=== PATIENT | female | born 1955 | race Caucasian/White ===

== ENCOUNTER 2016-08-11 21:18 | Emergency (ER) | payer BC ==
[~2016-08-11] VITALS: Ht 152.4 cm; Wt 44.6 kg
[~2016-08-11 21:18] MED LIST: CALC500T83 PO; MEDR2.5T PO; MULTTAB58 PO; [UNRECOGNIZED DRUG - CODE] PO
[2016-08-11 21:24] VITALS: TEMP 36.6; Ht 152.4 cm; Wt 44.6 kg
[2016-08-11] MEDS ORDERED: ONDANSETRON INJ 2 MG/ML 2 ML VIAL IM STA (21:38)
[2016-08-11] MEDS ORDERED: MoRPHine SULFATE 10 MG/ML CARP/VIAL IM STA (21:38)
[2016-08-11] MEDS ORDERED: AMOX875T PO (22:01)
[2016-08-11] MEDS ORDERED: MEDR2.5T5 PO (22:01)
[2016-08-11] MEDS ORDERED: VLM2 PO (22:01)
[2016-08-11] MEDS ORDERED: TRD10 PO (22:01)
[2016-08-11] MEDS ORDERED: IBUP-103 PO (22:01)
--- NOTE | 2016-08-11 22:03 | EMERGENCY ROOM VISIT NOTE ---
ED Visit Note First contact with patient: 21:31 CHIEF COMPLAINT: Dental pain s/p procedure this afternoon HISTORY OF PRESENT ILLNESS: This 61-year-old female patient presented to the emergency department complaining of increased until pain since a procedure was performed this afternoon. Patient states 5 weeks ago, she had a tooth extraction. She states she has been in pain for 4 weeks, so saw her family dentist today. The patient states the family dentist told her that the bone was exposed, so they performed a procedure to cut the skin back, she down the bone, then sutured the skin back together. The patient states this procedure was done this afternoon at approximately 2:00. The patient was advised to use collagen on the surgical site, however she states she ran out of the collagen she was given, and has been unable to keep it on the tooth. The patient states she was also prescribed tramadol, which she was given from her dentist area and she states she took one 50 mg tramadol at approximately 5:00 this evening, along with 600 mg ibuprofen. The pain is steady and severe and radiates to the face. The patient did not call her dentist this evening. They rate their pain a 10/10 with no relief. Denies facial swelling or fever. The patient denies any discharge from the mouth. REVIEW OF SYSTEMS: A 6 system review of systems was completed with positives and pertinent negatives listed in the HPI. ALLERGIES: Thimerosal MEDICATIONS: Medroxyprogesterone, Menest, multivitamin, amoxicillin, tramadol, ibuprofen PMH: None SOCIAL HISTORY: And admits to smoking one pack per day. She states she did smoke this evening after her procedure. The patient also admits to drinking one to 2 glasses of wine per night. She states she did drink 2 glasses of wine this evening. The patient denies drug use. PHYSICAL EXAM: Vitals are noted on the nurse's note and reviewed by myself. Vital signs stable. Temperature 36.6C orally. GENERAL: 61 year old female, in no acute distress, but appears in pain, crying, nondiaphoretic, well- developed well-nourished. Mouth: The site of the #30 tooth is swollen with sutures in place. The remainder of the pharynx and tonsils are without erythema , edema, or exudate. The airway is patent. There is no facial swelling, cervical or submandibular lymphadenopathy. The patient appears uncomfortable and in pain. The patient has overall poor dental hygiene. EARS: External auditory canals clear, tympanic membranes pearly diaz without erythema or effusion bilaterally. ED COURSE: The patient was seen and evaluated as above. She was given a dose of IM morphine 10 mg and IM Zofran 4 mg. The patient does report improvement in her symptoms with these medications. She was discharged home in good condition with a home pack for Percocet 5/325. The patient is encouraged to follow up with her dentist tomorrow for increased pain control. I did consult PDMP prior to prescribing narcotics. No suspicious findings noted. DIFFERENTIAL DIAGNOSIS: odontalgia, abscess, infection, dental caries, acute sinusitis, and others. DIAGNOSIS: Odontalgia s/p surgical procedure DISCHARGE INSTRUCTIONS & TREATMENT: You have been treated in the Emergency Department for Dental Pain. You have received pain medicine in the emergency department which impairs your ability to operate a vehicle. It is illegal for you to drive after receiving these medicines. You have been prescribed Percocet to be used for pain control. This is a narcotic medication. You cannot drive or consume alcohol while on this medicine. This medicine should only be used for pain that cannot be controlled with ziag-lec-fqwxadj pain medicines. Take amoxicillin as directed by your dentist. For pain control, you can use the following rzyb-sse-swghtwq medicines (if >12 yo): - Regular strength (325mg/tab) Tylenol (acetaminophen) 2 tabs every 4-6 hours as needed. Do not exceed 12 tablets in a 24 hour period. Avoid taking more than 4 grams (4000 mg) of Tylenol per day. This includes any other sources of acetaminophen you may take on a regular basis. - Regular strength (200 mg/tab) Advil (ibuprofen) 1-2 tabs every 4-6 hours as needed. Do not exceed a dose of 3200 mg per day. Refrain from smoking cigarettes or using chewing tobacco until you have been evaluated by your dentist. Keeping beverages lukewarm and consuming soft foods can decrease your pain. Warm compresses over the affected area may offer some relief. You MUST seek evaluation of your dental pain by a dentist following your visit to the Emergency Department. The Emergency Department is not capable of treating dental issues long-term. You should call your dentist as soon as possible to make an appointment for evaluation of your dental pain. Return to the emergency department if you develop the following symptoms despite treatment course outlined above: fever, intractable pain, increased redness, swelling, or purulent discharge. Problem List Surgical Problems: (1) Hx of appendectomy Status: Resolved (2) Previous section Status: Resolved Current/Historical Medications Scheduled Amoxicillin & Pot Clavulanate (Augmentin 875-125 mg), 1 TAB PO BID Calcium (Calcium), 500 MG PO QID Medroxyprogesterone Acetate (Provera), 2.5 MG PO DAILY Multiple Vitamin (Multivitamin), 1 TAB PO QAM Scheduled PRN Diazepam (Diazepam), 2 MG PO UD PRN for Anxiety Ibuprofen Tab (Advil), 400-600 MG PO Q6H PRN for Pain Ketorolac Tromethamine (Ketorolac Tromethamine), 10 MG PO UD PRN for Pain Oxycodone/Acetaminophen 5MG/325MG (Percocet 5MG/325MG), 1 TAB PO Q6 PRN for Pain Allergies Coded Allergies: Thimerosal (Verified Allergy, Unknown, swelling, 08/11/16) Vital Signs Date Time Temp Pulse Resp B/P (MAP) Pulse Ox O2 Delivery O2 Flow Rate FiO2 08/11/16 22:26 94 18 129/60 94 08/11/16 21:24 36.6 109 22 165/69 95 Room Air Medications Administered Medications (Trade) Dose Ordered Sig/Jennifer Route Start Time Stop Time Status Last Admin Dose Admin Morphine Sulfate (MoRPHine SULFATE INJ) 10 mg NOW STAT IM 08/11/16 21:38 08/11/16 21:42 DC 08/11/16 21:47 10 MG Ondansetron HCl (Zofran Inj) 4 mg NOW STAT IM 08/11/16 21:38 08/11/16 21:42 DC 08/11/16 21:45 4 MG Oxycodone/ Acetaminophen (Percocet 5/ 325MG Home Pack) 1 homepack UD ONCE PO 08/11/16 22:15 08/11/16 22:16 DC 08/11/16 22:24 1 HOMEPACK Departure Information Impression Primary Impression: Odontalgia Dispostion Home / Self-Care Condition GOOD Prescriptions Oxycodone/Acetaminophen 5MG/325MG (PERCOCET 5MG/325MG) Tab 1 TAB PO Q6 Y for Pain, #8 TAB For Initial Treatment Prov: Stacie Song PA-C 08/11/16 Referrals Azalia Campuzano D.O. (PCP) Patient Instructions My [facility] Additional Instructions You have been treated in the Emergency Department for Dental Pain. You have received pain medicine in the emergency department which impairs your ability to operate a vehicle. It is illegal for you to drive after receiving these medicines. You have been prescribed Percocet to be used for pain control. This is a narcotic medication. You cannot drive or consume alcohol while on this medicine. This medicine should only be used for pain that cannot be controlled with oppt-gwi-xopkxwj pain medicines. Take amoxicillin as directed by your dentist. For pain control, you can use the following qjbx-bst-wcwgfxr medicines (if >12 yo): - Regular strength (325mg/tab) Tylenol (acetaminophen) 2 tabs every 4-6 hours as needed. Do not exceed 12 tablets in a 24 hour period. Avoid taking more than 4 grams (4000 mg) of Tylenol per day. This includes any other sources of acetaminophen you may take on a regular basis. - Regular strength (200 mg/tab) Advil (ibuprofen) 1-2 tabs every 4-6 hours as needed. Do not exceed a dose of 3200 mg per day. Refrain from smoking cigarettes or using chewing tobacco until you have been evaluated by your dentist. Keeping beverages lukewarm and consuming soft foods can decrease your pain. Warm compresses over the affected area may offer some relief. You MUST seek evaluation of your dental pain by a dentist following your visit to the Emergency Department. The Emergency Department is not capable of treating dental issues long-term. You should call your dentist as soon as possible to make an appointment for evaluation of your dental pain. Return to the emergency department if you develop the following symptoms despite treatment course outlined above: fever, intractable pain, increased redness, swelling, or purulent discharge.
[2016-08-11] MEDS ORDERED: OXYC-57 PO (22:07)
[2016-08-11] MEDS ORDERED: PERCOCET HOME PACK PO ONE (22:15)
[2016-08-11 22:26] VITALS: BP 129/60; PULSE 94; O2SAT 94
== END 2016-08-11 22:26 | disposition home or self-care (01) ==
LOC: C.EDB 21:20 → C.EDD 22:26
DX: K08.89 Other specified disorders of teeth and supporting structures (principal); F17.210 Nicotine dependence, cigarettes, uncomplicated

== ENCOUNTER → 2017-09-12 | Outpatient (CLI) | payer BC ==
[~2017-09-12] MED LIST changes: +AMOX875T PO; +IBUP-103 PO; +LATA0.5S OP; -MEDR2.5T PO; +MEDR2.5T5 PO; +NABU500T3 PO; +OXYC-90 PO; +TRD10 PO; +VLM2 PO; -[UNRECOGNIZED DRUG - CODE] PO
== END | disposition home or self-care (01) ==
LOC: C.RDSM 07:59
PROVIDERS: ATTEND Physical Medicine & Rehabilitation Sports Medicine
DX: M25.512 Pain in left shoulder (principal)

== ENCOUNTER 2017-09-17 10:38 | Emergency (ER) | payer BC ==
[~2017-09-17] VITALS: Ht 152.4 cm; Wt 42.6 kg
[~2017-09-17 10:38] MED LIST changes: -LATA0.5S OP; -NABU500T3 PO; -OXYC-90 PO
[2017-09-17 10:40] VITALS: TEMP 36.9; Ht 152.4 cm; Wt 42.6 kg
[2017-09-17] MEDS ORDERED: HYDROmorphone INJ 0.5 MG/0.5 ML SYR IM STA (10:58)
[2017-09-17] MEDS ORDERED: NABU500T3 PO (11:35)
[2017-09-17] MEDS ORDERED: OXYCODONE HCL IR 5 MG TAB (IMMEDIATE RELEASE) PO STA (11:35)
[2017-09-17] MEDS ORDERED: LATA0.5S OP (11:35)
[2017-09-17 11:44] VITALS: O2SAT 98
--- NOTE | 2017-09-17 11:52 | EMERGENCY ROOM VISIT NOTE ---
History First contact with patient: 10:53 Chief Complaint: SHOULDER PAIN Stated Complaint: RT SHOULDER PAIN, NO INJURY History of Present Illness The patient is a 62 year old female who presents to the Emergency Room via private vehicle accompanied by male with complaints of "right shoulder pain, no injury". The patient states that this past evening she was using an ab exercise roller noting that she had to have the arms fully outstretched. She does not think that she injured herself during this but when she woke up the following morning, which was this past Monday she noted severe pain in the right lateral proximal shoulder. It is worse with movement. She is right-hand dominant. She rates the overall pain is a 9/10. She takes nabumetone for her arthritis which is providing minimal relief for this. She also notes that she cannot get comfortable, and is having difficulty sleeping. She denies any chest pain or shortness of breath. No exertional symptoms. Review of Systems A complete 10-point Review of Systems was discussed with the patient, with pertinent positives and negatives listed in the History of Present Illness. All remaining Review of Systems questions can be considered negative unless otherwise specified. Past Medical/Surgical History Surgical Problems: (1) Hx of appendectomy (2) Previous section Family History Cancer Social History Smoking Status: Current Every Day Smoker Alcohol Use: occasionally Marital Status: Housing Status: lives with significant other Current/Historical Medications Scheduled Calcium (Calcium), 500 MG PO QID Latanoprost (Xalatan 0.005% Oph Ailin), 1 DROPS OP HS Medroxyprogesterone Acetate (Provera), 2.5 MG PO DAILY Multiple Vitamin (Multivitamin), 1 TAB PO QAM Nabumetone (Relafen), 500 MG PO BID Scheduled PRN Diazepam (Diazepam), 2 MG PO UD PRN for Anxiety Oxycodone Ir (Roxicodone Ir), 1 TAB PO Q6 PRN for Pain Allergies Coded Allergies: Shellfish (Unverified Allergy, Unknown, swelling, 09/17/17) Thimerosal (Verified Allergy, Unknown, swelling, 08/11/16) Physical Exam Vital Signs Date Time Temp Pulse Resp B/P (MAP) Pulse Ox O2 Delivery O2 Flow Rate FiO2 09/17/17 13:57 67 18 149/51 97 Room Air 09/17/17 12:40 70 18 154/52 96 Room Air 09/17/17 11:44 98 09/17/17 10:40 36.9 96 18 170/83 97 Room Air Physical Exam VITAL SIGNS - Vital signs and nursing notes were reviewed. Stable. Afebrile. GENERAL -62-year-old female appearing her stated age who is in no acute distress. Communicates well with provider and answers questions appropriately. SKIN - Without rashes. No meningeal or petechial rash. The skin overlying the right shoulder is unremarkable. HEAD - NC/AT. EYES - PERRL with EOMI bilaterally. Sclera anicteric. EARS - No deformities of external structures noted on gross examination bilaterally. NOSE - Midline and without cyanosis. No epistaxis or purulent drainage noted. MOUTH/OROPHARYNX - Without perioral cyanosis. NECK - Neck with FROM. Supple to palpation. No nuchal rigidity or evidence of meningitis. No C-spine tenderness. No paraspinous musculature tenderness in the C-spine. LUNGS - Chest wall symmetric without accessory muscle use, intercostals retractions, or central cyanosis. Normal vesicular breath sounds CTA B/L. No wheezes, rales, or rhonchi appreciated. CARDIAC - RRR with S1/S2. No murmur, rubs, or gallops appreciated. EXTREMITIES - No clubbing or peripheral cyanosis. No pretibial edema present. There is tenderness to palpation overlying the musculature of the right proximal lateral shoulder. She has excellent distal pulses and good shrimp packer strength in the right upper extremity. Decreased range of motion of the right shoulder severely limited secondary to patient's appreciated level of pain. No clavicular or posterior scapular tenderness. No bony deformity. +5/5 strength noted in UE/LE bilaterally. NEUROLOGIC - Cranial nerves II through XII grossly intact. Sensory intact to light touch throughout. She is neurovascularly intact in right upper extremity. PSYCH - A&O, and cooperates fully with examiner. Pt is very pleasant and interacts well with examiner. Medical Decision & Procedures ER Provider Diagnostic Interpretation: R SHOULDER MIN 2 VIEWS ROUTINE CLINICAL HISTORY: Right shoulder pain. No recent trauma. COMPARISON: Right shoulder radiographs January 31, 2016. FINDINGS: Alignment of the right shoulder is anatomic. No acute fracture is noted. Calcific density along the superolateral aspect the right humeral head has increased since exam of January 31, 2016. Glenohumeral joint osteophytosis is noted. IMPRESSION: 1. No acute fracture or dislocation of the right shoulder. 2. Increase in findings consistent with calcific tendinitis of the right rotator cuff since exam of January 31, 2016. 3. Moderate osteoarthritis of the right glenohumeral and acromioclavicular joints. Electronically signed by: Brian Victor M.D. 09/17/2017 1:17 PM Dictated Date/Time: 09/17/2017 1:15 PM Medications Administered Medications (Trade) Dose Ordered Sig/Jennifer Route Start Time Stop Time Status Last Admin Dose Admin Hydromorphone HCl (Dilaudid Inj) 0.5 mg NOW STAT IM 09/17/17 10:58 09/17/17 11:00 DC 09/17/17 11:06 0.5 MG Oxycodone HCl (Roxicodone Immediate Rel Tab) 5 mg NOW STAT PO 09/17/17 11:35 09/17/17 11:37 DC 09/17/17 11:42 5 MG Medical Decision Patient was seen and evaluated as above in room D7. Review was performed of nursing notes and vital signs. After obtaining a thorough history and physical examination the above work up was performed. She presents to us today with right shoulder pain. She is nontoxic on examination but does appear to be in pain. No chest pain or shortness of breath. It is worse with range of motion. She was given IM Dilaudid, as well as ice packs. She was reevaluated and persistence of pain. She was given oxycodone tablet. She was reevaluated and feeling better, to point where she could then undergo x-rays of the shoulder. Results as above. I suspect she is likely experiencing calcific tendinitis. She is already on NSAIDs. She will be given a short prescription of oxycodone for her pain until she can follow-up with orthopedics. Her appointment is later this week with her established orthopedic group. Here her vital signs are stable. She was educated upon the medication. I do not suspect DC or PE. The patient was educated upon management, educated upon todays findings/results , educated upon symptoms in which to return, had questions answered prior to discharge, and was discharged home in good condition. No red flags in the [place] drug monitoring system. In the evaluation and treatment of this patient, the following differential diagnoses were considered: Shoulder Contusion, Shoulder Fracture, Shoulder Dislocation, Thoracic Outlet Syndrome, Adhesive Capsulitis, Rotator Cuff Tear, Proximal Clavicle Head Fracture, Apical Pneumonia, Pneumothorax, Hemothorax, or TB. Impression Primary Impression: Calcific tendinitis of right shoulder Departure Information Dispostion Home / Self-Care Condition GOOD Prescriptions Oxycodone Ir (Roxicodone Ir) 5 Mg Tab 1 TAB PO Q6 Y for Pain, #18 TAB For Initial Treatment Prov: Srikanth Gifford PA-C 09/17/17 Referrals Azalia Campuzano D.O. (PCP) Patient Instructions My [facility] Additional Instructions You have been treated in the Emergency Department for Shoulder Pain. You have received pain medicine in the emergency department which impairs your ability to operate a vehicle. It is illegal for you to drive after receiving these medicines. You have been prescribed oxycodone immediate release to be used for pain control. This is a narcotic medication. You cannot drive or consume alcohol while on this medicine. This medicine should only be used for pain that cannot be controlled with riaz-rac-fiddvrw pain medicines. Please take a stool softener with this as this can cause constipation. You may continue regular medications. If this is a recent injury (<24 hrs), ice can be applied to the area of pain for the first 3 days to help decrease pain and inflammation. Please keep your appointment with the orthopedic doctor for this week. Keep the shoulder brace/sling in place until evaluated by Orthopedics. Continue to perform range of motion exercises several times per day to help prevent the development of a "frozen shoulder". Return to the Emergency Department if your current symptoms worsen despite treatment course outlined above, or if you develop any of the following symptoms : intractable pain despite aforementioned treatment course or new onset of numbness or tingling of the arm.
--- NOTE | 2017-09-17 13:18 | DIAGNOSTIC IMAGING REPORT ---
R SHOULDER MIN 2 VIEWS ROUTINE CLINICAL HISTORY: Right shoulder pain. No recent trauma. COMPARISON: Right shoulder radiographs January 31, 2016. FINDINGS: Alignment of the right shoulder is anatomic. No acute fracture is noted. Calcific density along the superolateral aspect the right humeral head has increased since exam of January 31, 2016. Glenohumeral joint osteophytosis is noted. IMPRESSION: 1. No acute fracture or dislocation of the right shoulder. 2. Increase in findings consistent with calcific tendinitis of the right rotator cuff since exam of January 31, 2016. 3. Moderate osteoarthritis of the right glenohumeral and acromioclavicular joints. Electronically signed by: Brian Victor M.D. 09/17/2017 1:17 PM Dictated Date/Time: 09/17/2017 1:15 PM
[2017-09-17] MEDS ORDERED: OXYC-90 PO (13:42)
[2017-09-17 13:57] VITALS: BP 149/51; PULSE 67; O2SAT 97
== END 2017-09-17 13:59 | disposition home or self-care (01) ==
LOC: C.EDB 10:40 → C.EDD 13:59
DX: M75.31 Calcific tendinitis of right shoulder (principal); X50.9XXA Other and unspecified overexertion or strenuous movements or postures, initial encounter; F17.200 Nicotine dependence, unspecified, uncomplicated; Z88.8 Allergy status to other drugs, medicaments and biological substances

== ENCOUNTER → 2017-09-22 | Outpatient (CLI) | payer BC ==
[~2017-09-22] MED LIST changes: -AMOX875T PO; -IBUP-103 PO; +LATA0.5S OP; +NABU500T3 PO; +OXYC-90 PO; -TRD10 PO
--- NOTE | 2017-09-22 08:56 | DIAGNOSTIC IMAGING REPORT ---
LEFT SHOULDER MRI HISTORY: Left shoulder pain. TECHNIQUE: Multiplanar multisequence MRI of the left shoulder was performed without contrast. COMPARISON STUDY: Left shoulder 09/12/2017. FINDINGS: AC joint: Small focus of cystic change at the distal clavicle consistent with degenerative change. Rotator cuff: There is an 8 mm focus of calcification at the distal supraspinatus tendon consistent with calcific tendinitis. Mild edema both within and surrounding the anterior distal fibers of the super spaced tendon likely corresponds to the tendinitis. No evidence for rotator cuff tear. Trace fluid within the subacromial/subdeltoid bursa is also likely reactive to the tendinitis. Labrum: Abnormal signal within the superior labrum best seen on coronal image 9. This is consistent with a SLAP tear. Biceps tendon: Intact Bones: No fracture or dislocation. Cartilage: Intact Miscellaneous: No significant joint effusion. IMPRESSION: 1. Abnormal signal within the superior labrum consistent with a SLAP tear. 2. Supraspinatus calcific tendinitis. Electronically signed by: Ilia Nguyen M.D. 09/22/2017 8:55 AM Dictated Date/Time: 09/22/2017 8:50 AM
== END | disposition home or self-care (01) ==
LOC: C.MRI 07:43
PROVIDERS: ATTEND Physical Medicine & Rehabilitation Sports Medicine
DX: M75.02 Adhesive capsulitis of left shoulder (principal); M75.32 Calcific tendinitis of left shoulder

== ENCOUNTER 2023-05-25 19:44 | Inpatient (IN) ==
[2023-05-25 20:32] LABS: Basophils # (auto) 0.02 K/uL (0.00-0.20); Basophils % (auto) 0.2 %; Eosinophils # (auto) 0.01 K/uL (0.00-0.50); Eosinophils % (auto) 0.1 %; Hematocrit (blood only) 38.7 % (37.0-47.0); Immature Granulocytes # (auto) 0.07 K/uL (0.01-0.20); Immature Granulocytes % (auto) 0.6 %; Lymphocytes # (auto) 1.53 K/uL (1.20-3.40); Lymphocytes % (auto) 12.1 %; Mean Corpuscular Hemoglobin 32.7 pg (25.0-34.0); Mean Corpuscular Hgb Conc 36.2 g/dL (32.0-36.0); Mean Corpuscular Volume 90.4 fL (80.0-100.0); Mean Platelet Volume 9.1 fL (9.4-12.4); Monocytes # (auto) 0.96 K/uL (0.11-0.59); Monocytes % (auto) 7.6 %; Neutrophils # (auto) 10.08 K/uL (1.40-6.50); Neutrophils % (auto) 79.4 %; Platelet Count 286 K/uL (130-400); RDW Coefficient of Variation 12.9 % (11.5-14.5); RDW Standard Deviation 42.9 fL (36.4-46.3); Red Blood Count 4.28 M/uL (4.20-5.40); White Blood Count 12.67 K/ul (4.8-10.8)
[2023-05-25 20:40] LABS: Albumin Globulin Ratio 1.5 (0.9-2); Albumin Level 4.4 gm/dl (3.4-5.0); BUN Creatinine Ratio 16.7 (10-20); Bilirubin,Total 0.2 mg/dl (0.2-1.0); Creatinine Clr Calc Pharmacy 64.9 ml/min; Est GFR (African American) 112.4 ml/min; Potassium 3.5 mmol/L (3.5-5.1); Total Protein 7.4 gm/dl (6.0-8.3)
[2023-05-25 20:46] LABS: Troponin I High Sensitivity 3.3 pg/ml (0-14)
[2023-05-25 20:57] LABS: INR 0.9 (0.9-1.1); Partial Thromboplastin Ratio 1.1; Partial Thromboplastin Time 32 Seconds (21-31); Prothrombin Time 9.4 Seconds (9.0-12.0)
[2023-05-25 22:00] LABS: Adenovirus PCR Not Detected (NotDetected); Bordetella parapertussis PCR Not Detected (NotDetected); Bordetella pertussis PCR Not Detected (NotDetected); Chlamydia pneumoniae PCR Not Detected (NotDetected); Coronavirus 229E PCR Not Detected (NotDetected); Coronavirus CoV-2 (COVID19)PCR Not Detected (NotDetected); Coronavirus HKU1 PCR Not Detected (NotDetected); Coronavirus NL63 PCR Not Detected (NotDetected); Coronavirus OC43PCR Not Detected (NotDetected); Human Metapneumovirus PCR DETECTED (NotDetected); Influenza A PCR Not Detected (NotDetected); Influenza B PCR Not Detected (NotDetected); Mycoplasma pneumoniae PCR Not Detected (NotDetected); Parainfluenza Virus 1 PCR Not Detected (NotDetected); Parainfluenza Virus 2 PCR Not Detected (NotDetected); Parainfluenza Virus 3 PCR Not Detected (NotDetected); Parainfluenza Virus 4 PCR Not Detected (NotDetected); Respiratory Syncytial VirusPCR Not Detected (NotDetected); Rhinovirus/Enterovirus PCR Not Detected (NotDetected)
--- NOTE | 2023-05-25 22:06 | Emergency Department Note ---
Impression & Plan SOB (shortness of breath), Pneumonia, Leukocytosis, Failure of outpatient treatment, Infection due to human metapneumovirus (hMPV), Elevated lactic acid level ED Provider Note NAME: DUGLAS FUENTES AGE: 68 SEX: F : 1955 ARRIVES VIA: Walk-In INFORMANT: [Patient] ED PROVIDER(S): [Vin Wolf MD] CHIEF COMPLAINT: Short of breath, cough HISTORY OF PRESENT ILLNESS: The patient is a 68-year-old female who does smoke tobacco. She states that she has had about 6 days of symptoms. She started off with a runny nose, cough, some sweats and chills. She felt short of breath. Patient did have some diarrhea. The patient went to her doctor's office a few days ago. She was diagnosed with pneumonia and placed on Zithromax as well as prednisone. Patient states that despite the medication, she feels worse and she states that she thinks she may have dropped her blood pressure as she has had some amnesia over the last 24 hours. She feels like she was just not thinking properly. The patient was noted to be short of breath and had a lower O2 saturation in triage, she was placed on oxygen. She does not wear oxygen typically. No known sick contacts. PMHx/PSHx/Social Hx: See Below PHYSICAL EXAM: GENERAL: Patient is in no acute distress. Thin. HEENT: No acute trauma, normocephalic atraumatic, mucous membranes moist, no nasal congestion. NECK: No stridor, no adenopathy, no meningismus, trachea is midline. LUNGS: Diminished breath sounds with some wheezes and crackles at the bases, no obvious respiratory distress. HEART: Without murmurs gallops or rubs, regular rate and rhythm. ABDOMEN: Soft, nontender, no peritonitis. EXTREMITIES: No cyanosis, full range of motion of all the joints without pain or difficulty. NEUROLOGIC: Oriented x 3, no acute motor or sensory deficits, no focal weakness. SKIN: No jaundice, no diaphoresis. DIFFERENTIAL DIAGNOSIS: Bronchitis or pneumonia, CHF, exacerbation of COPD, anemia, RI, hypoxia, among others. EMERGENCY DEPARTMENT PROCEDURES: MEDICAL DECISION MAKING: There is a mild leukocytosis, this certainly could be consistent with infection or possibly, her recent steroid use. There was a normal hemoglobin and platelet count. No concerning coagulopathy. Renal panel suggested some dehydration. Lactic acid level was elevated at 4.6, I suspect this elevation is secondary to dehydration and hypoxia, I do not believe the patient to be septic. There is no concerning liver enzyme elevation. ECG showed a sinus tachycardia, no ischemia or dysrhythmia. Cardiac enzyme testing x 1 was not consistent with acute cardiac injury. Respiratory bio fire was positive for human metapneumovirus. Chest film shows some congestion at both bases consistent with potential pneumonia. There was no pneumothorax. On exam, there were diminished breath sounds bilaterally. The patient was given IV ceftriaxone as antibiotic coverage. She was given a DuoNeb, IV Solu-Medrol and IV saline. Patient has failed outpatient treatment. She has had some issues with her memory over the last few days and has felt quite weak and washed out. She was placed on oxygen in triage because of a low O2 saturation. Given her history of tobacco use, given the findings on x-ray, given her elevated lactic acid level, I do think a hospital stay is warranted. I suspect the patient was hypoxic as an outpatient. I spoke with the patient and case management, the on-call hospitalist was consulted. Prior/Outside records/notes reviewed: None. ECG per my interpretation: Indication was shortness of breath. The ECG shows a sinus tachycardia with a rate of 105. There is significant baseline artifact. There is potential old anterior and old inferior infarct. No acute ST elevation, no PVCs. The QTc is 475. Continuous Cardiac Monitoring per my interpretation: An order was placed for continuous cardiac monitoring. The monitor shows a rate of 95 with normal sinus rhythm. Imaging/x-ray results per my interpretation: Chest x-ray shows congestion in both bases. There is evidence for some COPD. No pneumothorax. Chronic Medical/Social conditions affecting care: Chronic smoker. Care/Management discussed with: Case management, the on-call hospitalist. Level of care consideration(s): After review of the information above and other included data: --I believe the patient requires escalation of care to admission Critical Care Note: I have personally spent 41 minutes of critical care time in the direct management of this patient. This includes bedside care, interpretation of diagnostic studies, and testing, discussion with consultants, patient, and family members, and other required patient management activities. This 41 minutes is in excess of all separately billable procedures. DISPOSITION: Admission Past Med/Surg History Medical History (Updated 05/25/23 @ 23:29 by Vin Wolf MD) Osteoarthritis Glaucoma Migraine HX Surgical History H/O wrist surgery RT H/O elbow surgery RT TENNIS ELBOW History of esophagogastroduodenoscopy (EGD) History of colonoscopy H/O bilateral oophorectomy History of section History of appendectomy History of tooth extraction S/P tonsillectomy and adenoidectomy H/O eye surgery RT/LEFT "RADIAL KERATOTOMY" Family History Father Family hx of colon cancer Social History Smoking Status: Current every day smoker Cigarettes Per Day: 20 CIG DAILY; Second Hand Exposure: No; Do You Dip or Chew Tobacco: No; Hx Alcohol Use: Yes Alcohol type: wine Hx Substance Use: No Preferred Language: Malagasy Communication Ability: Effective Senior Project Manager Required: No Beliefs That Will Affect Care: None Current Living Situation: Spouse Feels Safe at Home: Yes Assistive Devices: Glasses Allergies Allergies Allergy/AdvReac Type Severity Reaction Status Date / Time thimerosal Allergy Intermediate swelling Verified 05/25/23 22:21 Home Meds Home Medications Medication Instructions Recorded Confirmed calcium carbonate (Calcium 600) 600 mg PO QAM 09/05/18 05/25/23 medroxyprogesterone 2.5 mg tablet 2.5 mg PO QAM 09/05/18 05/25/23 [id number] 8 mg-folic 400 1 tab PO QAM 09/05/18 05/25/23 mcg-K 50 mcg-lutein 300 mcg tablet (Multivitamin Women 50 Plus) albuterol sulfate 90 mcg/actuation 2 puff inhalation Q4 PRN Shortness 05/25/23 05/25/23 aerosol inhaler Of Breath Or Wheezing estradiol 0.5 mg tablet 0.5 mg PO QAM 05/25/23 05/25/23 Results & Data (ED) Vital Signs Vital Signs - 24 hr 05/25/23 19:48 05/25/23 19:52 05/25/23 19:53 Temperature 36.9 C Temperature Source Temporal Artery Scan Pulse Rate 117 H Pulse Rate [Apical] Pulse Rate from SpO2 Sensor Pulse Rhythm Regular Pulse Strength Normal Respiratory Rate 27 H Respiratory Effort / Characteristics Non-Labored Spontaneous Respiratory Depth Normal Respiratory Pattern Regular Blood Pressure 123/76 Blood Pressure [Right Arm] Blood Pressure Mean 91 Blood Pressure Mean [Right Arm] Blood Pressure Position Sitting Blood Pressure Position [Right Arm] Pulse Oximetry 97 92 Oxygen Delivery Method Room Air Nasal Cannula Nasal Cannula Oxygen Flow Rate 3 3 Sepsis Recent Fever Within 48 Hours No Sepsis New/Unexplained Change in Mental Status N/A Sepsis Action Taken by Nursing No Action Required 05/25/23 20:07 05/25/23 20:25 05/25/23 20:45 Temperature Temperature Source Pulse Rate 102 H 101 H Pulse Rate [Apical] 95 H Pulse Rate from SpO2 Sensor Pulse Rhythm Regular Pulse Strength Respiratory Rate 26 H 22 Respiratory Effort / Characteristics Non-Labored Spontaneous Respiratory Depth Normal Respiratory Pattern Regular Blood Pressure Blood Pressure [Right Arm] 127/71 Blood Pressure Mean Blood Pressure Mean [Right Arm] 89 Blood Pressure Position Blood Pressure Position [Right Arm] Semi-fowlers Pulse Oximetry 91 96 Oxygen Delivery Method Nasal Cannula Nasal Cannula Oxygen Flow Rate 3 3 Sepsis Recent Fever Within 48 Hours Sepsis New/Unexplained Change in Mental Status Sepsis Action Taken by Nursing 05/25/23 22:00 05/25/23 23:00 Temperature Temperature Source Pulse Rate 94 H Pulse Rate [Apical] 93 H Pulse Rate from SpO2 Sensor 94 H Pulse Rhythm Pulse Strength Respiratory Rate 24 18 Respiratory Effort / Characteristics Non-Labored Spontaneous Respiratory Depth Normal Respiratory Pattern Regular Blood Pressure Blood Pressure [Right Arm] 149/86 H Blood Pressure Mean Blood Pressure Mean [Right Arm] 107 Blood Pressure Position Blood Pressure Position [Right Arm] Semi-fowlers Pulse Oximetry 97 99 Oxygen Delivery Method Nasal Cannula Nasal Cannula Oxygen Flow Rate 3 3 Sepsis Recent Fever Within 48 Hours Sepsis New/Unexplained Change in Mental Status Sepsis Action Taken by Prison Medications Current Medication List: was personally reviewed by me Laboratory Data Attestation: I reviewed the patient's lab results. 05/25/23 20:03 05/25/23 20:03 Lab Results 05/25/23 05/25/23 05/25/23 Range/Units 20:03 22:50 Unknown WBC 12.67 H (4.8-10.8) K/ul RBC 4.28 (4.20-5.40) M/uL Hgb 14.0 (12.0-16.0) g/dl Hct 38.7 (37.0-47.0) % MCV 90.4 (80.0-100.0) fL MCH 32.7 (25.0-34.0) pg MCHC 36.2 H (32.0-36.0) g/dL RDW Std Deviation 42.9 (36.4-46.3) fL RDW Coeff of Haiely 12.9 (11.5-14.5) % Plt Count 286 (130-400) K/uL MPV 9.1 L (9.4-12.4) fL Immature Gran % (Auto) 0.6 % Neut % (Auto) 79.4 % Lymph % (Auto) 12.1 % Haakon % (Auto) 7.6 % Eos % (Auto) 0.1 % Baso % (Auto) 0.2 % Neut # (Auto) 10.08 H (1.40-6.50) K/uL Lymph # (Auto) 1.53 (1.20-3.40) K/uL Haakon # (Auto) 0.96 H (0.11-0.59) K/uL Eos # (Auto) 0.01 (0.00-0.50) K/uL Baso # (Auto) 0.02 (0.00-0.20) K/uL Immature Gran # (Auto) 0.07 (0.01-0.20) K/uL PT 9.4 (9.0-12.0) Seconds INR 0.9 (0.9-1.1) APTT 32 H (21-31) Seconds PTT Ratio 1.1 VBG pH 7.39 (7.36-7.41) VBG pCO2 33 L (38-50) mmHg VBG pO2 37 mmHg VBG HCO3 20 mmol/L VBG O2 Saturation < 60.0 % VBG Base Excess -4.1 mEq/L Sodium 135 L (136-145) mmol/L Potassium 3.5 (3.5-5.1) mmol/L Chloride 102 (98-107) mmol/L Carbon Dioxide 15 L (21-32) mmol/L Anion Gap 18 H (3-11) BUN 9 (6-23) mg/dl Creatinine 0.54 L (0.6-1.2) mg/dl Est Cr Clr Drug Dosing 64.9 ml/min Est GFR ( Amer) 112.4 ml/min Est GFR (Non-Af Amer) 97.0 ml/min BUN/Creatinine Ratio 16.7 (10-20) Glucose 173 H (70-99(Fasting)) mg/dl Lactate 4.6 H* (0.4-2.0) mmol/L Calcium 10.0 (8.6-10.3) mg/dl Magnesium 1.9 (1.7-2.4) mg/dl Total Bilirubin 0.2 (0.2-1.0) mg/dl AST 15 (13-39) U/L ALT 10 (7-52) U/L Alkaline Phosphatase 113 H (34-104) U/L Troponin I High Sens 3.3 (0-14) pg/ml Total Protein 7.4 (6.0-8.3) gm/dl Albumin 4.4 (3.4-5.0) gm/dl Globulin 3.0 (2.5-4.0) gm/dl Albumin/Globulin Ratio 1.5 (0.9-2) Adenovirus (PCR) Not Detected (NotDetected) B. pertussis DNA (PCR) Not Detected (NotDetected) B.parapertussis DNA PCR Not Detected (NotDetected) C. pneumoniae DNA (PCR) Not Detected (NotDetected) Coronavirus OC43 (PCR) Not Detected (NotDetected) Coronavirus HKU1 (PCR) Not Detected (NotDetected) Coronavirus 229E (PCR) Not Detected (NotDetected) SARS-CoV-2 (PCR) Not Detected (NotDetected) Coronavirus NL63 (PCR) Not Detected (NotDetected) Human Metapneumovir PCR DETECTED A (NotDetected) Influenza Type A (PCR) Not Detected (NotDetected) Influenza Type B (PCR) Not Detected (NotDetected) M. pneumoniae (PCR) Not Detected (NotDetected) Parainfluenza 1 (PCR) Not Detected (NotDetected) Parainfluenza 2 (PCR) Not Detected (NotDetected) Parainfluenza 3 (PCR) Not Detected (NotDetected) Parainfluenza 4 (PCR) Not Detected (NotDetected) RSV (PCR) Not Detected (NotDetected) Entero/Rhino (PCR) Not Detected (NotDetected) Administered Medications Discontinued Medications Albuterol (Albut/Ipratrop 3mg/0.5mg Neb 3 Ml Vial) 3 ml NEB NOW STA; Protocol Stop: 05/25/23 21:55 Last Admin: 05/25/23 22:36 Dose: 3 ml Documented By: GLORIA Ceftriaxone Sodium (Rocephin) 2,000 mg in 50 mls @ 100 mls/hr IV NOW STA Stop: 05/25/23 22:23 Last Admin: 05/25/23 22:48 Dose: 100 mls/hr Documented By: GLORIA Sodium Chloride (Nss) 1,000 mls @ 999 mls/hr IV .Q1H1M ONE Stop: 05/25/23 22:54 Last Admin: 05/25/23 22:34 Dose: 999 mls/hr Documented By: GLORIA Ioversol (Optiray 320 125ml) 119 ml IV ONCE ONE Stop: 05/25/23 23:09 Last Admin: 05/25/23 23:08 Dose: 119 ml Documented By: LESIAK Methylprednisolone (Methylprednisolone 125 Mg/2 Ml Vial) 60 mg IV NOW STA Stop: 05/25/23 21:55 Last Admin: 05/25/23 22:32 Dose: 60 mg Documented By: GLORIA Imaging Data Radiologist's Impression: Chest X-Ray 05/25/23 19:53 SINGLE VIEW CHEST CLINICAL HISTORY: Atypical chest pain. FINDINGS: An AP, portable, upright chest radiograph is compared to study dated 08/27/2012. The cardiomediastinal silhouette is unremarkable noting atherosclerotic calcification of the thoracic aorta. Emphysema and chronic interstitial thickening is similar to previous. There are bibasilar airspace opacities. No large pleural effusion or pneumothorax is seen. The skeletal structures are osteopenic. The bony thorax is grossly intact. Calcific tendinopathy is noted in the right shoulder. IMPRESSION: 1. Emphysema. 2. Bibasilar airspace opacities likely represent scarring/atelectasis. Correlate clinically for evidence of a superimposed infectious/inflammatory pneumonitis. ACT 112: Negative or not required by law. Electronically signed by: Vin Love M.D. 05/25/2023 10:23 PM Discharge Plan Visit Data Chief Complaint: Shortness of Breath/Dyspnea Stated Complaint: SOB, FLUID IN LUNGS, HAS PNEUMONIA ED Provider: Vin Wolf Discharge Problem: SOB (shortness of breath), Pneumonia, Leukocytosis, Failure of outpatient treatment, Infection due to human metapneumovirus (hMPV), Elevated lactic acid level Patient Disposition: Admitted As Inpatient Condition: Fair Forms Stand Alone Forms: [facility] Prescriptions Prescriptions: No Action medroxyprogesterone 2.5 mg Tablet 2.5 mg PO QAM calcium carbonate [Calcium 600] 600 mg calcium (1,500 mg) Tablet 600 mg PO QAM Multivitamin Women 50 Plus 8 mg iron-400 mcg-300 mcg Tablet 1 tab PO QAM albuterol sulfate 90 mcg/actuation HFA aerosol inhaler 2 puff INHALATION Q4 PRN (Reason: Shortness Of Breath Or Wheezing) estradiol 0.5 mg tablet 0.5 mg PO QAM Referrals Referrals: Makeda Nichols PA-C [Primary Care Provider] - Discharge Problem: Pneumonia Qualifiers: Pneumonia type: due to unspecified organism Laterality: bilateral Lung location: lower lobe of lung Qualified Code(s): J18.9 - Pneumonia, unspecified organism Leukocytosis Qualifiers: Leukocytosis type: unspecified Qualified Code(s): D72.829 - Elevated white blood cell count, unspecified
--- NOTE | 2023-05-25 22:25 | XRay Report ---
SINGLE VIEW CHEST CLINICAL HISTORY: Atypical chest pain. FINDINGS: An AP, portable, upright chest radiograph is compared to study dated 08/27/2012. The cardiom ediastinal silhouette is unremarkable noting atherosclerotic calcification of the thoracic aorta. Emp hysema and chronic interstitial thickening is similar to previous. There are bibasilar airspace opaci ties. No large pleural effusion or pneumothorax is seen. The skeletal structures are osteopenic. The bony thorax is grossly intact. Calcific tendinopathy is noted in the right shoulder. IMPRESSION: 1. Emphysema. 2. Bibasilar airspace opacities likely represent scarring/atelectasis. Correlate clinically for evide nce of a superimposed infectious/inflammatory pneumonitis. ACT 112: Negative or not required by law. Electronically signed by: Vin Love M.D. 05/25/2023 10:23 PM
[2023-05-25] MEDS: methylPREDNISolone 125 MG/2 ML VIAL IV STA (22:32)
[2023-05-25 22:33] LABS: Magnesium 1.9 mg/dl (1.7-2.4)
[2023-05-25] MEDS: SODIUM CHLORIDE 0.9% 1,000 ML IV ONE (22:34)
[2023-05-25] MEDS: ALBUT/IPRATROP 3MG/0.5MG NEB 3 ML VIAL NEB STA (22:36)
[2023-05-25] MEDS: cefTRIAXone SODIUM 2,000 MG/50 ML BAG IV STA (22:48)
[2023-05-25 22:58] LABS: Base Excess VBG -4.1 mEq/L; HCO3 VBG 20 mmol/L; Oxygen Saturation VBG < 60.0 %; PCO2 VBG 33 mmHg (38-50); PO2 VBG 37 mmHg; pH VBG 7.39 (7.36-7.41)
[2023-05-25] MEDS: OPTIRAY 320 125ml IV ONE (23:08)
--- NOTE | 2023-05-25 23:37 | CT Scan Report ---
Exam(s): CTA CHEST IV Amt: OPTIRAY 320 119ML EXAM: CT Angiography Chest With Intravenous Contrast CLINICAL HISTORY: Reason for exam: cp. TECHNIQUE: Axial computed tomographic angiography images of the chest with intravenous contrast. CTDI is 17 mGy and DLP is 252.93 mGy-cm. Automated exposure control was utilized for the study. A dose lowering technique was utilized adhering to the principles of ALARA. MIP reconstructed images were created and reviewed. COMPARISON: No relevant prior studies available. FINDINGS: Pulmonary arteries: Unremarkable. No acute pulmonary embolism. Aorta: No acute findings. No thoracic aortic aneurysm. Lungs: Mild patchy bilateral ground-glass airspace opacities preferentially involving the RIGHT middle lobe and lingula, concerning for mild pneumonia. Dependent atelectasis. Pleural space: Unremarkable. No pleural effusion or pneumothorax. Heart: Unremarkable. No cardiomegaly. No significant pericardial effusion. No evidence of RV dysfunction. Bones/joints: No acute fracture. No dislocation. Soft tissues: Unremarkable. Lymph nodes: Unremarkable. No enlarged lymph nodes. IMPRESSION: 1. No acute pulmonary embolism. 2. Mild patchy bilateral ground-glass airspace opacities preferentially involving the RIGHT middle lobe and lingula, concerning for mild pneumonia. Electronically signed by: Bautista Peacock MD 05/25/23 23:37 PM
--- NOTE | 2023-05-25 23:57 | History & Physical Report ---
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 It may contain grammatical or spelling errors. Kindly contact undersigned for clarification of any documentation item in question. History of Present Illness Chief Complaint: Worsening cough, SOB Primary Care Provider: Makeda Nichols PA-C History obtained from patient and records. Medical history significant for history of ovarian tumor as per records, ongoing tobacco abuse. 1 week history of junky cough symptoms later productive of yellow sputum. Patient with fever, chills, sinus congestion. Wheezing and SOB symptoms as per patient. Denies aspiration. Patient seen at PCPs office yesterday. Z-Zoran, neb, and prednisone course prescribed for complicated bronchitis. Worsening symptoms with pleuritic chest pain at home. Patient brought to ER for evaluation. Solu-Medrol, neb treatment, ceftriaxone administered at the ER. 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 Allergies Allergy/AdvReac Type Severity Reaction Status Date / Time thimerosal Allergy Intermediate swelling Verified 05/25/23 22:21 Home Medications Medication Instructions Recorded Confirmed Type calcium carbonate (Calcium 600) 600 mg PO QAM 09/05/18 05/25/23 History medroxyprogesterone 2.5 mg tablet 2.5 mg PO QAM 09/05/18 05/25/23 History [id number] 8 mg-folic 400 1 tab PO QAM 09/05/18 05/25/23 History mcg-K 50 mcg-lutein 300 mcg tablet (Multivitamin Women 50 Plus) albuterol sulfate 90 mcg/actuation 2 puff inhalation Q4 PRN Shortness 05/25/23 05/25/23 History aerosol inhaler Of Breath Or Wheezing estradiol 0.5 mg tablet 0.5 mg PO QAM 05/25/23 05/25/23 History Past Med/Surg History Medical History (Updated 05/26/23 @ 10:53 by Harman Loera MD) Osteoarthritis Glaucoma Migraine HX Surgical History H/O wrist surgery RT H/O elbow surgery RT TENNIS ELBOW History of esophagogastroduodenoscopy (EGD) History of colonoscopy H/O bilateral oophorectomy History of section History of appendectomy History of tooth extraction S/P tonsillectomy and adenoidectomy H/O eye surgery RT/LEFT "RADIAL KERATOTOMY" Family History Father Family hx of colon cancer Social History Smoking Status: Current every day smoker Tobacco Type: Cigarettes Cigarettes Per Day: 20 CIG DAILY; Second Hand Exposure: No; Do You Dip or Chew Tobacco: No; Hx Alcohol Use: No Hx Substance Use: No Preferred Language: Urdu Communication Ability: Effective Bar Helper Required: No Beliefs That Will Affect Care: None Current Living Situation: Spouse Other Information That Helps Us Care for You: No Feels Safe at Home: Yes Safety Concerns: Feels Safe At This Time Assistive Devices: Glasses Review of Systems Review of Systems: As per HPI, all other systems reviewed and negative Physical Exam Physical Exam: GENERAL: Comfortable, pleasant, underweight, no respiratory distress SKIN: Normal color, warm HEENT: [place] palpebral conjunctivae, no ptosis, dry buccal mucosa, nasal cannula in place NECK : Supple, no tenderness CHEST : Decreased breath sounds, scattered expiratory wheezes, no tenderness HEART : RRR, no obvious murmurs ABDOMEN: no distention, nontender EXTREMITIES : No LE swelling/tenderness, no other conspicuous deformities noted NEUROLOGIC : Coherent, no facial asymmetry, no other gross focality Results & Data Results & Data Vital Signs (Past 12 Hours) Vital Signs Temp Pulse Pulse Resp BP BP Pulse Ox 05/25/23 23:00 94 H 18 99 05/25/23 22:00 93 H 24 149/86 H 97 05/25/23 20:45 95 H 22 127/71 96 05/25/23 20:25 101 H 05/25/23 20:07 102 H 26 H 91 05/25/23 19:53 05/25/23 19:52 92 05/25/23 19:48 36.9 C 117 H 27 H 123/76 97 O2 Del Method O2 Flow Rate 05/25/23 23:00 Nasal Cannula 3 05/25/23 22:00 Nasal Cannula 3 05/25/23 20:45 Nasal Cannula 3 05/25/23 20:25 05/25/23 20:07 Nasal Cannula 3 05/25/23 19:53 Nasal Cannula 3 05/25/23 19:52 Nasal Cannula 3 05/25/23 19:48 Room Air Laboratory Results Laboratory Results WBC 12.67 K/ul (4.8-10.8) H 05/25/23 20:03 RBC 4.28 M/uL (4.20-5.40) 05/25/23 20:03 Hgb 14.0 g/dl (12.0-16.0) 05/25/23 20:03 Hct 38.7 % (37.0-47.0) 05/25/23 20:03 MCV 90.4 fL (80.0-100.0) 05/25/23 20:03 MCH 32.7 pg (25.0-34.0) 05/25/23 20:03 MCHC 36.2 g/dL (32.0-36.0) H 05/25/23 20:03 RDW Std Deviation 42.9 fL (36.4-46.3) 05/25/23 20:03 RDW Coeff of [place]iley 12.9 % (11.5-14.5) 05/25/23 20:03 Plt Count 286 K/uL (130-400) 05/25/23 20:03 MPV 9.1 fL (9.4-12.4) L 05/25/23 20:03 Immature Gran % (Auto) 0.6 % 05/25/23 20:03 Neut % (Auto) 79.4 % 05/25/23 20:03 Lymph % (Auto) 12.1 % 05/25/23 20:03 [place] % (Auto) 7.6 % 05/25/23 20:03 Eos % (Auto) 0.1 % 05/25/23 20:03 Baso % (Auto) 0.2 % 05/25/23 20:03 Neut # (Auto) 10.08 K/uL (1.40-6.50) H 05/25/23 20:03 Lymph # (Auto) 1.53 K/uL (1.20-3.40) 05/25/23 20:03 [place] # (Auto) 0.96 K/uL (0.11-0.59) H 05/25/23 20:03 Eos # (Auto) 0.01 K/uL (0.00-0.50) 05/25/23 20:03 Baso # (Auto) 0.02 K/uL (0.00-0.20) 05/25/23 20:03 Immature Gran # (Auto) 0.07 K/uL (0.01-0.20) 05/25/23 20:03 PT 9.4 Seconds (9.0-12.0) 05/25/23 20:03 INR 0.9 (0.9-1.1) 05/25/23 20:03 APTT 32 Seconds (21-31) H 05/25/23 20:03 PTT Ratio 1.1 05/25/23 20:03 VBG pH 7.39 (7.36-7.41) 05/25/23 22:50 VBG pCO2 33 mmHg (38-50) L 05/25/23 22:50 VBG pO2 37 mmHg 05/25/23 22:50 VBG HCO3 20 mmol/L 05/25/23 22:50 VBG O2 Saturation < 60.0 % 05/25/23 22:50 VBG Base Excess -4.1 mEq/L 05/25/23 22:50 Sodium 135 mmol/L (136-145) L 05/25/23 20:03 Potassium 3.5 mmol/L (3.5-5.1) 05/25/23 20:03 Chloride 102 mmol/L (98-107) 05/25/23 20:03 Carbon Dioxide 15 mmol/L (21-32) L 05/25/23 20:03 Anion Gap 18 (3-11) H 05/25/23 20:03 BUN 9 mg/dl (6-23) 05/25/23 20:03 Creatinine 0.54 mg/dl (0.6-1.2) L 05/25/23 20:03 Est Cr Clr Drug Dosing 64.9 ml/min 05/25/23 20:03 Est GFR ( Amer) 112.4 ml/min 05/25/23 20:03 Est GFR (Non-Af Amer) 97.0 ml/min 05/25/23 20:03 BUN/Creatinine Ratio 16.7 (10-20) 05/25/23 20:03 Glucose 173 mg/dl (70-99(Fasting)) H 05/25/23 20:03 Lactate 4.6 mmol/L (0.4-2.0) H* 05/25/23 22:50 Calcium 10.0 mg/dl (8.6-10.3) 05/25/23 20: Magnesium 1.9 mg/dl (1.7-2.4) 05/25/23 20:03 Total Bilirubin 0.2 mg/dl (0.2-1.0) 05/25/23 20:03 AST 15 U/L (13-39) 05/25/23 20:03 ALT 10 U/L (7-52) 05/25/23 20:03 Alkaline Phosphatase 113 U/L (34-104) H 05/25/23 20:03 Troponin I High Sens 3.3 pg/ml (0-14) 05/25/23 20: Total Protein 7.4 gm/dl (6.0-8.3) 05/25/23 20: Albumin 4.4 gm/dl (3.4-5.0) 05/25/23 20: Globulin 3.0 gm/dl (2.5-4.0) 05/25/23 20:03 Albumin/Globulin Ratio 1.5 (0.9-2) 05/25/23 20:03 Adenovirus (PCR) Not Detected (NotDetected) 05/25/23 Unknown B. pertussis DNA (PCR) Not Detected (NotDetected) 05/25/23 Unknown B.parapertussis DNA PCR Not Detected (NotDetected) 05/25/23 Unknown C. pneumoniae DNA (PCR) Not Detected (NotDetected) 05/25/23 Unknown Coronavirus OC43 (PCR) Not Detected (NotDetected) 05/25/23 Unknown Coronavirus HKU1 (PCR) Not Detected (NotDetected) 05/25/23 Unknown Coronavirus 229E (PCR) Not Detected (NotDetected) 05/25/23 Unknown SARS-CoV-2 (PCR) Not Detected (NotDetected) 05/25/23 Unknown Coronavirus NL63 (PCR) Not Detected (NotDetected) 05/25/23 Unknown Human Metapneumovir PCR DETECTED (NotDetected) A 05/25/23 Unknown Influenza Type A (PCR) Not Detected (NotDetected) 05/25/23 Unknown Influenza Type B (PCR) Not Detected (NotDetected) 05/25/23 Unknown M. pneumoniae (PCR) Not Detected (NotDetected) 05/25/23 Unknown Parainfluenza 1 (PCR) Not Detected (NotDetected) 05/25/23 Unknown Parainfluenza 2 (PCR) Not Detected (NotDetected) 05/25/23 Unknown Parainfluenza 3 (PCR) Not Detected (NotDetected) 05/25/23 Unknown Parainfluenza 4 (PCR) Not Detected (NotDetected) 05/25/23 Unknown RSV (PCR) Not Detected (NotDetected) 05/25/23 Unknown Entero/Rhino (PCR) Not Detected (NotDetected) 05/25/23 Unknown Impressions Chest X-Ray 05/25/23 19:53 SINGLE VIEW CHEST CLINICAL HISTORY: Atypical chest pain. FINDINGS: An AP, portable, upright chest radiograph is compared to study dated 08/27/2012. The cardiomediastinal silhouette is unremarkable noting atherosclerotic calcification of the thoracic aorta. Emphysema and chronic interstitial thickening is similar to previous. There are bibasilar airspace opacities. No large pleural effusion or pneumothorax is seen. The skeletal structures are osteopenic. The bony thorax is grossly intact. Calcific tendinopathy is noted in the right shoulder. IMPRESSION: 1. Emphysema. 2. Bibasilar airspace opacities likely represent scarring/atelectasis. Correlate clinically for evidence of a superimposed infectious/inflammatory pneumonitis. ACT 112: Negative or not required by law. Electronically signed by: Vin Love M.D. 05/25/2023 10:23 PM Chest CTA 05/25/23 22:41 Exam(s): CTA CHEST IV Amt: OPTIRAY [id number] EXAM: CT Angiography Chest With Intravenous Contrast CLINICAL HISTORY: Reason for exam: cp. TECHNIQUE: Axial computed tomographic angiography images of the chest with intravenous contrast. CTDI is 17 mGy and DLP is 252.93 mGy-cm. Automated exposure control was utilized for the study. A dose lowering technique was utilized adhering to the principles of ALARA. MIP reconstructed images were created and reviewed. COMPARISON: No relevant prior studies available. FINDINGS: Pulmonary arteries: Unremarkable. No acute pulmonary embolism. Aorta: No acute findings. No thoracic aortic aneurysm. Lungs: Mild patchy bilateral ground-glass airspace opacities preferentially involving the RIGHT middle lobe and lingula, concerning for mild pneumonia. Dependent atelectasis. Pleural space: Unremarkable. No pleural effusion or pneumothorax. Heart: Unremarkable. No cardiomegaly. No significant pericardial effusion. No evidence of RV dysfunction. Bones/joints: No acute fracture. No dislocation. Soft tissues: Unremarkable. Lymph nodes: Unremarkable. No enlarged lymph nodes. IMPRESSION: 1. No acute pulmonary embolism. 2. Mild patchy bilateral ground-glass airspace opacities preferentially involving the RIGHT middle lobe and lingula, concerning for mild pneumonia. Electronically signed by: Bautista Peacock MD 05/25/23 23:37 PM Diagnostic Findings EKG as per my interpretation :Rate 110, sinus tachycardia, LAD, LAFB, no ischemia
[2023-05-26] MEDS: DOXYCYCLINE HYCLATE 100 MG in DEXTROSE 5% MINI-B 100 ML IV STA (00:13)
[2023-05-26] MEDS: MAGNESIUM SULFATE / D5W 1 GM/100 ML BAG IV ONE (00:13)
[2023-05-26] MEDS: MELATONIN 3 MG TAB PO PRN ×2 (00:13→01:22)
[2023-05-26] MEDS: SODIUM CHLORIDE 0.9% 500 ML IV ONE (00:15)
[2023-05-26] MEDS ORDERED: PROMETHAZINE HCL 6.25 MG in SODIUM CHLORIDE 0.9% 50 ML IV PRN (00:52)
[2023-05-26] MEDS: IPRATROPIUM BROMIDE NEB SOLN 0.02% 0.5MG/2.5ML VIAL INH SCH (01:01)
[2023-05-26] MEDS: LEVALBUTEROL 1.25 MG/3 ML NEB NEB SCH (01:01)
[2023-05-26] MEDS: NICOTINE 21 MG/24 HR TDSY TD STA (01:02)
[2023-05-26] MEDS: MELATONIN 3 MG TAB PO STA (01:22)
[2023-05-26] MEDS: POTASSIUM CHLORIDE 20 MEQ in LACTATED RINGER'S 1,000 ML IV ONE (02:22)
[2023-05-26] MEDS: LORazepam 0.5 MG TAB PO STA (02:22)
[2023-05-26 02:43] LABS: Basophils # (auto) 0.02 K/uL (0.00-0.20); Basophils % (auto) 0.2 %; Eosinophils # (auto) 0.02 K/uL (0.00-0.50); Eosinophils % (auto) 0.2 %; Hemoglobin 11.7 g/dl (12.0-16.0); Immature Granulocytes # (auto) 0.09 K/uL (0.01-0.20); Immature Granulocytes % (auto) 0.8 %; Lymphocytes # (auto) 0.82 K/uL (1.20-3.40); Lymphocytes % (auto) 6.8 %; Mean Corpuscular Hemoglobin 32.1 pg (25.0-34.0); Mean Corpuscular Hgb Conc 34.4 g/dL (32.0-36.0); Mean Corpuscular Volume 93.4 fL (80.0-100.0); Mean Platelet Volume 9.2 fL (9.4-12.4); Monocytes # (auto) 0.44 K/uL (0.11-0.59); Monocytes % (auto) 3.7 %; Neutrophils # (auto) 10.59 K/uL (1.40-6.50); Neutrophils % (auto) 88.3 %; Platelet Count 232 K/uL (130-400); RDW Standard Deviation 44.5 fL (36.4-46.3); Red Blood Count 3.64 M/uL (4.20-5.40); White Blood Count 11.98 K/ul (4.8-10.8)
[2023-05-26 02:44] LABS: BUN Creatinine Ratio 16.7 (10-20); Calcium 7.9 mg/dl (8.6-10.3); Est GFR (African American) 122.1 ml/min; Est GFR (Non-African American) 105.3 ml/min; Potassium 3.5 mmol/L (3.5-5.1)
[2023-05-26] MEDS: LACTATED RINGER'S 1,000 ML IV ONE (05:42)
[2023-05-26] MEDS: ENOXAPARIN INJ 30 MG/0.3 ML SYR SQ SCH (07:29)
[2023-05-26] MEDS: MULTIVITAMIN TAB PO SCH (07:29)
--- NOTE | 2023-05-26 10:54 | Hospitalist Progress Note ---
Date of Service May 26, 2023 Assessment & Plan (1) Severe sepsis: (2) Elevated lactic acid level: (3) Infection due to human metapneumovirus (hMPV): (4) Failure of outpatient treatment: (5) Leukocytosis: (6) Pneumonia: (7) SOB (shortness of breath): Plan Pt is a 68yoF with PMHx significant for history of ovarian tumor as per records, ongoing tobacco abuse admitted with sepsis in the setting of pneumonia. Sepsis Pneumonia Human Metapneumovirus Infection Pt with leukocytosis, tachycardia, tachypnea on admission. Infectious source pulmonary Chest XRAY with noted bibasilar opacities Chest CTA noting no PE but R middle lobe and lingula pneumonia Biofire positive for human metapneumovirus infection Blood Cx x2 pending Sputum Cx ordered and pending UA pending lactate elevated at 4.6 on arrival, downtrending after fluid resuscitation procalcitonin pending Pt states she sometimes has choking episodes, R sided pneumonia sugg of possible aspiration. Speech consult pending. Rocephin broadened to Zosyn for aspiration coverage, continue doxycycline for atypicals Supportive treatments for viral infection Continue to monitor Acute hypoxic respiratory Failure Pt with noted episodes of hypoxia Likely in setting of above No oxygen requirement at baseline Nebs scheduled Wean oxygen as tolerated Anemia Hgb dropped from 14 to 11.7 Pt likely was dehydrated/hemoconcentrated on arrival Anemia labs in AM (iron panel, folate, b12) Continue to monitor H/H Hyponatremia Slight decrease in sodium level Continue to monitor Prediabetes Glucose levels elevated Hgba1c of 5.7 indicating prediabetes Lifestyle changes- watching carb intake, exercise PCP followup COPD Tobacco Use Pt is a daily smoker for the last 50years chest xray noting emphysema Likely complicating factor in above Nicotine patch Outpatient further evaluation and management hx of ovarian tumor as per records Trey tumor as per outpatient records patient follows with [facility] Continued outpt follow up Malnutrition Low BMI Adult failure to thrive Dietitian consult, appreciate recs Diet: DMII DVT prophylaxis: Lovenox subcu Dispo: PT/OT ordered Admission and Anticipated Discharge Date Admission Date: May 25, 2023 Subjective Pt was seen while still down in the ED. States that she was SOB with activity, had not been as active yet in the hospital. States she was treating her symptoms at home with azithromycin and steroids and did ot seem to be improving. Asking about going home. Review of Systems Review of Systems: All systems reviewed & are unremarkable except as noted in Subjective Physical Exam Physical Exam: General: Alert, oriented Skin: No noted rashes or bruises Psych: Appropriate mood and affect Neuro: No gross deficits HEENT: NC/AT CV: RRR Resp: Breath sounds coarse bilaterally, coughs with deep breaths Abdomen: Soft, nontender, nondistended Extremities: No edema in lower extremities bilaterally. Results & Data Results & Data Vital Signs (Past 12 Hours) Vital Signs Pulse Pulse Resp BP Pulse Ox Pulse Ox O2 Del Method 05/26/23 08:12 103 H 05/26/23 08:00 101 H 27 H 118/65 92 Room Air 05/26/23 07:35 Room Air 05/26/23 06:59 84 20 93 Room Air 05/26/23 06:40 93 H 18 115/73 94 Nasal Cannula 05/26/23 04:00 103 H 21 129/78 95 Nasal Cannula 05/26/23 02:00 100 H 16 141/74 H 98 Nasal Cannula 05/26/23 02:00 88 20 141/74 H 98 Room Air 05/26/23 01:58 93 H 20 89 L Room Air 05/26/23 01:40 93 H 20 96 Room Air 05/26/23 01:30 Nasal Cannula 05/26/23 01:13 96 05/26/23 01:00 88 17 150/95 H 97 Nasal Cannula 05/26/23 00:48 88 05/26/23 00:00 88 20 143/85 H 98 Nasal Cannula 05/25/23 23:20 90 20 133/82 97 Nasal Cannula 05/25/23 23:00 94 H 18 99 Nasal Cannula O2 Del Method O2 Flow Rate O2 Flow Rate 05/26/23 08:12 05/26/23 08:00 05/26/23 07:35 05/26/23 06:59 05/26/23 06:40 1 05/26/23 04:00 1 05/26/23 02:00 1 05/26/23 02:00 05/26/23 01:58 05/26/23 01:40 05/26/23 01:30 3 05/26/23 01:13 Nasal Cannula 3 05/26/23 01:00 3 05/26/23 00:48 05/26/23 00:00 3 05/25/23 23:20 3 05/25/23 23:00 3 Diagnostic Findings Chest X-Ray 05/25/23 19:53 SINGLE VIEW CHEST CLINICAL HISTORY: Atypical chest pain. FINDINGS: An AP, portable, upright chest radiograph is compared to study dated 08/27/2012. The cardiomediastinal silhouette is unremarkable noting atherosclerotic calcification of the thoracic aorta. Emphysema and chronic interstitial thickening is similar to previous. There are bibasilar airspace opacities. No large pleural effusion or pneumothorax is seen. The skeletal structures are osteopenic. The bony thorax is grossly intact. Calcific tendinopathy is noted in the right shoulder. IMPRESSION: 1. Emphysema. 2. Bibasilar airspace opacities likely represent scarring/atelectasis. Correlate clinically for evidence of a superimposed infectious/inflammatory pneumonitis. ACT 112: Negative or not required by law. Electronically signed by: Vin Love M.D. 05/25/2023 10:23 PM Chest CTA 05/25/23 22:41 Exam(s): CTA CHEST IV Amt: OPTIRAY [id number] EXAM: CT Angiography Chest With Intravenous Contrast CLINICAL HISTORY: Reason for exam: cp. TECHNIQUE: Axial computed tomographic angiography images of the chest with intravenous contrast. CTDI is 17 mGy and DLP is 252.93 mGy-cm. Automated exposure control was utilized for the study. A dose lowering technique was utilized adhering to the principles of ALARA. MIP reconstructed images were created and reviewed. COMPARISON: No relevant prior studies available. FINDINGS: Pulmonary arteries: Unremarkable. No acute pulmonary embolism. Aorta: No acute findings. No thoracic aortic aneurysm. Lungs: Mild patchy bilateral ground-glass airspace opacities preferentially involving the RIGHT middle lobe and lingula, concerning for mild pneumonia. Dependent atelectasis. Pleural space: Unremarkable. No pleural effusion or pneumothorax. Heart: Unremarkable. No cardiomegaly. No significant pericardial effusion. No evidence of RV dysfunction. Bones/joints: No acute fracture. No dislocation. Soft tissues: Unremarkable. Lymph nodes: Unremarkable. No enlarged lymph nodes. IMPRESSION: 1. No acute pulmonary embolism. 2. Mild patchy bilateral ground-glass airspace opacities preferentially involving the RIGHT middle lobe and lingula, concerning for mild pneumonia. Electronically signed by: Bautista Peacock MD 05/25/23 23:37 PM (5) Leukocytosis Leukocytosis type: unspecified Qualified Code(s): D72.829 - Elevated white b lood cell count, unspecified (6) Pneumonia Laterality: bilateral Lung location: lower lobe of lung Pneumonia type: due to unspecified organism Qualified Code(s): J18.9 - Pneumonia, unspecified organism
[2023-05-26 11:29] LABS: Estimated Average Glucose 117 mg/dl; Hemoglobin A1C 5.7 % (4.5-5.6)
[2023-05-26] MEDS: NICOTINE 21 MG/24 HR TDSY TD SCH (15:02)
[2023-05-26] MEDS: PIPER/TAZO 4.5g in D5W MINI-B 100 ML IV ONE (18:13)
[2023-05-26] MEDS: ACETAMINOPHEN 325 MG TAB PO PRN (20:25)
[2023-05-26] MEDS: DOXYCYCLINE HYCLATE 100 MG CAP PO SCH (20:25)
[2023-05-26 20:58] LABS: Appearance Urine Clear (Clear); Bilirubin Urine Negative (Negative); Blood Urine Negative (Negative); Color Urine Yellow; Glucose Urine UA Negative (Negative); Ketones Urine Negative (Negative); Leukocyte Esterase Urine Negative (Negative); Nitrite Urine Negative (Negative); Protein Urine Negative (Negative); Specific Gravity Urine 1.016 (1.000-1.030); Urobilinogen Urine Negative (Negative); pH Urine 5.5 (4.5-7.5)
[2023-05-26] MEDS: LORazepam 0.5 MG TAB PO PRN (21:33)
--- OUTSIDE RECORDS SUMMARY | 2023-05-26 21:34 | External Medical Summary | Summary of Care ---
Author Name Unknown Organization [facility] Address [address] [place] [address] Phone [phone] Care Team Providers Care Illuminator Name Role Phone Daisha Mcfaddenmayra Lester Primary Care Provider Reason for Visit * Reason Onset Date Comments Advice 02/07/[address] Georges Encounter Details Date Type Department Care Team ([facility] st Contact Info) Description 02/07/2023 Telephone Gynecology/Obstetrics [facility] [address] [place] [id number] Tylor Georges MD [address] [place] [address] Advice (Review with Dr. Georges) Allergies Active Allergy Reactions Criticality Noted Date Comments Mercury 05/10/2013 Shellfish Allergy Edema Other,Rash High 04/09/2014 Thimerosal (Thiomersal) 05/10/2013 Other reaction(s): swelling Mercurial Derivatives Edema Other 03/09/2006 Generalized body documented as of this encounter (statuses as of 02/07/2023) Medications Medication Sig Dispensed Refills Start Date End Date Status WOMENS MULTIVITAMIN PLUS PO TABS 1 daily 0 Active Calcium Carb-Cholecalciferol 1000-800 MG-UNIT Oral Tablet 3 daily 0 02/15/2018 Active latanoprost (XALATAN) 0.005 % ophthalmic solution Instill 1 Drop into both eyes at bedtime. 2.5 mL 12 02/15/2018 Active Claritin 10 MG Oral Tablet Take by mouth. As needed 0 Active NATURAL SUPPLEMENT Take by mouth daily. Takes potassium daily, unsure of dose 0 Active Esterified Estrogens (MENEST) 0.625 MG TABS TAKE 1 TABLET DAILY 90 Tab 3 10/24/2019 Active Additional Information Patient not taking.Reported on 11/21/2022 Timolol Maleate 0.5 % Ophthalmic Solution (Timoptic) INSTILL 1 DROP INTO AFFECTED EYE(S) ONCE DAILY IN THE MORNING 0 07/15/2020 Active Oxymetazoline HCl 0.05 % Nasal SolutionIndications: Dysfunction of Eustachian tube, left,Nasal sinus congestion Administer 2 Sprays into each nostril 2 times a day as needed for Congestion (for congestion). Do not use for more than three days. 15 mL 0 03/04/2022 Active medroxyPROGESTERone Acetate 2.5 MG Oral Tablet (Provera)Indications :Menopause,Hot flashes Take 1 Tablet by mouth in the morning. 90 Tablet 4 06/14/2022 Active tiZANidine HCl 2 MG Oral Tablet (Zanaflex)Indication s:Acute right-sided low back pain with left-sided sciatica Take 1 Tablet by mouth every 8 hours as needed for Muscle spasms. 30 Tablet 0 06/16/2022 Active Estradiol 0.5 MG Oral Tablet (Estrace) Take 1 Tablet by mouth in the morning. Every other day take 2 tablets by mouth in the morning. 60 Tablet 6 06/20/2022 Active Fluticasone Propionate 50 MCG/ACT Nasal Suspension (Flonase)Indications :Tinnitus of left ear,Dysfunction of left eustachian tube Administer 2 Sprays into each nostril in the morning. 16 g 2 08/26/2022 Active LORazepam 0.5 MG Oral Tablet (Ativan)Indications: Anxiety about health Take 1 Tablet by mouth every 6 hours as needed for Anxiety. 10 Tablet 0 10/25/2022 Active Ibuprofen 600 MG Oral Tablet (Motrin) Take 1 Tablet by mouth in the morning and 1 Tablet at noon and 1 Tablet before bedtime. With meals.. 30 Tablet 0 11/03/2022 Active Ventolin HFA 108 (90 Base) MCG/ACT Inhalation Aerosol SolutionIndications: Bronchitis, complicated INHALE BY MOUTH 2 PUFFS EVERY 4 HOURS NEEDED FOR WHEEZING. 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 Overview: At [facility] documented as of this encounter (statuses as of 02/07/2023) Resolved Problems Problem Noted Date Diagnosed Date Resolved Date Malnutrition of moderate degree 05/12/2020 10/23/2021 documented as of this encounter (statuses as of 02/07/2023) Immunizations Name Administration Dates Next Due COVID-19 mRNA, LNP-s, No Pre serve, 2-Dose Series ([email or web address]) 07/10/2021,11/06/2020,03/28/2020,03/07 COVID-19, LNP-s, No Preserve , Kenny-sucrose, Ages 12+ (Pfizer) 06/09/2021 COVID-19, MRNA-LNP, 23-24, P F, 30 MCG/0.3 mL, 12 YRS AND ABOVE, IM (PFIZER-Comirnaty) 11/21/2022 Pneumococcal Conjugate Vacci ne, 20-valent ([email or web address]) 11/15/2022 Pneumococcal Polysaccharide PPV23 (Pneumovax) 08/14/2012 Seasonal Influenza, PF, 6 M & above, IM , (FluLaval or Fluzone) 10/16/2019,12/08/2018,02/15/2018,03/16 Seasonal Influenza, Quadriva lent Hd (Fluzone Hd) 11/15/2022,11/09/2021 Seasonal Influenza, Quadriva lent Hd, 65+ Yrs 10/27/2020 Seasonal Influenza, Split, I IV3, With Preserve, Inj 12/15/2014,12/16/2013 TDAP (age 10 and older)(Boostrix) 12/21/2020 documented as of this encounter Social History Tobacco Use Types Packs/Day Years Used Date Smoking Tobacco: Every Day Cigarettes 1 Smokeless Tobacco: Never Alcohol Use Standard Drinks/Week Comments Yes 0 (1 standard drink = 0.6 oz pur e alcohol) 3 glasses of wine per night PHQ-2 Answer Date Recorded PHQ-2 Score 0 12/09/2017 Sex and Gender Information Value Date Recorded Sex Assigned at Not on file Gender Identity Not on file Sexual Orientation Not on file Job Start Date Occupation Industry Not on file Not on file Not on file documented as of this encounter Miscellaneous Notes * Telephone Encounter - Sheila Marcos LPN - 02/07/2023 11:37 AM EST Pt notified and agreeable. Will anamaria at this time. * Telephone Encounter - Sheila Marcos LPN - 02/07/2023 11:[address] Georges, patient can schedule an appointment if she would like to talk about possible optionsfor bleeding, or continue to monitor. * Telephone Encounter - Sheila Marcos LPN - 02/07/2023 8:38 AM EST Pt had a D&C for PMB with DR Pereira 10/2022. Pathology benign. Called in December with c/o continued daily spotting that varies in color and amount. Not wearing any more than a panty liner. Per Dr. Georges at that time patient ok to monitor as it could be likely from fibroid. Last US prior to D&C on 09/06 IMPRESSION: Fibroid uterus with multiple calcifications Endometrium not well visualized on this examination, obscured by the adjacent fibroids. Further evaluation recommended. documented in this encounter Plan of Treatment Scheduled Procedures Name Priority Associated Diagnoses Date/Ti me COLONOSCOPY FLEXIBLE PROXIMA L DIAGNOSTIC Recall Family history of colorectal cancer Health Maintenance Due Date Last Done Comments Zoster Vaccines (1 of 2) 2005 Depression Screening 03/20/2019 03/20/2018 COLONOSCOPY-EVERY 5 YRS AGES 18-100 12/22/2020 12/23/2015, 12/23/2015, 01/21/2012 (Done elsewhere) *BISPHONATE OR OTHER ACCEPTABLE MEDICATION NEEDED FOR OSTEOPOROSIS (REFER TO SMARTSET #1146) 06/04/2022 Lipid Panel 02/20/2023 02/20/2018, 05/03/2013 Mammogram 08/31/2023 08/30/2022, 08/07, 06/08/2017, Additional history exists DXA Scan 08/30/2024 08/30/2022, 08/07, 02/28/2018, Additional history exists VITAMIN D LEVEL ONCE IN A LIFETIME-USE SMARTSET# 94570 Completed 05/03/2013 Pap Smear Discontinued 05/31/2017, 11/07, 03/20/2012, Additional history exists Influenza Vaccine (FLU shot) Completed 11/15/2022, 11/09/2021, 10/27/2020, Additional history exists Pneumococcal Vaccine: 65+ Years Completed 11/15/2022, 08/14/2012 COVID-19 Vaccine Completed 11/21/2022, 05/2021, 06/09/2021, Additional history exists GARDASIL-HPV IMMUNIZATION SERIES Aged Out No longer eligible based on patient's age to complete this topic Hepatitis B Aged Out No longer eligi ble based on patient's age to complete this topic MENINGOCOCCAL (MENACTRA/MENVEO) Aged Out No longer eligible based on patient's age to complete this topic documented as of this encounter Medical Devices Not on filedocumented as of this encounter Care Teams Illuminator Relationship Specialty Start Date End Date Lesa Ashton DO [address] [place] [address] PCP - General Family Medicine 02/15/18 documented as of this encounter
--- OUTSIDE RECORDS SUMMARY | 2023-05-26 21:34 | External Medical Summary | Summary of Care ---
Author Name Unknown Organization [facility] Address [address] [place] [address] Phone [phone] Care Team Providers Care Solar/Renewable Energy Sales Name Role Phone Lesa Ashton DO Primary Care Provider Reason for Referral * Ancillary Services (Within 10 days (routine)) - Authorized Specialty Diagnoses / Procedures Referred By Kj pathak Referred To Contact Audiology Diagnoses Tinnitus of left ear Fabienne Emanuel PA-C [address] [place] [id number] Referral ID Status Reason Start Date Expiration Date Visits Requested Visits Authorized [id number] Authorized Ancillary Services Required [phone] Question Answer Referral Priority Within 10 days (routine) Where should this appointment be scheduled? [facility] Reason for Referral: Tinnitus Encounter Details Date Type Department Care Team ([facility] Contact Info) Description 11/15/2022 Telephone Family Practice [facility] [address] [place] [address] Fabienne Emanuel PA-C [address] [place] [address] [address] Allergies Active Allergy Reactions Criticality Noted Date Comments Mercury 05/10/2013 Shellfish Allergy Edema Other,Rash High 04/09/2014 Thimerosal (Thiomersal) 05/10/2013 Other reaction(s): swelling Mercurial Derivatives Edema Other 03/09/2006 Generalized body documented as of this encounter (statuses as of 02/14/2023) Medications Medication Sig Dispensed Refills Start Date End Date Status WOMENS MULTIVITAMIN PLUS PO TABS 1 daily 0 Active Calcium Carb-Cholecalcife rol 1000-800 MG-UNIT Oral Tablet 3 daily 0 [...] 07/15/2020 Active Oxymetazoline HCl 0.05 % Nasal SolutionIndicatio ns:Dysfunction of Eustachian tube, left,Nasal sinus congestion Administer 2 Sprays into each nostril 2 times a day as needed for Congestion (for congestion). Do not use for more than three days. 15 mL 0 03/04/2022 Active medroxyPROGESTERo ne Acetate 2.5 MG Oral Tablet (Provera)Indicati ons:Menopause,Hot flashes Take 1 Tablet by mouth in the morning. 90 Tablet 4 06/14/2022 Active tiZANidine HCl 2 MG Oral Tablet (Zanaflex)Indicat ions:Acute right-sided low back pain with left-sided sciatica Take 1 Tablet by mouth every 8 hours as needed for Muscle spasms. 30 Tablet 0 06/16/2022 Active Estradiol 0.5 MG Oral Tablet (Estrace) Take 1 Tablet by mouth in the morning. Every other day take 2 tablets by mouth in the morning. 60 Tablet 6 06/20/2022 Active Fluticasone Propionate 50 MCG/ACT Nasal Suspension (Flonase)Indicati ons:Tinnitus of left ear,Dysfunction of left eustachian tube Administer 2 Sprays into each nostril in the morning. 16 g 2 08/26/2022 Active LORazepam 0.5 MG Oral Tablet (Ativan)Indicatio ns:Anxiety about health Take 1 Tablet by mouth every 6 hours as needed for Anxiety. 10 Tablet 0 10/25/2022 Active Ibuprofen 600 MG Oral Tablet (Motrin) Take 1 Tablet by mouth in the morning and 1 Tablet at noon and 1 Tablet before bedtime. With meals.. 30 Tablet 0 11/03/2022 Active ProAir HFA 108 (90 Base) MCG/ACT Inhalation Aerosol SolutionIndicatio ns:Bronchitis, complicated Inhale by mouth 2 Puffs every 4 hours as needed for Wheezing. 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 Overview: At [facility] documented as of this encounter (statuses as of 02/14/2023) Resolved Problems Problem Noted Date Diagnosed Date Resolved Date Malnutrition of moderate degree 05/12/2020 10/23/2021 documented as of this encounter (statuses as of 02/14/2023) Immunizations Name Administration Dates Next Due COVID-19 mRNA, LNP-s, No Pre serve, 2-Dose Series (Popcorn5) 07/10/2021,11/06/2020,03/28/2020,03/07 COVID-19, LNP-s, No Preserve , Kenny-sucrose, Ages 12+ (Pfizer) 06/09/2021 Pneumococcal Conjugate Vacci ne, 20-valent ([id number]) 11/15/2022 Pneumococcal Polysaccharide PPV23 (Pneumovax) 08/14/2012 Seasonal [...] encounter Miscellaneous Notes * Telephone Encounter - Mitali Pena LPN - 12/02/2022 4:23 PM EDT Patient aware and verbalized understanding, will comply. Asks that an Audiology referral is sent to [facility] in [place]. Referral pended. Please advise. * Telephone Encounter - Thao Moon LPN - 12/02/2022 4:09 PM EDT Left message for pt to call back. * Telephone Encounter - Thao Moon LPN - 11/23/2022 2:06 PM EDT Left message for pt to call back. * Telephone Encounter - Fabienne Emanuel PA-C - 11/15/2022 6:47 PM EDT Please inform patient of Ines's response. Would refer to one of the businesses to inquire about hearing aids. * Telephone Encounter - Fabienne Emanuel PA-C - 11/15/2022 6:47 PM EDT ----- Message from Ines Echevarria PA-C sent at 11/15/2022 10:09 AM EDT ----- Hi Fabienne, Yes, she could definitely consider a hearing aid. This will most likely help with her tinnitus. Options for audiologists in [facility] are [facility] or [facility] in [place]. I heard that [facility] is currently not taking any new patients. Thanks, Ines ----- Message ----- From: Fabienne Emanuel PA-C Sent: 11/15/2022 9:38 AM EDT To: PAWEL Melissa, Seeing Valeria who continues to have the tinnitus in her left ear. Reviewed the notes from you and the hand molder and caster. Audiology states mild to moderate hearing loss. Is a hearing aid an option for this nice lady? Appreciate your input, May documented in this encounter Plan of Treatment Scheduled Procedures Name Priority Associated Diagnoses Date/Ti me COLONOSCOPY FLEXIBLE PROXIMA L DIAGNOSTIC Recall Family history of colorectal cancer Scheduled Referrals Name Type Priority Associated Diagnoses Orde r Schedule AUDIOLOGY REFERRAL OP Referral Within 10 days (routine) Tinnitus of left ear Ordered: 12/03/2022 Health Maintenance Due Date Last Done Comments Zoster Vaccines (1 of 2) 2005 Depression Screening 03/20/2019 03/20/2018 COLONOSCOPY-EVERY 5 YRS AGES 18-100 12/22/2020 12/23/2015, 12/23/2015, 01/21/2012 (Done elsewhere) *BISPHONATE OR OTHER ACCEPTABLE MEDICATION NEEDED FOR OSTEOPOROSIS (REFER TO SMARTSET #1146) 06/04/2022 Lipid Panel 02/20/2023 02/20/2018, 05/03/2013 Mammogram 08/31/2023 08/30/2022, 0706/2022, 06/08/2017, Additional history exists DXA Scan 08/30/2024 08/30/2022, 08/07, 02/28/2018, Additional history exists VITAMIN D LEVEL ONCE IN A LIFETIME-USE SMARTSET# [id number] Completed 05/03/2013 Pap Smear Discontinued 05/31/2017, 11/07, [...] Not on filedocumented as of this encounter Visit Diagnoses Diagnosis Tinnitus of left ear- Primary Unspecified tinnitus documented in this encounter Care Teams Solar/Renewable Energy Sales Relationship Specialty Start Date End Date Lesa Ashton DO [address] [place] [address] PCP - General Family Medicine 02/15/18 documented as of this encounter
--- OUTSIDE RECORDS SUMMARY | 2023-05-26 21:34 | External Medical Summary | Summary of Care ---
Author Name Unknown Organization [facility] Address [address] [place] [address] Phone [phone] Care Team Providers Care [employer] Teacher Name Role Phone Daisha Lesa Lester DO Primary Care Provider Reason for Visit * Reason Comments eRx-Medication Refill Encounter Details Date Type Department Care Team (Late st Contact Info) Description 01/10/2023 Refill General Internal Medicine [facility] [address] [place] [address] Maris Sánchez MD [address] [place] [address] Bronchitis, complicated Allergies Active Allergy Reactions Criticality Noted Date Comments Mercury 05/10/2013 Shellfish Allergy Edema Other,Rash High 04/09/2014 Thimerosal (Thiomersal) 05/10/2013 Other reaction(s): swelling Mercurial Derivatives Edema Other 03/09/2006 Generalized body documented as of this encounter (statuses as of 01/10/2023) Medications Medication Sig Dispensed Refills Start Date [...] Base) MCG/ACT Inhalation Aerosol SolutionIndicatio ns:Bronchitis, complicated INHALE BY MOUTH 2 PUFFS EVERY 4 HOURS NEEDED FOR WHEEZING. 18 g 3 01/10/2023 Active ProAir HFA 108 (90 Base) MCG/ACT Inhalation Aerosol SolutionIndicatio ns:Bronchitis, complicated Inhale by mouth 2 Puffs every 4 hours as needed for Wheezing. 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 Overview: [facility] documented as of this encounter (statuses as of 01/10/2023) Resolved Problems Problem Noted Date Diagnosed Date Resolved Date Malnutrition of moderate degree 05/12/2020 10/23/2021 documented as of this encounter (statuses as of 01/10/2023) Immunizations Name Administration Dates Next Due COVID-19 mRNA, LNP-s, No Pre serve, 2-Dose Series (Seat 14A) 07/10/2021,11/06/2020,03/28/2020,03/07 COVID-19, LNP-s, No Preserve , Kenny-sucrose, Ages 12+ (Pfizer) 06/09/2021 COVID-19, MRNA-LNP, 23-24, P F, 30 MCG/0.3 mL, 12 YRS AND ABOVE, IM (PFIZER-Comirnaty) 11/21/2022 Pneumococcal Conjugate Vacci ne, 20-valent ([email or web address]) 11/15/2022 Pneumococcal Polysaccharide PPV23 (Pneumovax) 08/14/2012 SEASONAL INFLUENZA, PF, 6 M & Above, IM , (FLULAVAL or FLUZONE) 10/16/2019,12/08/2018,02/15/2018,03/16 Seasonal Influenza, Quadriva lent Hd (Fluzone [...] encounter Miscellaneous Notes * Telephone Encounter - Patricio Melgar RPh - 01/10/2023 9:19 PM ESTSigned Prescriptions: Disp Refills Ventolin HFA 108 (90 Base) MCG/ACT Inhalat*18 g 3 Sig: INHALE BY MOUTH 2 PUFFS EVERY 4 HOURS NEEDED FOR WHEEZING.Authorizing Provider: LESA ASHTON User: PATRICIO MELGAR documented in this encounter Plan of Treatment [...] D LEVEL ONCE IN A LIFETIME-USE SMARTSET# [id number] Completed 05/03/2013 Pap Smear Discontinued 05/31/2017, 11/07, [...] as of this encounter Visit Diagnoses Diagnosis Bronchitis, complicated Bronchitis, not specified as acute or chronic documented in this encounter Care Teams [employer] Teacher Relationship Specialty Start Date End Date Lesa Ashton DO [address] [place] [address] PCP - General Family Medicine 02/15/18 documented as of this encounter
--- OUTSIDE RECORDS SUMMARY | 2023-05-26 21:34 | External Medical Summary | Summary of Care ---
Author Name Unknown Organization [facility] Address [address] [place] [address] Phone [phone] Care Team Providers Care Front Worker Name Role Phone Daisha Lesa Lester DO Primary Care Provider Reason for Visit * Reason Comments Acute Cough, congestion, h eadache, sweats-symptoms started Monday, worse by Monday Encounter Details Date Type Department Care Team (Late st Contact Info) Description 05/24/2023 9:40 AM EDT Office Visit Family Practice [facility] [place] [address] [facility] [place] [address] Fabienne Emanuel PA-C [address] [facility] [place] [address] Bronchitis, complicated*; Acute right-sided low back pain with right-sided sciatica Allergies Active Allergy Reactions Criticality Noted Date Comments Mercury 05/10/2013 Shellfish Allergy Edema Other,Rash High 04/09/2014 Thimerosal (Thiomersal) 05/10/2013 Other reaction(s): swelling Mercurial Derivatives Edema Other 03/09/2006 Generalized body documented as of this encounter (statuses as of 05/24/2023) Medications Medication Sig Dispensed Refills Start Date End Date Status WOMENS MULTIVITAMIN PLUS PO TABS 1 daily 0 Active Calcium Carb-Cholecalcifer ol 1000-800 MG-UNIT Oral Tablet 3 daily 0 [...] TABLET DAILY 90 Tab 3 10/24/2019 Active Timolol Maleate 0.5 % Ophthalmic Solution (Timoptic) INSTILL 1 DROP INTO AFFECTED EYE(S) ONCE DAILY IN THE MORNING 0 07/15/2020 Active Oxymetazoline HCl 0.05 % Nasal SolutionIndication s:Dysfunction of Eustachian tube, left,Nasal sinus congestion Administer 2 Sprays into each nostril 2 times a day as needed for Congestion (for congestion). Do not use for more than three days. 15 mL 0 03/04/2022 Active Additional Information Patient not taking.Reported on 05/24/2023 medroxyPROGESTERon e Acetate 2.5 MG Oral Tablet (Provera)Indicatio ns:Menopause,Hot flashes Take 1 Tablet by mouth in the morning. 90 Tablet 4 06/14/2022 Active Additional Information Patient not taking.Reported on 05/24/2023 tiZANidine HCl 2 MG Oral Tablet (Zanaflex)Indicati ons:Acute right-sided low back pain with left-sided sciatica Take 1 Tablet by mouth every 8 hours as needed for Muscle spasms. 30 Tablet 0 06/16/2022 Active Fluticasone Propionate 50 MCG/ACT Nasal Suspension (Flonase)Indicatio ns:Tinnitus of left ear,Dysfunction of left eustachian tube Administer 2 Sprays into each nostril in the morning. 16 g 2 08/26/2022 Active LORazepam 0.5 MG Oral Tablet (Ativan)Indication s:Anxiety about health Take 1 Tablet by mouth every 6 hours as needed for Anxiety. 10 Tablet 0 10/25/2022 Active Ibuprofen 600 MG Oral Tablet (Motrin) Take 1 Tablet by mouth in the morning and 1 Tablet at noon and 1 Tablet before bedtime. With meals.. 30 Tablet 0 11/03/2022 Active Estradiol 0.5 MG Oral Tablet (Estrace) Take 1 Tablet by mouth in the morning. Every other day take 2 tablets by mouth in the morning. 60 Tablet 6 05/03/2023 Active Ventolin HFA 108 (90 Base) MCG/ACT Inhalation Aerosol SolutionIndication s:Bronchitis, complicated INHALE BY MOUTH 2 PUFFS EVERY 4 HOURS NEEDED FOR WHEEZING. 18 g 3 05/24/2023 Active Azithromycin 250 MG Oral Tablet (Zithromax) Take 2 tabs by mouth on the first day, then 1 tab daily on days two through five 6 Tablet 0 05/24/2023 4 Active predniSONE 10 MG Oral Tablet (Deltasone)Indicat ions:Acute right-sided low back pain with right-sided sciatica Take 5 tabs for 2 days, 4 tabs for 2 days, 3 tabs for 2 days, 2 tabs for 2 days 1 tab for 2 days 30 Tablet 0 05/24/2023 Active Ventolin HFA 108 (90 Base) MCG/ACT Inhalation Aerosol SolutionIndication s:Bronchitis, complicated INHALE BY MOUTH 2 PUFFS EVERY 4 HOURS NEEDED FOR WHEEZING. 18 g 3 01/10/2023 4 Discontinue d(Refill) Hospital, Clinic, or Other Facility Administered Medication Ordered Dose Route Frequency Start Date End Date Status albuterol-ipratropium (Duoneb) inhalation solution 3 mLIndications:Bronchiti s, complicated 3 mL NEBULIZER ONCE 05/24/2023 05/24/2023 Ended documented as of this encounter (statuses as of 05/24/2023) Active Problems Problem Noted Date Diagnosed Date Primary osteoarthritis of both hands 10/10/2017 Chronic left shoulder pain 09/08/2017 Other osteoporosis without current pathological fracture 04/19/2007 Overview: ICD-10 update of inactive term Generalized osteoarthritis Overview: wrists and ankles 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 Overview: At [facility] documented as of this encounter (statuses as of 05/24/2023) Resolved Problems Problem Noted Date Diagnosed Date Resolved Date Malnutrition of moderate degree 05/12/2020 10/23/2021 documented as of this encounter (statuses as of 05/24/2023) Immunizations Name Administration Dates Next Due COVID-19 mRNA, LNP-s, No Pre serve, 2-Dose Series ([employer]) 07/10/2021,11/06/2020,03/28/2020,03/07 COVID-19, LNP-s, No Preserve , Kenny-sucrose, Ages 12+ (Pfizer) 06/09/2021 COVID-19, MRNA-LNP, 23-24, P F, 30 MCG/0.3 mL, 12 YRS AND ABOVE, IM (PFIZER-Comirnaty) 11/21/2022 Pneumococcal Conjugate Vacci ne, 20-valent ([id number]) 11/15/2022 Pneumococcal Polysaccharide PPV23 (Pneumovax) 08/14/2012 Seasonal [...] Used Date Smoking Tobacco: Every Day Cigarettes Smokeless Tobacco: Never Alcohol Use Standard Drinks/Week [...] on file documented as of this encounter Last Filed Vital Signs Vital Sign Reading Time Taken Comments Blood Pressure 118/80 05/24/2023 9:43 AM EDT Pulse 99 05/24/2023 9:43 AM EDT Temperature 36.6 C (97.9 F) 05/24/2023 9:43 AM ED T Respiratory Rate 18 05/24/2023 9:43 AM EDT Oxygen Saturation 93% 05/24/2023 10:31 AM EDT Inhaled Oxygen Concentration - - Weight - - Height - - Body Mass Index - - documented in this encounter Progress Notes * Fabienne Emanuel PA-C - 05/24/2023 9:59 AM EDT Images from the original note were not included. History of Present Illness Valeria Jimenez is a 68 year old female that presents for Acute (Cough, congestion, headache, sweats-symptoms started Monday, worse by Monday ) Patient is a 68 year old female who presents with respiratory symptoms of 6 days duration. She noteshe has been having fever and chills.left ear discomfort, headache, nasal congestion, pn drip, chest tight, cough/dry, wheezing, sob Tried claritin, tylenol, ibuprofen Smoker. Non in 24 hours. Physical Exam Vitals: 05/24/23 0943 Temp: 36.6 C (97.9 F) Pulse: 99 Resp: 18 SpO2: 91% BP: 118/80 BP Readings from Last 3 Encounters: 05/24/23 118/80 11/21/22 126/84 11/15/22 110/68 Wt Readings from Last 3 Encounters: 11/21/22 41.7 kg (92 lb) 11/15/22 42.7 kg (94 lb 1.9 oz) 11/03/22 40.8 kg (89 lb 15.2 oz) General: alert, no distress, well nourished, well developed, cooperative, and ill looking Head: Normocephalic, No masses, lesions, tenderness or abnormalities Eye Exam: PERRLA, extraocular movements intact, conjunctiva are pink and non- injected, sclera clear Ears: External ears normal, Canals clear, R TM dull and erythematous, L TM dull and erythematous Nose: no mucosal erythema, no mucosal edema, no purulent discharge Oropharynx: no exudate, lips, buccal mucosa, and tongue normal, mucous membranes are moist, mild erythema, and post nasal drip Neck: supple, no adenopathy, no bruits, thyroid normal size, non-tender, without nodularity Heart: regular rate & rhythm, no murmur, and no gallops Lungs: chest symmetric with normal AP diameter, no chest deformities noted, normal respiratory rateand rhythm, no chest wall tenderness, diaphragmatic excursion normal, coarse sounds heard, prolonged expiratory phase I have reviewed the following results: None Assessment and Plan Bronchitis, complicated (Primary) - Ventolin HFA 108 (90 Base) MCG/ACT Inhalation Aerosol Solution; INHALE BY MOUTH 2 PUFFS EVERY 4 HOURS NEEDED FOR WHEEZING. - XR CHEST 2 VIEWS; Future; Expected date: 05/24/2023 - NEBULIZER TREATMENTS - albuterol-ipratropium (Duoneb) inhalation solution 3 mL Acute right-sided low back pain with right-sided sciatica - predniSONE 10 MG Oral Tablet (Deltasone); Take 5 tabs for 2 days, 4 tabs for 2 days, 3 tabs for 2days, 2 tabs for 2 days 1 tab for 2 days Other orders - Azithromycin 250 MG Oral Tablet (Zithromax); Take 2 tabs by mouth on the first day, then 1 tab daily on days two through five Wrap-Up Time: I spent a total of 20-29 minutes (exact time 24 mins) on the date of service in preparation, delivery, and documentation of the care provided to Valeria Jimenez excluding any time spent in the performance of separately billed services. documented in this encounter Nursing Notes * Stacie Ascencio LPN - 05/24/2023 9:43 AM EDT The patient has been properly identified by confirmation of name and date of . Chief Complaint Patient presents with Acute Cough, congestion, headache, sweats-symptoms started Monday, worse by Monday documented in this encounter Plan of Treatment Upcoming Encounters Date Type Department Care Team (Late st Contact Info) Description 06/05/2023 2:00 PM EDT Office Visit Audiology [facility] [address] [place] [address] Eulalia Garcia Au.D. [address] [place] [address] 06/05/2023 3:15 PM EDT Office Visit Gynecology/Obstetrics [facility] [address] [place] [address] Tylor Georges MD [address] [place] [address] Scheduled Orders Name Type Priority Associated Diagnoses Orde r Schedule XR CHEST 2 VIEWS Medical Imaging STAT Bronchitis, complicated Expected: 05/24/2023, Expires: 06/22/2024 NEBULIZER TREATMENTS Procedures Routine Bronchitis, complicated Ordered: 05/24/2023 Scheduled Procedures Name Priority Associated Diagnoses Date/Ti [...] D LEVEL ONCE IN A LIFETIME-USE SMARTSET# [id number] Completed 05/03/2013 Pap Smear Discontinued 05/31/2017, 11/07, [...] of this encounter Visit Diagnoses Diagnosis Bronchitis, complicated- Primary Bronchitis, not specified as acute or chronic Acute right-sided low back pain with right-sided sciatica documented in this encounter Administered Medications Inactive Administered Medications - up to 3 most recent administrations Medication Order MAR Action Action Date Dose Rate Site albuterol-ipratropium (Duoneb) inhalation solution 3 mL 3 mL, Nebulizer, ONCE, On Mon05/24/23 at 1045, For 1 dose, 3 mL = 0.5 mg ipratropium/ 2.5 mg albuterol Given 05/24/2023 10:18 AM EDT 3 mL documented in this encounter Care Teams Front Worker Relationship Specialty Start Date End Date Lesa Ashton DO [address] [place] [address] PCP - General Family Medicine 02/15/18 documented as of this encounter
--- OUTSIDE RECORDS SUMMARY | 2023-05-26 21:34 | External Medical Summary | Summary of Care ---
Author Name Unknown Organization [facility] Address [address] [place] [address] Phone [phone] Care Team Providers Care Applications Engineering Manager Name Role Phone Daisha Mcfaddenmayra Lester Primary Care Provider Reason for Visit * Reason Onset Date Comments Advice 12/07/[address] Georges Encounter Details Date Type Department Care Team ([facility] Contact Info) Description 12/07/2022 Telephone Gynecology/Obstetrics [facility] [address] [place] [address] Tylor Georges MD [address] [place] [address] Advice (Review with Dr. Georges) Allergies Active Allergy Reactions Criticality Noted Date Comments Mercury 05/10/2013 Shellfish Allergy Edema Other,Rash High 04/09/2014 Thimerosal (Thiomersal) 05/10/2013 Other reaction(s): swelling Mercurial Derivatives Edema Other 03/09/2006 Generalized body documented as of this encounter (statuses as of 01/18/2023) Medications Medication Sig Dispensed Refills Start Date [...] as of this encounter (statuses as of 01/18/2023) Active Problems Problem Noted Date Diagnosed Date Primary osteoarthritis of both hands 10/10/2017 Chronic left shoulder pain 09/08/2017 Other osteoporosis without current pathological fracture 04/19/2007 Overview: ICD-10 update of inactive term Generalized osteoarthritis Overview: wrists and ankles 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 Overview: At [facility] documented as of this encounter (statuses as of 01/18/2023) Resolved Problems Problem Noted Date Diagnosed Date Resolved Date Malnutrition of moderate degree 05/12/2020 10/23/2021 documented as of this encounter (statuses as of 01/18/2023) Immunizations Name Administration Dates Next Due COVID-19 mRNA, LNP-s, No Pre serve, 2-Dose Series ([employer]) 07/10/2021,11/06/2020,03/28/2020,03/07 COVID-19, LNP-s, No Preserve , Kenny-sucrose, Ages 12+ (Pfizer) 06/09/2021 COVID-19, MRNA-LNP, 23-24, P F, 30 MCG/0.3 mL, 12 YRS AND ABOVE, IM (PFIZER-Comirnaty) 11/21/2022 Pneumococcal Conjugate Vacci ne, 20-valent ([id number]) 11/15/2022 Pneumococcal Polysaccharide PPV23 (Pneumovax) 08/14/2012 Seasonal [...] encounter Miscellaneous Notes * Telephone Encounter - Salma Maier PA-C - 01/18/2023 10:53 AM EST Covering for Dr. Geogres. Chart reviewed, addressed in separate encounter from 01/03/2023. Please seeencounters. * Telephone Encounter - Charu Alberto LPN - 12/07/2022 11:56 AM EDT Reviewed with Dr. Brooks who advised pt be seen with Dr. Georges next week when he is back in office. Bleeding precautions reviewed with pt. Advised pt to call with any changes/new symptoms or be evaluated in ER with worsening bleeding/pain. Pt verbalized understanding. * Telephone Encounter - Charu Alberto LPN - 12/07/2022 8:11 AM EDT Pt calling in stating that she had D&C with Dr. Georges 11/03/22. She stats ongoing spotting sinceprocedure. She woke up this morning with cramping and period like bleeding. Denies changing pad in hour or less. Advised we consider heavy bleeding changing a pad in a hour or less for more than a couple hours. Pt states she is not saturating a pad but changes frequently for hygiene reasons. Will review with Dr. Georges. documented in this encounter Plan of Treatment [...] D LEVEL ONCE IN A LIFETIME-USE SMARTSET# [id number] Completed 05/03/2013 Pap Smear Discontinued 05/31/2017, 11/07, [...] filedocumented as of this encounter Care Teams Applications Engineering Manager Relationship Specialty Start Date End Date Lesa Ashton DO [address] [place] [address] PCP - General Family Medicine 02/15/18 documented as of this encounter
--- OUTSIDE RECORDS SUMMARY | 2023-05-26 21:34 | External Medical Summary | Summary of Care ---
Author Name Unknown Organization [facility] Address [address] [place] [address] Phone [phone] Care Team Providers Care Retail Property Manager Name Role Phone Daisha Lesa Lester DO Primary Care Provider Reason for Visit * Reason Comments Acute Cough, congestion, h eadache, sweats-symptoms started Monday, worse by Monday Encounter Details Date Type Department Care Team (Late st Contact Info) Description 05/24/2023 9:40 AM EDT Office Visit Family Practice [facility] [address] [facility] [place] [address] Fabienne Emanuel PA-C [address] [facility] [place] [address] Bronchitis, complicated*; Acute right-sided low back pain [...] mRNA, LNP-s, No Pre serve, 2-Dose Series ([facility]) 07/10/2021,11/06/2020,03/28/2020,03/07 COVID-19, LNP-s, No Preserve , Kenny-sucrose, Ages 12+ (Pfizer) 06/09/2021 COVID-19, MRNA-LNP, 23-24, P F, 30 MCG/0.3 mL, 12 YRS AND ABOVE, IM (PFIZER-Comirnaty) 11/21/2022 Pneumococcal Conjugate Vacci ne, 20-valent ([id number]) 11/15/2022 Pneumococcal Polysaccharide PPV23 (Pneumovax) 08/14/2012 Seasonal [...] 18 05/24/2023 9:43 AM EDT Oxygen Saturation 91% 05/24/2023 9:43 AM EDT Inhaled Oxygen Concentration - - [...] documented in this encounter Nursing Notes * Staice Ascencio LPN - 05/24/2023 9:43 AM EDT The patient has been properly identified by confirmation of name and date of . Chief Complaint Patient presents with Acute Cough, congestion, headache, sweats-symptoms started Monday, worse by Monday documented in this encounter Plan of Treatment Upcoming Encounters Date Type Department Care Team (Late st Contact Info) Description 06/05/2023 2:00 PM EDT Office Visit Audiology [facility] [address] [place] [address] Eulalia Garcia Au.D. [address] [place] [address] 06/05/2023 3:15 PM EDT Office Visit Gynecology/Obstetrics [facility] [address] [place] [address] Tylor Georges MD [address] [place] [address] Scheduled Orders Name Type Priority Associated Diagnoses [...] D LEVEL ONCE IN A LIFETIME-USE SMARTSET# [id number] Completed 05/03/2013 Pap Smear Discontinued 05/31/2017, 11/07, [...] mL documented in this encounter Care Teams Retail Property Manager Relationship Specialty Start Date End Date Lesa Ashton DO [address] [place] [address] PCP - General Family Medicine 02/15/18 documented as of this encounter
--- OUTSIDE RECORDS SUMMARY | 2023-05-26 21:34 | External Medical Summary | Summary of Care ---
Author Name Unknown Organization [facility] Address [address] [place] [address] Phone [phone] Care Team Providers Care Review Appraiser Name Role Phone Daisha Lesa Lester DO Primary Care Provider Reason for Visit * Reason Comments Acute Cough, congestion, h eadache, sweats-symptoms started Monday, worse by Monday Encounter Details Date Type Department Care Team (Late st Contact Info) Description 05/24/2023 9:40 AM EDT Office Visit Family Practice [facility] [place] [address] [facility] [place] [address] Fabienne Emanuel PA-C [address] [facility] [place] [address] Bronchitis, complicated*; Acute right-sided low back pain [...] mRNA, LNP-s, No Pre serve, 2-Dose Series ([employer]) 07/10/2021,11/06/2020,03/28/2020,03/07 COVID-19, LNP-s, No Preserve , Kenny-sucrose, Ages 12+ ([employer]) 06/09/2021 COVID-19, MRNA-LNP, 23-24, P F, 30 MCG/0.3 mL, 12 YRS AND ABOVE, IM (PFIZER-Comirnaty) 11/21/2022 Pneumococcal Conjugate Vacci ne, 20-valent ([id number]) 11/15/2022 Pneumococcal Polysaccharide PPV23 (Pneumovax) 08/14/2012 Seasonal [...] 06/05/2023 2:00 PM EDT Office Visit Audiology [facility] [address] [place] [address] Eulalia Garcia Au.D. [address] [place] [address] 06/05/2023 3:15 PM EDT Office Visit Gynecology/Obstetrics [facility] [address] [place] [address] Tylor Georges MD [address] [place] [address] Scheduled Orders Name Type Priority Associated Diagnoses [...] D LEVEL ONCE IN A LIFETIME-USE SMARTSET# [id number] Completed 05/03/2013 Pap Smear Discontinued 05/31/2017, 11/07, [...] mL documented in this encounter Care Teams Review Appraiser Relationship Specialty Start Date End Date Lesa Ashton DO [address] [place] [address] PCP - General Family Medicine 02/15/18 documented as of this encounter
--- OUTSIDE RECORDS SUMMARY | 2023-05-26 21:34 | External Medical Summary | Summary of Care ---
Author Name Unknown Organization [facility] Address [address] [place] [address] Phone [phone] Care Team Providers Care Lighting Designer Name Role Phone Daisha Lesa Lester DO Primary Care Provider Encounter Details Date Type Department Care Team (Late st Contact Info) Description 05/16/2023 Telephone Gynecology/Obstetrics [facility] [address] [place] [address] Tylor Georges MD [address] [place] [address] Allergies Active Allergy Reactions Criticality Noted Date Comments Mercury 05/10/2013 Shellfish Allergy Edema Other,Rash High 04/09/2014 Thimerosal (Thiomersal) 05/10/2013 Other reaction(s): swelling Mercurial Derivatives Edema Other 03/09/2006 Generalized body documented as of this encounter (statuses as of 05/16/2023) Medications Medication Sig Dispensed Refills Start Date [...] FOR WHEEZING. 18 g 3 01/10/2023 Active Estradiol 0.5 MG Oral Tablet (Estrace) Take 1 Tablet by mouth in the morning. Every other day take 2 tablets by mouth in the morning. 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 Overview: At [facility] documented as of this encounter (statuses as of 05/16/2023) Resolved Problems Problem Noted Date Diagnosed Date Resolved Date Malnutrition of moderate degree 05/12/2020 10/23/2021 documented as of this encounter (statuses as of 05/16/2023) Immunizations Name Administration Dates Next Due COVID-19 mRNA, LNP-s, No Pre serve, 2-Dose Series ([employer]) 07/10/2021,11/06/2020,03/28/2020,03/07 COVID-19, LNP-s, No Preserve , Kenny-sucrose, Ages 12+ ([employer]) 06/09/2021 COVID-19, MRNA-LNP, 23-24, P F, 30 MCG/0.3 mL, 12 YRS AND ABOVE, IM (PFIZER-Comirnaty) 11/21/2022 Pneumococcal Conjugate Vacci ne, 20-valent ([id number]) 11/15/2022 Pneumococcal Polysaccharide PPV23 (Pneumovax) 08/14/2012 Seasonal [...] encounter Miscellaneous Notes * Telephone Encounter - Evette Dickson RN - 05/16/2023 9:56 AM EDT Patient reviewed with Dr. Georges. Per Dr. Georges, He would like the patient to follow up at her appointment on 06/04. Called patient and made her aware. She verbalized understanding. * Telephone Encounter - Sheila Marcos LPN - 05/16/2023 9:08 AM EDT Patient called in stating since her D&C on 11/03/22 she has had daily spotting requiring only a panty liner. Final Diagnosis A. Endometrial polyp resection with myosure: Endometrial polyp with tiny foci of glandular crowding. Weakly proliferative endometrium with focal surface reactive changes. B. Sharp endometrial curettings: Small amount of stroma and rare inactive endometrial epithelium. She is currently on Estrace 0.5mg oral tablet daily and Provera 2.5mg tablet daily. Wondering if adjusting any these meds could improve the daily spotting. She does have an appointment on 06/05/23. documented in this encounter Plan of Treatment Upcoming Encounters Date Type Department Care Team (Late st Contact Info) Description 06/05/2023 2:00 PM EDT Office Visit Audiology [facility] [address] [place] [address] Eulalia Garcia Au.D. [address] [place] [address] 06/05/2023 3:15 PM EDT Office Visit Gynecology/Obstetrics [facility] [address] [place] [address] Tylor Georges MD [address] [place] [address] Scheduled Procedures Name Priority Associated Diagnoses Date/Ti [...] D LEVEL ONCE IN A LIFETIME-USE SMARTSET# [id number] Completed 05/03/2013 Pap Smear Discontinued 05/31/2017, 11/07, [...] filedocumented as of this encounter Care Teams Lighting Designer Relationship Specialty Start Date End Date Lesa Ashton DO [address] [place] [address] PCP - General Family Medicine 02/15/18 documented as of this encounter
--- OUTSIDE RECORDS SUMMARY | 2023-05-26 21:34 | External Medical Summary | Summary of Care ---
Author Name Unknown Organization [facility] Address [address] [place] [address] Phone [phone] Care Team Providers Care Is/It Project Manager Name Role Phone Lesa Ashton DO Primary Care Provider Reason for Visit * Reason Onset Date Comments Health Maintenance 04/20/2023 Encounter Details Date Type Department Care Team (Late st Contact Info) Description 04/20/2023 Telephone Family Practice [facility] [address] [place] [address] Lesa Ashton DO [address] [place] [address] Health Maintenance Allergies Active Allergy Reactions Criticality Noted Date Comments Mercury 05/10/2013 Shellfish Allergy Edema Other,Rash High 04/09/2014 Thimerosal (Thiomersal) 05/10/2013 Other reaction(s): swelling Mercurial Derivatives Edema Other 03/09/2006 Generalized body documented as of this encounter (statuses as of 04/20/2023) Medications Medication Sig Dispensed Refills Start Date [...] as of this encounter (statuses as of 04/20/2023) Active Problems Problem Noted Date Diagnosed Date Primary osteoarthritis of both hands 10/10/2017 Chronic left shoulder pain 09/08/2017 Other osteoporosis without current pathological fracture 04/19/2007 Overview: ICD-10 update of inactive term Generalized osteoarthritis Overview: wrists and ankles 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 Overview: At [facility] documented as of this encounter (statuses as of 04/20/2023) Resolved Problems Problem Noted Date Diagnosed Date Resolved Date Malnutrition of moderate degree 05/12/2020 10/23/2021 documented as of this encounter (statuses as of 04/20/2023) Immunizations Name Administration Dates Next Due COVID-19 mRNA, LNP-s, No Pre serve, 2-Dose Series ([employer]) 07/10/2021,11/06/2020,03/28/2020,03/07 COVID-19, LNP-s, No Preserve , Kenny-sucrose, Ages 12+ (Pfizer) 06/09/2021 COVID-19, MRNA-LNP, 23-24, P F, 30 MCG/0.3 mL, 12 YRS AND ABOVE, IM (PFIZER-Comirnaty) 11/21/2022 Pneumococcal Conjugate Vacci ne, 20-valent ([id number]) 11/15/2022 Pneumococcal Polysaccharide PPV23 (Pneumovax) 08/14/2012 Seasonal [...] encounter Miscellaneous Notes * Telephone Encounter - Didi Mukherjee LPN - 04/20/2023 8:55 AM EDT Care Gaps Comprehensive Care Outreach Last Office/Telemedicine Visit: 11/15/2022 (in office), 08/01/2019 (telemedicine) Next Office Visit: Visit date not found Hemoglobin AIC Results: No results found for: "HEMOGLOBIN A1C" BP Readings from Last 1 Encounters: 11/21/22 126/84 Reviewed Health Maintenance below: Health Maintenance Topic Date Due Zoster Vaccines (1 of 2) Never done Depression Screening 03/20/2019 COLONOSCOPY-EVERY 5 YRS AGES 18-100 12/22/2020 *BISPHONATE OR OTHER ACCEPTABLE MEDICATION NEEDED FOR OSTEOPOROSIS (REFER TO SMARTSET #1146) Never done Lipid Panel 02/20/2023 Mammogram 08/31/2023 [facility] Mamm Nani colon Care Gap Outreach Action Taken: unable to reach vm full documented in this encounter Plan of Treatment Upcoming Encounters Date Type Department Care Team (Late st Contact Info) Description 06/05/2023 2:00 PM EDT Office Visit Audiology [facility] [address] [address] Eulalia Garcia Au.D. [address] [place] [address] Scheduled Procedures Name Priority Associated Diagnoses Date/Ti [...] D LEVEL ONCE IN A LIFETIME-USE SMARTSET# [id number] Completed 05/03/2013 Pap Smear Discontinued 05/31/2017, 11/07, [...] filedocumented as of this encounter Care Teams Is/It Project Manager Relationship Specialty Start Date End Date Lesa Ashton DO [address] [place] [address] PCP - General Family Medicine 02/15/18 documented as of this encounter
--- OUTSIDE RECORDS SUMMARY | 2023-05-26 21:34 | External Medical Summary | Summary of Care ---
Author Name Unknown Organization [facility] Address [address] [place] [address] Phone [phone] Care Team Providers Care Aircraft Accessories Mechanic Name Role Phone Daisha Mcfaddenmayra Lester Primary Care Provider Reason for Visit * Reason Onset Date Comments Medication Refill 05/03/2023 Encounter Details Date Type Department Care Team (Late st Contact Info) Description 05/03/2023 Refill Gynecology/Obstetrics [facility] [address] [facility] [place] [address] Azalia Gao MD [address] [facility] [place] [address] Allergies Active Allergy Reactions Criticality Noted Date Comments Mercury 05/10/2013 Shellfish Allergy Edema Other,Rash High 04/09/2014 Thimerosal (Thiomersal) 05/10/2013 Other reaction(s): swelling Mercurial Derivatives Edema Other 03/09/2006 Generalized body documented as of this encounter (statuses as of 05/03/2023) Medications Medication Sig Dispensed Refills Start Date [...] three days. 15 mL 0 03/04/2022 Active medroxyPROGESTERon e Acetate 2.5 MG Oral Tablet (Provera)Indicatio ns:Menopause,Hot flashes Take 1 Tablet by mouth in the morning. 90 Tablet 4 06/14/2022 Active tiZANidine HCl 2 MG Oral Tablet (Zanaflex)Indicati [...] the morning. 60 Tablet 6 05/03/2023 Active Estradiol 0.5 MG Oral Tablet (Estrace) Take 1 Tablet by mouth in the morning. Every other day take 2 tablets by mouth in the morning. 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 Overview: [facility] [place] documented as of this encounter (statuses as of 05/03/2023) Resolved Problems Problem Noted Date Diagnosed Date Resolved Date Malnutrition of moderate degree 05/12/2020 10/23/2021 documented as of this encounter (statuses as of 05/03/2023) Immunizations Name Administration Dates Next Due COVID-19 mRNA, LNP-s, No Pre serve, 2-Dose Series ([employer]) 07/10/2021,11/06/2020,03/28/2020,03/07 COVID-19, LNP-s, No Preserve , Kenny-sucrose, Ages 12+ (Pfizer) 06/09/2021 COVID-19, MRNA-LNP, 23-24, P F, 30 MCG/0.3 mL, 12 YRS AND ABOVE, IM (PFIZER-Comirnat) 11/21/2022 Pneumococcal Conjugate Vacci ne, 20-valent ([id number]) 11/15/2022 Pneumococcal Polysaccharide PPV23 (Pneumovax) 08/14/2012 Seasonal [...] encounter Miscellaneous Notes * Telephone Encounter - Fernandez Barajas MD - 05/03/2023 4:50 PM EDTSigned Prescriptions: Disp Refills Estradiol 0.5 MG Oral Tablet (Estrace) 60 Tab*6 Sig: Take 1 Tablet by mouth in the morning. Every other day take 2 tablets by mouth in the morning.Authorizing Provider: FERNANDEZ BARAJAS * Telephone Encounter - Evette Dickson RN - 05/03/2023 2:28 PM EDT Patient calling in states that she is out of estrace prescription and needs refilled. Was refused by another provider yesterday. Patient asking if someone can send in her prescription since Dr. Joseph out of office. Patient has an upcoming appt in May. Please advise. Pended refill. documented in this encounter Plan of Treatment Upcoming Encounters Date Type Department Care Team (Late st Contact Info) Description 06/05/2023 2:00 PM EDT Office Visit Audiology [address] [place] [address] Eulalia Garcia Au.D. [address] [place] [address] 06/05/2023 3:15 PM EDT Office Visit Gynecology/Obstetrics Demetra Nicole [address] [place] [address] Tylor Georges MD [address] [place] [address] Scheduled Procedures Name Priority Associated Diagnoses Date/Ti [...] D LEVEL ONCE IN A LIFETIME-USE SMARTSET# [id number] Completed 05/03/2013 Pap Smear Discontinued 05/31/2017, 11/07, [...] filedocumented as of this encounter Care Teams Aircraft Accessories Mechanic Relationship Specialty Start Date End Date Lesa Ashton DO [address] [place] [address] PCP - General Family Medicine 02/15/18 documented as of this encounter
--- OUTSIDE RECORDS SUMMARY | 2023-05-26 21:35 | External Medical Summary | Summary of Care ---
Author Name Unknown Organization [facility] Address [address] [place] [address] Phone [phone] Care Team Providers Care Rotary Driller Prospecting Name Role Phone Lesa Ashton DO Primary Care Provider Reason for Visit * Reason Onset Date Comments Advice 11/25/2022 Encounter Details Date Type Department Care Team (Late st Contact Info) Description 11/25/2022 Telephone Family Practice [facility] 200 [place] [address] Fabienne Emanuel PA-C 200 [place] [address] Advice Allergies Active Allergy Reactions Criticality Noted Date Comments Mercury 05/10/2013 Shellfish Allergy Edema Other,Rash High 04/09/2014 Thimerosal (Thiomersal) 05/10/2013 Other reaction(s): swelling Mercurial Derivatives Edema Other 03/09/2006 Generalized body documented as of this encounter (statuses as of 12/02/2022) Medications Medication Sig Dispensed Refills Start Date [...] DAILY IN THE MORNING 0 07/15/2020 Active ProAir HFA 108 (90 Base) MCG/ACT Inhalation Aerosol SolutionIndications: Bronchitis, complicated Inhale by mouth 2 Puffs every 4 hours as needed for Wheezing. 18 g 3 10/23/2021 Active Oxymetazoline HCl 0.05 % Nasal SolutionIndications: [...] With meals.. 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 Overview: [place] documented as of this encounter (statuses as of 12/02/2022) Resolved Problems Problem Noted Date Diagnosed Date Resolved Date Malnutrition of moderate degree 05/12/2020 10/23/2021 documented as of this encounter (statuses as of 12/02/2022) Immunizations Name Administration Dates Next Due COVID-19 mRNA, LNP-s, No Pre serve, 2-Dose Series ([employer]) 07/10/2021,11/06/2020,03/28/2020,03/07 COVID-19, LNP-s, No Preserve , Kenny-sucrose, Ages 12+ (Pfizer) 06/09/2021 COVID-19, MRNA-LNP, 23-24, P F, 30 MCG/0.3 mL, 12 YRS AND ABOVE, IM (PFIZER-Comirnaty) 11/21/2022 Pneumococcal Conjugate Vacci ne, 20-valent ([id number]) 11/15/2022 Pneumococcal Polysaccharide PPV23 (Pneumovax) 08/14/2012 SEASONAL [...] Encounter - Mitali Pena LPN - 12/02/2022 4:17 PM EDT Patient aware and verbalized understanding, will comply * Telephone Encounter - Thao Moon LPN - 11/28/2022 3:06 PM EDT See ongoing TE from 11/15/22 * Telephone Encounter - Adilson Diaz DO - 11/25/2022 3:06 PM EDT Please call patient: Unfortunately there is no cure for tinnitus. Neither ear nose and throat or wehave a fix for her. * Telephone Encounter - Sugar Diaz OSA - 11/25/2022 1:51 PM EDT 1. When were you seen for this problem? 11/15/22 2. What provider did you see for this problem? May Madelyn 3. What medications are you presently taking? None 4. What is it that is no better? Please refer to Call Details. documented in this encounter Plan of Treatment [...] Panel 02/20/2023 02/20/2018, 05/03/2013 Mammogram 08/31/2023 08/30/2022, 05/04/2017, 09/09/2015, Additional history exists DXA Scan 08/30/2024 08/30/2022, 02/07, 03/06/2012, Additional history exists VITAMIN D LEVEL ONCE IN A LIFETIME-USE SMARTSET# [id number] Completed 05/03/2013 Pap Smear Discontinued 05/31/2017, 11/07, [...] filedocumented as of this encounter Care Teams Rotary Driller Prospecting Relationship Specialty Start Date End Date Lesa Ashton DO [address] [place] [address] PCP - General Family Medicine 02/15/18 documented as of this encounter
--- OUTSIDE RECORDS SUMMARY | 2023-05-26 21:35 | External Medical Summary | Summary of Care ---
Author Name Unknown Organization [facility] Address [address] [place] [address] Phone [phone] Care Team Providers Care Drum Filler Name Role Phone Lesa Ashton DO Primary Care Provider Reason for Visit * Reason Onset Date Comments Advice 11/25/2022 Encounter Details Date Type Department Care Team (Late st Contact Info) Description 11/25/2022 Telephone Family Practice [facility] 200 [place] [address] Fabienne Emanuel PA-C 200 [place] [address] Advice Allergies Active Allergy Reactions Criticality Noted Date Comments Mercury 05/10/2013 Shellfish Allergy Edema Other,Rash High 04/09/2014 Thimerosal (Thiomersal) 05/10/2013 Other reaction(s): swelling Mercurial Derivatives Edema Other 03/09/2006 Generalized body documented as of this encounter (statuses as of 11/28/2022) Medications Medication Sig Dispensed Refills Start Date [...] as of this encounter (statuses as of 11/28/2022) Active Problems Problem Noted Date Diagnosed Date Primary osteoarthritis of both hands 10/10/2017 Chronic left shoulder pain 09/08/2017 Other osteoporosis without current pathological fracture 04/19/2007 Overview: ICD-10 update of inactive term Generalized osteoarthritis Overview: wrists and ankles 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 Overview: [place] documented as of this encounter (statuses as of 11/28/2022) Resolved Problems Problem Noted Date Diagnosed Date Resolved Date Malnutrition of moderate degree 05/12/2020 10/23/2021 documented as of this encounter (statuses as of 11/28/2022) Immunizations Name Administration Dates Next Due COVID-19 mRNA, LNP-s, No Pre serve, 2-Dose Series ([employer]) 07/10/2021,11/06/2020,03/28/2020,03/07 COVID-19, LNP-s, No Preserve , Kenny-sucrose, Ages 12+ (Pfizer) 06/09/2021 COVID-19, MRNA-LNP, 23-24, P F, 30 MCG/0.3 mL, 12 YRS AND ABOVE, IM (PFIZER-Comirnaty) 11/21/2022 Pneumococcal Conjugate Vacci ne, 20-valent ([id number]) 11/15/2022 Pneumococcal Polysaccharide PPV23 (Pneumovax) 08/14/2012 SEASONAL [...] encounter Miscellaneous Notes * Telephone Encounter - Thao Moon LPN - 11/28/2022 3:06 PM EDT See ongoing TE from 11/15/22 * Telephone Encounter - Adilson Diaz DO - 11/25/2022 3:06 PM EDT Please call patient: Unfortunately there is no cure for tinnitus. Neither ear nose and throat or wehave a fix for her. * Telephone Encounter - MIKE Maurer - 11/25/2022 1:51 PM EDT 1. When were you seen for this problem? 11/15/22 2. What provider did you see for this problem? Fabienne Emnauel 3. What medications are you presently taking? [...] D LEVEL ONCE IN A LIFETIME-USE SMARTSET# [id number] Completed 05/03/2013 Pap Smear Discontinued 05/31/2017, 11/07, [...] filedocumented as of this encounter Care Teams Drum Filler Relationship Specialty Start Date End Date Lesa Ashton DO [address] [place] [address] PCP - General Family Medicine 02/15/18 documented as of this encounter
--- OUTSIDE RECORDS SUMMARY | 2023-05-26 21:35 | External Medical Summary | Summary of Care ---
Author Name Unknown Organization [facility] Address [address] [place] [address] Phone [phone] Care Team Providers Care Merchandise Planner Name Role Phone Daisha Mcfaddenmayra Lester Primary Care Provider Reason for Visit * Reason Onset Date Comments Advice 12/07/[address] Georges Encounter Details Date Type Department Care Team ([facility] Contact Info) Description 12/07/2022 Telephone Gynecology/Obstetrics [facility] [address] [place] [address] Tylor Georges MD [address] [place] [address] Advice (Review with Dr. Georges) Allergies Active Allergy Reactions Criticality Noted Date Comments Mercury 05/10/2013 Shellfish Allergy Edema Other,Rash High 04/09/2014 Thimerosal (Thiomersal) 05/10/2013 Other reaction(s): swelling Mercurial Derivatives Edema Other 03/09/2006 Generalized body documented as of this encounter (statuses as of 12/07/2022) Medications Medication Sig Dispensed Refills Start Date [...] as of this encounter (statuses as of 12/07/2022) Active Problems Problem Noted Date Diagnosed Date Primary osteoarthritis of both hands 10/10/2017 Chronic left shoulder pain 09/08/2017 Other osteoporosis without current pathological fracture 04/19/2007 Overview: ICD-10 update of inactive term Generalized osteoarthritis Overview: wrists and ankles 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 Overview: [place] documented as of this encounter (statuses as of 12/07/2022) Resolved Problems Problem Noted Date Diagnosed Date Resolved Date Malnutrition of moderate degree 05/12/2020 10/23/2021 documented as of this encounter (statuses as of 12/07/2022) Immunizations Name Administration Dates Next Due COVID-19 mRNA, LNP-s, No Pre serve, 2-Dose Series ([employer]) 07/10/2021,11/06/2020,03/28/2020,03/07 COVID-19, LNP-s, No Preserve , Kenny-sucrose, Ages 12+ (Pfizer) 06/09/2021 COVID-19, MRNA-LNP, 23-24, P F, 30 MCG/0.3 mL, 12 YRS AND ABOVE, IM (PFIZER-Comirnaty) 11/21/2022 Pneumococcal Conjugate Vacci ne, 20-valent ([id number]) 11/15/2022 Pneumococcal Polysaccharide PPV23 (Pneumovax) 08/14/2012 SEASONAL [...] encounter Miscellaneous Notes * Telephone Encounter - Charu Alberto LPN - 12/07/2022 8:11 AM EDT Pt calling in stating that she had D&C with Dr. Georges 11/03/22. She stats ongoing spotting sinceprocedure. She woke up this morning with cramping and period like bleeding. Denies changing pad in hour or less. Will review with Dr. Georges. documented in [...] Panel 02/20/2023 02/20/2018, 05/03/2013 Mammogram 08/31/2023 08/30/2022, 05/0 04/2017, 09/09/2015, Additional history exists DXA Scan 08/30/2024 08/30/2022, 02/07, 03/06/2012, Additional history exists VITAMIN D LEVEL ONCE IN A LIFETIME-USE SMARTSET# [id number] Completed 05/03/2013 Pap Smear Discontinued 05/31/2017, 11/07, [...] filedocumented as of this encounter Care Teams Merchandise Planner Relationship Specialty Start Date End Date Lesa Ashton DO [address] [place] [address] PCP - General Family Medicine 02/15/18 documented as of this encounter
--- OUTSIDE RECORDS SUMMARY | 2023-05-26 21:35 | External Medical Summary | Summary of Care ---
Author Name Unknown Organization [facility] Address [address] [place] [address] Phone [phone] Care Team Providers Care Director Environmental Name Role Phone Daisha Mcfaddenmayra Lester Primary Care Provider Reason for Visit * Reason Onset Date Comments Advice 12/07/[address] Georges Encounter Details Date Type Department Care Team ([facility] Contact Info) Description 12/07/2022 Telephone Gynecology/Obstetrics [facility] [address] [place] [address] Tylor Georges MD [address] [place] [address] Advice (Review with Dr. Georges) Allergies Active [...] mRNA, LNP-s, No Pre serve, 2-Dose Series ([employer]) 07/10/2021,11/06/2020,03/28/2020,03/07 COVID-19, LNP-s, No Preserve , Kenny-sucrose, Ages 12+ (Pfizer) 06/09/2021 COVID-19, MRNA-LNP, 23-24, P F, 30 MCG/0.3 mL, 12 YRS AND ABOVE, IM (PFIZER-Comirnaty) 11/21/2022 Pneumococcal Conjugate Vacci ne, 20-valent ([id number]) 11/15/2022 Pneumococcal Polysaccharide PPV23 (Pneumovax) 08/14/2012 SEASONAL [...] Care Team (Late st Contact Info) Description 12/13/2022 9:45 AM EST Office Visit Gynecology/Obstetrics Demetra Nicole [address] [place] [address] Tylor Georges MD [address] [place] [address] Scheduled Procedures Name Priority Associated Diagnoses Date/Ti [...] Panel 02/20/2023 02/20/2018, 05/03/2013 Mammogram 08/31/2023 08/30/2022, 0504/2017, 09/09/2015, Additional history exists DXA Scan 08/30/2024 08/30/2022, 02/07, 03/06/2012, Additional history exists VITAMIN D LEVEL ONCE IN A LIFETIME-USE SMARTSET# [id number] Completed 05/03/2013 Pap Smear Discontinued 05/31/2017, 11/07, [...] filedocumented as of this encounter Care Teams Director Environmental Relationship Specialty Start Date End Date Lesa Ashton DO [address] [place] [address] PCP - General Family Medicine 02/15/18 documented as of this encounter
--- OUTSIDE RECORDS SUMMARY | 2023-05-26 21:35 | External Medical Summary | Summary of Care ---
Author Name Unknown Organization [facility] Address [address] [place] [address] Phone [phone] Care Team Providers Care Business Leader Name Role Phone Daisha Mcfaddenmayra Lester Primary Care Provider Reason for Visit * Reason Onset Date Comments Advice 12/07/[address] Georges Encounter Details Date Type Department Care Team ([facility] Contact Info) Description 12/07/2022 Telephone Gynecology/Obstetrics [facility] [email or web address] [place] [address] Tylor Georges MD [address] [place] [address] Advice (Review with Dr. Georges) Allergies Active [...] mRNA, LNP-s, No Pre serve, 2-Dose Series ([employer]) 07/10/2021,11/06/2020,03/28/2020,03/07 COVID-19, LNP-s, No Preserve , Kenny-sucrose, Ages 12+ (Pfizer) 06/09/2021 COVID-19, MRNA-LNP, 23-24, P F, 30 MCG/0.3 mL, 12 YRS AND ABOVE, IM (PFIZER-Comirnaty) 11/21/2022 Pneumococcal Conjugate Vacci ne, 20-valent ([id number]) 11/15/2022 Pneumococcal Polysaccharide PPV23 (Pneumovax) 08/14/2012 SEASONAL [...] D LEVEL ONCE IN A LIFETIME-USE SMARTSET# [id number] Completed 05/03/2013 Pap Smear Discontinued 05/31/2017, 11/07, [...] filedocumented as of this encounter Care Teams Business Leader Relationship Specialty Start Date End Date Lesa Ashton DO [address] [place] [address] PCP - General Family Medicine 02/15/18 documented as of this encounter
--- OUTSIDE RECORDS SUMMARY | 2023-05-26 21:35 | External Medical Summary | Summary of Care ---
Author Name Unknown Organization [facility] Address [address] [place] [address] Phone [phone] Care Team Providers Care Healthcare Project Manager Name Role Phone Daisha Lesa Lester DO Primary Care Provider Reason for Visit * Reason Onset Date Comments Advice 01/03/2023 Encounter Details Date Type Department Care Team ([facility] st Contact Info) Description 01/03/2023 Telephone Gynecology[facility]etric[facility] [address] [place] [address] Tylor Georges MD [address] [place] [address] Advice Allergies Active Allergy Reactions Criticality Noted Date Comments Mercury 05/10/2013 Shellfish Allergy Edema Other,Rash High 04/09/2014 Thimerosal (Thiomersal) 05/10/2013 Other reaction(s): swelling Mercurial Derivatives Edema Other 03/09/2006 Generalized body documented as of this encounter (statuses as of 01/03/2023) Medications Medication Sig Dispensed Refills Start Date [...] as of this encounter (statuses as of 01/03/2023) Active Problems Problem Noted Date Diagnosed Date Primary osteoarthritis of both hands 10/10/2017 Chronic left shoulder pain 09/08/2017 Other osteoporosis without current pathological fracture 04/19/2007 Overview: ICD-10 update of inactive term Generalized osteoarthritis Overview: wrists and ankles 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 as of this encounter (statuses as of 01/03/2023) Resolved Problems Problem Noted Date Diagnosed Date Resolved Date Malnutrition of moderate degree 05/12/2020 10/23/2021 documented as of this encounter (statuses as of 01/03/2023) Immunizations Name Administration Dates Next Due COVID-19 mRNA, LNP-s, No Pre serve, 2-Dose Series (Solaiemes) 07/10/2021,11/06/2020,03/28/2020,03/07 COVID-19, LNP-s, No Preserve , Kenny-sucrose, Ages 12+ (Pfizer) 06/09/2021 COVID-19, MRNA-LNP, 23-24, P F, 30 MCG/0.3 mL, 12 YRS AND ABOVE, IM (PFIZER-Comirnaty) 11/21/2022 Pneumococcal Conjugate Vacci ne, 20-valent ([id number]) 11/15/2022 Pneumococcal Polysaccharide PPV23 (Pneumovax) 08/14/2012 SEASONAL [...] encounter Miscellaneous Notes * Telephone Encounter - Makayla Gann RN - 01/03/2023 12:[address] Georges, pt should monitor. The pathology was normal so he is not concerned. It could be coming from the fibroid. Should only get concerned if period like. He feels that this will eventually stop on its own. Pt is aware and agreeable. * Telephone Encounter - Makayla Gann RN - 01/03/2023 9:21 AM EST Pt had a D&C for PMB with DR Pereira 10/2022. She has continued to have light bleeding since then. Wears a mini pad each day. Varies in color from dark brown to red blood. She has had cramping off and on. She last had an US 09/2022 showing fibroids. Pt unsure what the next step would be. Will review with DR. Georges and call pt back at [phone] documented in this encounter Plan of Treatment [...] D LEVEL ONCE IN A LIFETIME-USE SMARTSET# [id number] Completed 05/03/2013 Pap Smear Discontinued 05/31/2017, 11/07, [...] filedocumented as of this encounter Care Teams Healthcare Project Manager Relationship Specialty Start Date End Date Lesa Ashton DO [address] [place] [address] PCP - General Family Medicine 02/15/18 documented as of this encounter
--- OUTSIDE RECORDS SUMMARY | 2023-05-26 21:35 | External Medical Summary | Summary of Care ---
Author Name Unknown Organization [facility] Address [address] [place] [address] Phone [phone] Care Team Providers Care Test Cell Technician Name Role Phone Daisha Mcfaddenmayra Lester Primary Care Provider Reason for Visit * Reason Onset Date Comments Advice 12/07/[address] Georges Encounter Details Date Type Department Care Team ([facility] Contact Info) Description 12/07/2022 Telephone Gynecology/Obstetrics [facility] [address] [place] [address] Tylor Georges MD [address] [place] [address] Advice (Review with Dr. Georges) Allergies Active [...] mRNA, LNP-s, No Pre serve, 2-Dose Series (TheTakes) 07/10/2021,11/06/2020,03/28/2020,03/07 COVID-19, LNP-s, No Preserve , Kenny-sucrose, Ages 12+ (Pfizer) 06/09/2021 COVID-19, MRNA-LNP, 23-24, P F, 30 MCG/0.3 mL, 12 YRS AND ABOVE, IM (PFIZER-Comirnaty) 11/21/2022 Pneumococcal Conjugate Vacci ne, 20-valent ([id number]) 11/15/2022 Pneumococcal Polysaccharide PPV23 (Pneumovax) 08/14/2012 SEASONAL [...] encounter Miscellaneous Notes * Telephone Encounter - Chrau Alberto LPN - 12/07/2022 8:11 AM EDT [...] D LEVEL ONCE IN A LIFETIME-USE SMARTSET# [id number] Completed 05/03/2013 Pap Smear Discontinued 05/31/2017, 11/07, [...] filedocumented as of this encounter Care Teams Test Cell Technician Relationship Specialty Start Date End Date Lesa Ashton DO [address] [place] [address] PCP - General Family Medicine 02/15/18 documented as of this encounter
[2023-05-26] MEDS ORDERED: cefTRIAXone SODIUM 1,000 MG in DEXTROSE 5 % MINI-B 50 ML IV SCH (22:00)
[2023-05-27] MEDS: PIPERACILLIN/TAZOBACTAM 4.5 GM in DEXTROSE 5% MINI-B 100 ML IV SCH (00:16)
[2023-05-27] MEDS: hydrOXYzine HCl 10 MG TAB PO PRN (00:17)
[2023-05-27 04:56] LABS: Basophils # (auto) 0.03 K/uL (0.00-0.20); Basophils % (auto) 0.3 %; Eosinophils % (auto) 0.9 %; Hematocrit (blood only) 30.6 % (37.0-47.0); Hemoglobin 10.6 g/dl (12.0-16.0); Immature Granulocytes # (auto) 0.07 K/uL (0.01-0.20); Immature Granulocytes % (auto) 0.6 %; Lymphocytes # (auto) 2.97 K/uL (1.20-3.40); Lymphocytes % (auto) 27.3 %; Mean Corpuscular Hemoglobin 31.9 pg (25.0-34.0); Mean Corpuscular Hgb Conc 34.6 g/dL (32.0-36.0); Mean Corpuscular Volume 92.2 fL (80.0-100.0); Mean Platelet Volume 9.2 fL (9.4-12.4); Monocytes # (auto) 0.92 K/uL (0.11-0.59); Monocytes % (auto) 8.5 %; Neutrophils # (auto) 6.79 K/uL (1.40-6.50); Neutrophils % (auto) 62.4 %; Platelet Count 246 K/uL (130-400); RDW Coefficient of Variation 13.1 % (11.5-14.5); RDW Standard Deviation 44.1 fL (36.4-46.3); Red Blood Count 3.32 M/uL (4.20-5.40); White Blood Count 10.88 K/ul (4.8-10.8)
--- NOTE | 2023-05-27 06:02 | Electrocardiogram Report ---
Test Reason : Blood Pressure : / mmHG Vent. Rate : 105 BPM Atrial Rate : 105 BPM P-R Int : 134 ms QRS Dur : 094 ms QT Int : 360 ms P-R-T Axes : 083 -54 080 degrees QTc Int : 475 ms Sinus tachycardia with Fusion complexes Right atrial enlargement Left anterior fascicular block Possible Inferior infarct , age undetermined Abnormal ECG Confirmed by Too Jennings ([id number]) on 05/27/2023 6:02:18 AM Referred By: REFERRED SELF Confirmed By:Atul Jennings
[2023-05-27 06:39] LABS: Albumin Globulin Ratio 1.5 (0.9-2); BUN Creatinine Ratio 10.7 (10-20); Bilirubin,Total 0.2 mg/dl (0.2-1.0); Calcium 8.4 mg/dl (8.6-10.3); Creatinine Clr Calc Pharmacy 67.1 ml/min; Est GFR (Non-African American) 95.8 ml/min; Ferritin 77.4 ng/ml (8-388); Magnesium 1.5 mg/dl (1.7-2.4); Phosphorus 3.8 mg/dl (2.5-4.9); Potassium 3.4 mmol/L (3.5-5.1)
[2023-05-27 07:36] LABS: Folate (Folic Acid),Ser orPlas 9.59 ng/ml (>5.38)
[2023-05-27] MEDS: POTASSIUM CHLORIDE CRTAB 20 MEQ TABCR PO STA (09:24)
[2023-05-27] MEDS: MAGNESIUM SULFATE / D5W 1 GM/100 ML BAG IV SCH (09:24)
[2023-05-27] MEDS: MAGNESIUM OXIDE 400 MG TAB PO SCH (11:02)
--- NOTE | 2023-05-27 13:03 | Hospitalist Progress Note ---
Date of Service May 27, 2023 Assessment & Plan (1) Severe sepsis: (2) Elevated lactic acid level: (3) Infection due to human metapneumovirus (hMPV): (4) Failure of outpatient treatment: (5) Leukocytosis: (6) Pneumonia: (7) SOB (shortness of breath): Plan Pt is a 68yoF with PMHx significant for history of ovarian tumor as per records, ongoing tobacco abuse admitted with sepsis in the setting of pneumonia. Sepsis Pneumonia Human Metapneumovirus Infection Pt with leukocytosis, tachycardia, tachypnea on admission. Infectious source pulmonary Chest XRAY with noted bibasilar opacities Chest CTA noting no PE but R middle lobe and lingula pneumonia Biofire positive for human metapneumovirus infection Blood Cx x2sets NGTD Sputum Cx NGTD UA unremarkable lactate elevated at 4.6 on arrival, downtrending after fluid resuscitation procalcitonin normal Pt states she sometimes has choking episodes, R sided pneumonia sugg of possible aspiration. Speech consult noting no noted issues, however recommending video swallow if pt has further symptoms. Rocephin broadened to Zosyn for aspiration coverage, continue doxycycline for atypicals Supportive treatments for viral infection Continue to monitor Acute hypoxic respiratory Failure Pt with noted episodes of hypoxia Likely in setting of above No oxygen requirement at baseline Nebs scheduled Wean oxygen as tolerated, consider 2 step at dc Iron Deficiency Anemia Hgb dropped from 14 to 11.7 Pt likely was dehydrated/hemoconcentrated on arrival Anemia labs (iron panel, folate, b12) -iron deficiency noted, s/p IV Venofer -b12 levels also low, needs b12 shot in AM -folate level normal Continue to monitor H/H Hyponatremia Slight decrease in sodium level Continue to monitor Prediabetes Glucose levels elevated Hgba1c of 5.7 indicating prediabetes Lifestyle changes- watching carb intake, exercise PCP followup COPD Tobacco Use Pt is a daily smoker for the last 50years chest xray noting emphysema Likely complicating factor in above Nicotine patch Outpatient further evaluation and management hx of ovarian tumor as per records Trey tumor as per outpatient records 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 Was on RA sitting on the bed. Denied acute concerns at that time, asking about going home. Review of Systems Review of Systems: All systems reviewed & are unremarkable except as noted in Subjective Physical Exam Physical Exam: General: Alert, oriented Skin: No noted rashes or bruises Psych: Appropriate mood and affect Neuro: No gross deficits HEENT: NC/AT CV: RRR Resp: Breath sounds coarse bilaterally, coughs with deep breaths Abdomen: Soft, nontender, nondistended Extremities: No edema in lower extremities bilaterally. Results & Data Results & Data Vital Signs (Past 12 Hours) Vital Signs Temp Pulse Pulse Resp BP Pulse Ox O2 Del Method 05/27/23 12:07 86 16 96 Room Air 05/27/23 11:43 37.0 C 88 16 136/82 94 Room Air 05/27/23 10:24 Room Air 05/27/23 09:42 80 05/27/23 07:20 76 20 138/69 97 Nebulizer 05/27/23 07:15 81 16 92 Room Air 05/27/23 03:10 36.8 C 84 18 124/77 98 Nasal Cannula O2 Flow Rate 05/27/23 12:07 05/27/23 11:43 05/27/23 10:24 05/27/23 09:42 05/27/23 07:20 6 05/27/23 07:15 05/27/23 03:10 2 (5) Leukocytosis Leukocytosis type: unspecified Qualified Code(s): D72.829 - Elevated white blood cell count, unspecified (6) Pneumonia Laterality: bilateral Lung location: lower lobe of lung Pneumonia type: due to unspecified organism Qualified Code(s): J18.9 - Pneumonia, unspecified organism
[2023-05-27] MEDS: IRON SUCROSE 200 MG in 0.9 % SODIUM CHLORIDE 100 ML IV ONE (13:28)
--- NOTE | 2023-05-27 19:57 | Communication Note ---
Date of Service: May 27, 2023 Patient with fever, diarrhea symptoms without abdominal pain as per RN. AP Diarrhea with fever Rule out C. difficile given antibiotic Rx Stool C. difficile Hold mag oxide for now
[2023-05-27] MEDS: ACETAMINOPHEN 325 MG TAB PO STA (20:02)
[2023-05-27] MEDS: NSS + 20MEQ KCL 20 MEQ/1,000 ML BAG IV ONE (20:33)
[2023-05-28 05:08] LABS: Albumin Globulin Ratio 1.5 (0.9-2); Albumin Level 3.1 gm/dl (3.4-5.0); BUN Creatinine Ratio 8.3 (10-20); Bilirubin,Total 0.3 mg/dl (0.2-1.0); Calcium 8.5 mg/dl (8.6-10.3); Creatinine Clr Calc Pharmacy 78.3 ml/min; Est GFR (African American) 116.8 ml/min; Est GFR (Non-African American) 100.8 ml/min; Globulin 2.1 gm/dl (2.5-4.0); Magnesium 1.9 mg/dl (1.7-2.4); Phosphorus 4.6 mg/dl (2.5-4.9); Potassium 3.7 mmol/L (3.5-5.1); Total Protein 5.2 gm/dl (6.0-8.3)
[2023-05-28 05:15] LABS: Basophils # (auto) 0.03 K/uL (0.00-0.20); Basophils % (auto) 0.3 %; Eosinophils # (auto) 0.12 K/uL (0.00-0.50); Eosinophils % (auto) 1.2 %; Hematocrit (blood only) 31.2 % (37.0-47.0); Hemoglobin 10.8 g/dl (12.0-16.0); Immature Granulocytes # (auto) 0.08 K/uL (0.01-0.20); Immature Granulocytes % (auto) 0.8 %; Lymphocytes # (auto) 2.55 K/uL (1.20-3.40); Lymphocytes % (auto) 24.8 %; Mean Corpuscular Hemoglobin 31.9 pg (25.0-34.0); Mean Corpuscular Hgb Conc 34.6 g/dL (32.0-36.0); Mean Platelet Volume 9.1 fL (9.4-12.4); Monocytes # (auto) 1.02 K/uL (0.11-0.59); Monocytes % (auto) 9.9 %; Neutrophils # (auto) 6.48 K/uL (1.40-6.50); Platelet Count 274 K/uL (130-400); RDW Coefficient of Variation 13.2 % (11.5-14.5); Red Blood Count 3.39 M/uL (4.20-5.40); White Blood Count 10.28 K/ul (4.8-10.8)
[2023-05-28] MEDS: CYANOCOBALAMIN (B-12) 500 MCG TABLET PO SCH (10:21)
--- NOTE | 2023-05-28 11:13 | Pulmonary Consultation ---
Date of Consultation May 28, 2023 Assessment & Plan (1) Viral pneumonia: Patient has a viral pneumonia secondary to human metapneumovirus. She likely has underlying COPD. Continue with supportive management. I think she is stable for discharge home today from this perspective. Not unreasonable to treat for possible superimposed bacterial pneumonia with a short course of Augmentin and doxycycline. Would recommend a total course of 7 days of antibiotics. Fever last night was likely from persistent viral pneumonia. I suspect patient is stable for dismissal from the hospital today with close follow-up in 5 to 7 days with her PCP (2) Tobacco abuse counseling: She is a heavy smoker and has smoked greater than 50 pack years. Complete smoking cessation is advised. Recommended the patient be placed on a low-dose CT lung cancer screening protocol which could be set up through her PCP office in [facility]. Given the groundglass opacities, I would recommend a repeat CT in roughly 3 months. PFTs would be of benefit as noted outpatient which could be ordered by her outpatient PCP. Sending her home with as needed albuterol inhaler would be reasonable at this time. Can further augment inhaler regimen as depending on PFT results. (3) Severe sepsis: Her severe sepsis seems to be resolving as her lactic acidosis has improved significantly. She is not hypotensive and she does not appear acutely ill at this time. Plan No further pulmonary recommendations at this time. Thank you for the consult. Please call questions. I did food counselor the patient regarding her diagnosis and treatment plan and she expressed understanding. Greater than 50% of the time was spent [id number] with the patient counseling them on their diagnosis and treatment plan. This note was dictated using voice recognition software and may include grammatical errors, extra words, word substitutions and other inaccuracies due to errors in the voice recognition software and differences in speech patterns. History of Present Illness Reason for Consultation: Pneumonia/fevers Attending Physician: Nesha Reese MD History of Present Illness 60-year-old female with a significant smoking history presenting to the hospital due to severe shortness of breath which is now slowly improving. She notes that about a week ago she started having URI symptoms including cough and fevers. She also had some myalgias. Her symptoms are largely improved and she is eager to go home. She had a chest CTA completed this admission which revealed patchy bilateral groundglass airspace opacities favoring the right middle lobe and lingula. Respiratory viral panel was positive for human metapneumovirus. She did have some diarrhea earlier this admission which is likely due to gastroenteritis.Patient notes that she smoked since the age of 16 roughly 1 pack/day and continues to smoke. She is eager to quit smoking after this hospital admission. She is not routinely on any inhalers.She notes that she walked around the hallways today without any significant shortness of breath. Allergies Allergy/AdvReac Type Severity Reaction Status Date / Time thimerosal Allergy Intermediate swelling Verified 05/25/23 22:21 Home Medications Medication Instructions Recorded Confirmed Type calcium carbonate (Calcium 600) 600 mg PO QAM 09/05/18 05/25/23 History medroxyprogesterone 2.5 mg tablet 2.5 mg PO QAM 09/05/18 05/25/23 History [id number]-[id number]-[id number] 8 mg-folic 400 1 tab PO QAM 09/05/18 05/25/23 History mcg-K 50 mcg-lutein 300 mcg tablet (Multivitamin Women 50 Plus) albuterol sulfate 90 mcg/actuation 2 puff inhalation Q4 PRN Shortness 05/25/23 05/25/23 History aerosol inhaler Of Breath Or Wheezing estradiol 0.5 mg tablet 0.5 mg PO QAM 05/25/23 05/25/23 History Patient History Medical History (Updated 05/28/23 @ 11:09 by Taurus Benites MD) Tobacco abuse counseling Viral pneumonia Osteoarthritis Glaucoma Migraine HX Surgical History H/O wrist surgery RT H/O elbow surgery RT TENNIS ELBOW History of esophagogastroduodenoscopy (EGD) History of colonoscopy H/O bilateral oophorectomy History of section History of appendectomy History of tooth extraction S/P tonsillectomy and adenoidectomy H/O eye surgery RT/LEFT "RADIAL KERATOTOMY" Family History Father Family hx of colon cancer Social History Smoking Status: Current every day smoker Tobacco Type: Cigarettes Cigarettes Per Day: 20 CIG DAILY; Second Hand Exposure: No; Do You Dip or Chew Tobacco: No; Hx Alcohol Use: No Hx Substance Use: No Preferred Language: Croatian Communication Ability: Effective 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 Patient is in no apparent distress. Patient is well-developed. Eyes: Pupils are equal round and reactive to light. Conjunctivae are normal. Anicteric sclera. Ears nose, mouth and throat: Mallampati class 1. Normal posterior oropharynx. Uvula is midline. Neck: Trachea is midline. Visual inspection is normal. Respiratory: Mild rhonchi in the upper lobes. No wheezes. Prolonged phase of exhalation. Cardiovascular: Regular rate and rhythm. No murmurs. No edema. Gastrointestinal: Normal bowel sounds, soft, nontender and nondistended. No hepatosplenomegaly noted. Musculoskeletal: No cyanosis. Patient is able to move all extremities. Strength is 5 out of 5 in the upper and lower extremities. Skin: No rashes, warm dry and intact. Neurologic: No obvious focal neurological deficits seen. Psychiatric: Alert and oriented x3 with a euthymic affect. Results & Data Results & Data Vital Signs (Past 12 Hours) Vital Signs Temp Pulse Pulse Resp BP Pulse Ox O2 Del Method 05/28/23 09:18 Room Air 05/28/23 07:26 36.4 C L 82 18 131/77 99 Nebulizer 05/28/23 07:21 80 18 96 Nasal Cannula 05/28/23 07:19 78 05/28/23 03:21 36.7 C 82 16 126/76 94 Room Air O2 Flow Rate 05/28/23 09:18 05/28/23 07:26 7 05/28/23 07:21 2 05/28/23 07:19 05/28/23 03:21 PG Care Time/CCT Total # of Minutes Spent Total Time Spent with Patient: Total time spent is greater than 50% in coordination of care (as documented) at patient's floor/unit and/or counseling patient: Coding Level of Care Code 38087 IN/OBS CONSULT LVL 3,45M Diagnoses Viral pneumonia J12.9 Tobacco abuse counseling Z71.6 Severe sepsis A41.9; R65.20
--- NOTE | 2023-05-28 13:01 | Discharge Summary ---
Discharge Summary Date of Service May 28, 2023 Notes For Next Care Provider Please ensure followup in 5-7 days Per Pulmonology, the following is recommended: -pt needs low dose lung cancer screening, consider enrollment -Repeat CT chest in 3 months -needs PFTs -encourage smoking cessation Pt with also noted iron and B12 deficiency- s/p supplementation. Please ensure followup Pt with diagnosis of prediabetes- encourage lifestyle changes Medication Changes From Visit Augmentin 875mg BID x 11 more doses Doxycycline 100mg BID x 11 more doses Albuterol inhaler renewed cyanocobalamin (b12) 1000mcg daily Admission HPI Per Admitting Provider History obtained from patient and records. Medical history significant for history of ovarian tumor as per records, ongoing tobacco abuse. 1 week history of junky cough symptoms later productive of yellow sputum. Patient with fever, chills, sinus congestion. Wheezing and SOB symptoms as per patient. Denies aspiration. Patient seen at PCPs office yesterday. Z-Zoran, neb, and prednisone course prescribed for complicated bronchitis. Worsening symptoms with pleuritic chest pain at home. Patient brought to ER for evaluation. Solu-Medrol, neb treatment, ceftriaxone administered at the ER. 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 Admission Exam Per Admitting Provider GENERAL: Comfortable, pleasant, underweight, no respiratory distress SKIN: Normal color, warm HEENT: [place] palpebral conjunctivae, no ptosis, dry buccal mucosa, nasal cannula in place NECK : Supple, no tenderness CHEST : Decreased breath sounds, scattered expiratory wheezes, no tenderness HEART : RRR, no obvious murmurs ABDOMEN: no distention, nontender EXTREMITIES : No LE swelling/tenderness, no other conspicuous deformities noted NEUROLOGIC : Coherent, no facial asymmetry, no other gross focality Principal Dx & Hospital Course #1 = Principal Diagnosis (1) Severe sepsis: (2) Elevated lactic acid level: (3) Infection due to human metapneumovirus (hMPV): (4) Failure of outpatient treatment: (5) Leukocytosis: (6) Pneumonia: (7) SOB (shortness of breath): Plan Pt is a 68yoF with PMHx significant for history of ovarian tumor as per records, ongoing tobacco abuse admitted with sepsis in the setting of pneumonia. Sepsis Pneumonia Human Metapneumovirus Infection Pt with leukocytosis, tachycardia, tachypnea on admission. Infectious source pulmonary Chest XRAY with noted bibasilar opacities Chest CTA noting no PE but R middle lobe and lingula pneumonia Biofire positive for human metapneumovirus infection Blood Cx x2sets NGTD Sputum Cx NGTD UA unremarkable lactate elevated at 4.6 on arrival, downtrended to normal after fluid resuscitation on discharge procalcitonin normal Pt states she sometimes has choking episodes, R sided pneumonia suggestive of possible aspiration. Speech consult noting no noted issues, however recommending video swallow if pt has further symptoms Rocephin broadened to Zosyn for aspiration coverage, was on doxycycline for atypical coverage Supportive treatments for viral infection Pulmonary was consulted, appreciate recs. Recommended the following: -pt needs low dose lung cancer screening, consider enrollment -Repeat CT chest in 3 months -needs PFTs -encourage smoking cessation -pcp follow up in 3-5 days PCP followup Acute hypoxic respiratory Failure Pt with noted episodes of hypoxia Likely in setting of above No oxygen requirement at baseline Nebs scheduled Weaned oxygen as tolerated Two step at discharge noted that pt did not need oxygen at rest or with ambulation Iron Deficiency Anemia Vitamin b12 Deficiency Hgb dropped from 14 to 11.7 Pt likely was dehydrated/hemoconcentrated on arrival Anemia labs (iron panel, folate, b12) -iron deficiency noted, s/p IV Venofer -b12 levels also low, started on daily b12 supplement. PCP followup -folate level normal PCP follow up Hyponatremia Slight decrease in sodium level on admission Sodium level normal on discharge Prediabetes Glucose levels elevated Hgba1c of 5.7 indicating prediabetes Lifestyle changes- watching carb intake, exercise, etc PCP followup COPD Tobacco Use Pt is a daily smoker for the last 50years chest xray noting emphysema Likely complicating factor in above Nicotine patch Pulmonology consulted as above -pt needs low dose lung cancer screening, consider enrollment -Repeat CT chest in 3 months -needs PFTs -encourage smoking cessation -pcp follow up in 3-5 days hx of ovarian tumor as per records Trey tumor as per outpatient records 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 Updated Medication List Medication Instructions Recorded Confirmed Type calcium carbonate (Calcium 600) 600 mg PO QAM 09/05/18 05/25/23 History medroxyprogesterone 2.5 mg tablet 2.5 mg PO QAM 09/05/18 05/25/23 History [id number] 8 mg-folic 400 1 tab PO QAM 09/05/18 05/25/23 History mcg-K 50 mcg-lutein 300 mcg tablet (Multivitamin Women 50 Plus) estradiol 0.5 mg tablet 0.5 mg PO QAM 05/25/23 05/25/23 History albuterol sulfate 90 mcg/actuation 2 puff inhalation Q4 PRN Shortness 05/28/23 Rx aerosol inhaler Of Breath Or Wheezing #6.7 grams amoxicillin 875 mg-potassium 1 tab PO BID #11 tabs 05/28/23 Rx clavulanate 125 mg tablet cyanocobalamin (vitamin B-12) 500 1,000 mcg (2 x 500 mcg) PO QAM #30 05/28/23 Rx mcg tablet tabs doxycycline hyclate 100 mg capsule 100 mg PO BID #11 caps 05/28/23 Rx Hospital Stay Data Consultations 05/25/23 22:08 ED Decision to Admit Stat 05/28/23 10:48 Consult Pulmonology Routine Diagnostic Imagining Performed 05/25/23 22:41 CT angio chest PE protocol Stat Chest X-Ray 05/25/23 19:53 SINGLE VIEW CHEST CLINICAL HISTORY: Atypical chest pain. FINDINGS: An AP, portable, upright chest radiograph is compared to study dated 08/27/2012. The cardiomediastinal silhouette is unremarkable noting atherosclerotic calcification of the thoracic aorta. Emphysema and chronic interstitial thickening is similar to previous. There are bibasilar airspace opacities. No large pleural effusion or pneumothorax is seen. The skeletal structures are osteopenic. The bony thorax is grossly intact. Calcific tendinopathy is noted in the right shoulder. IMPRESSION: 1. Emphysema. 2. Bibasilar airspace opacities likely represent scarring/atelectasis. Correlate clinically for evidence of a superimposed infectious/inflammatory pneumonitis. ACT 112: Negative or not required by law. Electronically signed by: Vin Love M.D. 05/25/2023 10:23 PM Chest CTA 05/25/23 22:41 Exam(s): CTA CHEST IV Amt: OPTIRAY [id number] 119ML EXAM: CT Angiography Chest With Intravenous Contrast CLINICAL HISTORY: Reason for exam: cp. TECHNIQUE: Axial computed tomographic angiography images of the chest with intravenous contrast. CTDI is 17 mGy and DLP is 252.93 mGy-cm. Automated exposure control was utilized for the study. A dose lowering technique was utilized adhering to the principles of ALARA. MIP reconstructed images were created and reviewed. COMPARISON: No relevant prior studies available. FINDINGS: Pulmonary arteries: Unremarkable. No acute pulmonary embolism. Aorta: No acute findings. No thoracic aortic aneurysm. Lungs: Mild patchy bilateral ground-glass airspace opacities preferentially involving the RIGHT middle lobe and lingula, concerning for mild pneumonia. Dependent atelectasis. Pleural space: Unremarkable. No pleural effusion or pneumothorax. Heart: Unremarkable. No cardiomegaly. No significant pericardial effusion. No evidence of RV dysfunction. Bones/joints: No acute fracture. No dislocation. Soft tissues: Unremarkable. Lymph nodes: Unremarkable. No enlarged lymph nodes. IMPRESSION: 1. No acute pulmonary embolism. 2. Mild patchy bilateral ground-glass airspace opacities preferentially involving the RIGHT middle lobe and lingula, concerning for mild pneumonia. Electronically signed by: Bautista Peacock MD 05/25/23 23:37 PM Discharge Instructions Given to Patient (Per Discharging Provider) Ms. Jimenez, Lars were admitted with a Human metapneumovirus infection and pneumonia. You had some trouble breathing that required oxygen but that got better. We determined that you do not need oxygen to use at home. You were seen by the supervisor [employer] and they recommended the following: -Your fever last night was likely related to your viral infection -Discharging with antibiotics for a possible bacterial component of pneumonia as well -Using an as needed albuterol inhaler at home -that you STOP smoking -that you have lung cancer screening done by your primary care provider -repeat CT of your chest in 3 months by your primary care provider -have pulmonary function tests done We are discharging you home with 11 more DOSES (about 5 days) of the antibiotics doxycycline and augmentin. Please take as prescribed. You were determined to have lung changes consistent with COPD on imaging, likely from your chronic smoking. We recommend close follow up with a supervisor [employer] after discharge. Please also keep close follow up with your primary care provider after discharg e. Please do not hesitate to come back to the emergency room if your symptoms worsen or return. It was a pleasure taking care of you while you were here. Total Time Total Time Spent Total Time Spent (In Minutes): > 30 minutes
== END 2023-05-28 14:11 | disposition home or self-care (01) | DRG 871 ==
LOC: ED 19:44 → EDINP 23:58 → 2W 05-26 01:00

== ENCOUNTER 2023-12-01 05:28 | Observation (INO) ==
--- NOTE | 2023-11-10 13:33 | Anesthesiology Consultation ---
Date of Service November 10, 2023 Assessment & Plan (1) Encounter for pre-operative examination: - ER 10/25/23 [facility]: "...cold and upper respiratory symptoms for about the past week, over the weekend she went to a local urgent care and was diagnosed with COVID-19. Patient states that overnight at about 3 AM she developed pain in her epigastric region...she does not have nausea but she did have 2 episodes of dry heaving this morning...CT imaging of the abdomen pelvis was obtained that shows wall thickening of the distal stomach possibly secondary to distention versus gastritis. Given the patient's clinical exam findings with epigastric pain I suspect this is the source of her discomfort. Patient does admit to drinking 2- 3 alcoholic beverages per night and I suspect that this is likely playing a role in her gastritis. Patient was given IV Protonix here in the ED, she will be discharged with a prescription for PPI therapy and was advised to limit alcohol intake in the future as I think this is likely playing a role in her gastritis and pain..." - Per shine worker on 10/17/23: COVID positive within past 30 days (10/25/23) but less than 11 days, no current infectious symptoms. Chart Review Chart Review: Acceptable Risk for Surgery and Patient NOT seen in Pre Admission Testing History Surgery Operation Date: 12/01/23 08:50 Proposed Procedures p Total Laparoscopic Hysterectomy, Bilateral Salpingo-Oophorectomy and Cystoscopy as Any Indicated Procedure - Tylor Georges MD Height/Weight Height: 5 ft Weight: 43.091 kg Allergies Allergy/AdvReac Type Severity Reaction Status Date / Time thimerosal Allergy Intermediate Swelling/Redness Verified 10/23/23 09:20 all over Medications Home Medications Medication Instructions Recorded Confirmed Last Taken calcium carbonate (Calcium 600) 600 mg PO QAM 09/05/18 10/23/23 05/25/23 medroxyprogesterone 2.5 mg tablet 2.5 mg PO QAM 09/05/18 10/23/23 05/25/23 kctsxfpo-oacb-cfmg 8 mg-folic 400 1 tab PO QAM 09/05/18 10/23/23 05/25/23 mcg-K 50 mcg-lutein 300 mcg tablet (Multivitamin Women 50 Plus) estradiol 0.5 mg tablet 0.5 mg PO QAM 0410/23/23 05/25/23 albuterol sulfate 90 mcg/actuation 2 puff inhalation Q4 PRN Shortness 05/28/23 10/23/23 Unknown aerosol inhaler Of Breath Or Wheezing #6.7 grams acetaminophen 500 mg tablet 500 mg PO QAM 10/17/23 10/23/23 Unknown ibuprofen 200 mg tablet 200 mg PO QAM 10/17/23 10/23/23 Unknown timolol maleate 0.5 % eye drops 1 drp ophthalmic (eye) QAM 10/17/23 10/23/23 Unknown nirmatrelvir 300 mg (150 mg See Rx Instructions PO .COMPLEX 10/23/23 10/23/23 Unknown x2)-ritonavir 100 mg tablet,dose #30 ea pack (Paxlovid) omeprazole 40 mg capsule,delayed 40 mg PO DAILY 10 weeks #70 caps 10/25/23 Unknown release Past Medical History Medical History (Updated 11/10/23 @ 13:22 by Yue Lara PA-C) Glaucoma Bilateral History of pneumonia HMPV - 05/2023 - [facility] Hospitalization Hx of sepsis r/t HMPV Hx of shortness of breath 05/2023 - pneumonia Migraine hx Osteoarthritis Past Family History Family History Father Family hx of colon cancer Past Surgical History Surgical History H/O bilateral oophorectomy H/O elbow surgery Right Tennis Elbow H/O eye surgery Bilateral "Radial Keratotomy" H/O wrist surgery Right History of appendectomy History of section History of colonoscopy History of esophagogastroduodenoscopy (EGD) History of tooth extraction S/P tonsillectomy and adenoidectomy Social History Smoking Status: Current every day smoker tobacco type: cigarettes Smoking cigarettes per day: 1 pack Do You Dip or Chew Tobacco: No Hx Alcohol Use: Yes Alcohol type: wine alcohol intake frequency: a few times a week Hx Substance Use: No substance use type: does not use Lab Results Anesthesia Preop Results Results Anesthesia Widget: WBC 6.05 K/ul (4.8-10.8) 10/25/23 Hgb 15.2 g/dl (12.0-16.0) 10/25/23 Hct 43.3 % (37.0-47.0) 10/25/23 Plt 261 K/uL (130-400) 10/25/23 Na 135 mmol/L (136-145) L 10/25/23 K 4.2 mmol/L (3.5-5.1) 10/25/23 Cl 102 mmol/L (98-107) 10/25/23 CO2 19 mmol/L (21-32) L 10/25/23 BUN 6 mg/dl (6-23) 10/25/23 Creat 0.55 mg/dl (0.6-1.2) L 10/25/23 Glucose Level 85 mg/dl (70-99(Fasting)) 10/25/23 Urine Color Yellow 10/25/23 Urine Appearance Clear (Clear) 10/25/23 Urine pH 5.5 (4.5-7.5) 10/25/23 Urine Specific [place] 1.043 (1.000-1.030) H 10/25/23 Urine Protein Negative (Negative) 10/25/23 Urine Glucose (UA) Negative (Negative) 10/25/23 Urine Ketones Trace (Negative) H 10/25/23 Urine Blood Negative (Negative) 10/25/23 Urine Nitrite Negative (Negative) 10/25/23 Urine Bilirubin Negative (Negative) 10/25/23 Urine Urobilinogen Negative (Negative) 10/25/23 Urine Leukocyte Esterase Negative (Negative) 10/25/23 COVID-19 PCR POSITIVE (Negative) A 10/25/23 SARS-CoV-2, RNA, NAAT Positive 10/23/23 Testing Electrocardiogram Date: 10/25/23 NSR, rate 83 bpm Left anterior fascicular block Chest X-Ray Date: 05/25/23 *1view* 1. Emphysema. 2. Bibasilar airspace opacities likely represent scarring/atelectasis. Correlate clinically for evidence of a superimposed infectious/inflammatory pneumonitis. Echocardiogram Date: 05/27/23 EF 55-60% Mild tricuspid regurgitation Other Testing Abdomen pelvis CT 10/25/23 1. No bowel obstruction or bowel wall thickening. 2. Mild nonspecific wall thickening the distal stomach, likely secondary to partial distention. A nonspecific gastritis considered less likely. 4. Colonic diverticulosis. 5. Additional incidental findings as above. Chest CTA 05/25/23 1. No acute pulmonary embolism. 2. Mild patchy bilateral ground-glass airspace opacities preferentially involving the RIGHT middle lobe and lingula, concerning for mild pneumonia.
[2023-12-01] MEDS: LACTATED RINGER'S 1,000 ML IV SCH (06:02)
[2023-12-01] MEDS: LR 15ML/HR IV SCH (06:02)
[2023-12-01] MEDS ORDERED: ONDANSETRON INJ 2 MG/ML 2 ML VIAL IV PRN ×2 (06:43→09:31)
[2023-12-01] MEDS ORDERED: ePHEDrine sulfate 50 MG/ML AMP IV PRN (06:43)
[2023-12-01] MEDS ORDERED: ATROPINE SULFATE 0.1 MG/ML 10ML SYR IV PRN (06:43)
[2023-12-01] MEDS ORDERED: LABETALOL HCL IV 5 MG/ML 20ML IV PRN (06:43)
[2023-12-01] MEDS ORDERED: NALOXONE HCL 0.4 MG/1 ML VIAL/CARP IV PRN (06:43)
[2023-12-01] MEDS ORDERED: FLUMAZENIL 0.1 MG/1 ML 10 ML VIAL IV PRN (06:43)
[2023-12-01] MEDS ORDERED: PROMETHAZINE HCL 6.25 MG in SODIUM CHLORIDE 0.9% 50 ML IV PRN (06:43)
[2023-12-01] MEDS ORDERED: LIDOCAINE 2% 2 ML VIAL/AMP(20MG/ML) INFIL ONE (06:46)
[2023-12-01] MEDS ORDERED: PROPOFOL IV EMULSION 10 MG/ML 20 ML VIAL IV ONE (06:46)
[2023-12-01] MEDS ORDERED: ONDANSETRON INJ 2 MG/ML 2 ML VIAL ONE (06:46)
[2023-12-01] MEDS ORDERED: DEXAMETHASONE SOD INJ 4 MG/ML VIAL ONE (06:46)
[2023-12-01] MEDS ORDERED: NEOSTIGMINE METHYLSULFATE 1 MG/ML 10ML VIAL ONE (06:46)
[2023-12-01] MEDS ORDERED: GLYCOPYRROLATE 0.2 MG/ML VIAL ONE (06:46)
[2023-12-01] MEDS ORDERED: fentaNYL citrate PF 100 MCG/2 ML VIAL ONE ×2 (06:47→08:55)
[2023-12-01] MEDS ORDERED: MIDAZOLAM HCL 1 MG/ML 2ML VIAL ONE (06:47)
[2023-12-01] MEDS ORDERED: BUPIVACAINE/EPINEPHRINE 0.5% MPF 1:200,000 30 ML VIAL ONE (06:57)
--- NOTE | 2023-12-01 07:02 | History & Physical Report ---
Date of Service December 01, 2023 Assessment & Plan (1) Postmenopausal bleeding: Plan: Total laparoscopic hysterectomy Bilateral salpingo oophorectomy cystoscopy possible laparotomy and any indciated procedsure History of Present Illness Chief Complaint: Postmenopausal bleeding Primary Care Provider: Makeda Nichols PA-C 68 yo with perisitant postmenopausal bleeding Allergies Allergy/AdvReac Type Severity Reaction Status Date / Time thimerosal Allergy Intermediate Swelling/Redness Verified 12/01/23 05:45 all over Home Medications Medication Instructions Recorded Confirmed Type calcium carbonate (Calcium 600) 600 mg PO QAM 09/05/18 12/01/23 History medroxyprogesterone 2.5 mg tablet 2.5 mg PO QAM 09/05/18 12/01/23 History vjvekoei-wvby-azcn 8 mg-folic 400 1 tab PO QAM 09/05/18 12/01/23 History mcg-K 50 mcg-lutein 300 mcg tablet (Multivitamin Women 50 Plus) estradiol 0.5 mg tablet 0.5 mg PO QAM 05/25/23 12/01/23 History albuterol sulfate 90 mcg/actuation 2 puff inhalation Q4 PRN Shortness 05/28/23 12/01/23 Rx aerosol inhaler Of Breath Or Wheezing #6.7 grams acetaminophen 500 mg tablet 500 mg PO QAM 10/17/23 12/01/23 History timolol maleate 0.5 % eye drops 1 drp ophthalmic (eye) QAM 10/17/23 12/01/23 History omeprazole 40 mg capsule,delayed 40 mg PO DAILY 10 weeks #70 caps 10/25/23 12/01/23 Rx release Past Med/Surg History Problem List (Updated 12/01/23 @ 07:01 by Tylor Georges MD) Postmenopausal bleeding COVID-19 (Acute) 10/25/23 Tobacco abuse counseling Viral pneumonia Severe sepsis 05/26/23 Elevated lactic acid level (Acute) 05/25/23 Infection due to human metapneumovirus (hMPV) (Acute) 05/25/23 Failure of outpatient treatment (Acute) Leukocytosis (Acute) 05/25/23 Pneumonia (Acute) 05/25/23 SOB (shortness of breath) (Acute) 05/25/23 Encounter for pre-operative examination Left shoulder pain (Acute) Left shoulder pain (Acute) Medical History Glaucoma Bilateral History of pneumonia HMPV - 05/2023 - [facility] Hospitalization Hx of sepsis r/t HMPV Hx of shortness of breath 05/2023 - pneumonia Migraine hx Osteoarthritis Surgical History H/O bilateral oophorectomy H/O elbow surgery Right Tennis Elbow H/O eye surgery Bilateral "Radial Keratotomy" H/O wrist surgery Right History of appendectomy History of section History of colonoscopy History of esophagogastroduodenoscopy (EGD) History of tooth extraction S/P tonsillectomy and adenoidectomy Family History Father Family hx of colon cancer Social History Smoking Status: Current every day smoker Tobacco Type: Cigarettes Cigarettes Per Day: 1 pack; Second Hand Exposure: No; Do You Dip or Chew Tobacco: No; Tobacco Cessation Education Requested by Patient: No Hx Alcohol Use: Yes Alcohol type: wine Hx Substance Use: No Preferred Language: Estonian Communication Ability: Effective Soda Room Operator Required: No Beliefs That Will Affect Care: None Current Living Situation: Spouse Other Information That Helps Us Care for You: No Feels Safe at Home: Yes Safety Concerns: Feels Safe At This Time Assistive Devices: Glasses Results & Data Results & Data Vital Signs (Past 12 Hours) Vital Signs Temp Pulse Resp BP Pulse Ox O2 Del Method 12/01/23 05:56 Room Air 12/01/23 05:54 71 20 142/69 H 99 Room Air 12/01/23 05:45 36.6 C 76 20 174/80 H 99 Room Air
--- NOTE | 2023-12-01 07:02 | History & Physical Bridge Note ---
Date of Service December 01, 2023 History & Physical Bridge Note I have examined the patient, reviewed the History & Physical and in the interval since the performance of the History & Physical I have noted the following changes of clinical significance: no changes noted
[2023-12-01] MEDS: ceFAZolin 2000MG 2,000 MG/15 ML SYR IV SCH (07:19)
[2023-12-01] MEDS ORDERED: METOPROLOL TARTRATE 1 MG/ML VIAL IV ONE (07:54)
[2023-12-01] MEDS: FLOSEAL HEMOSTATIC MATRIX 10ML TOP ONE (08:23)
[2023-12-01] MEDS ORDERED: METHYLENE BLUE 0.5% 10 ML VIAL ONE (08:28)
[2023-12-01] MEDS ORDERED: LIDOCAINE 2% 20 MG/ML 5 ML SYR IV ONE (08:29)
[2023-12-01] MEDS: METHYLENE BLUE 0.5% 10 ML VIAL IV ONE (08:30)
[2023-12-01] MEDS ORDERED: SUGAMMADEX SODIUM 200 MG/2 ML VIAL IV ONE (08:59)
[2023-12-01] MEDS: BUPIVACAINE/EPINEPHRINE 0.5% MPF 1:200,000 10 ML VIAL INFIL ONE (09:11)
[2023-12-01] MEDS ORDERED: IBUPROFEN 600 MG TAB PO PRN (09:31)
[2023-12-01] MEDS ORDERED: ZOLPIDEM TARTRATE 5 MG TAB PO PRN (09:31)
[2023-12-01] MEDS ORDERED: PROMETHAZINE 12.5 MG/50.5 ML BAG IV PRN (09:31)
[2023-12-01] MEDS ORDERED: oxyCODONE/ACETAMINOPHEN 5mg/325mg TAB PO PRN (09:31)
[2023-12-01] MEDS ORDERED: MAGNESIUM HYDROXIDE SUSP 30 ML UDC PO PRN (09:31)
[2023-12-01] MEDS: fentaNYL citrate PF 100 MCG/2 ML VIAL IV PRN (09:40)
--- NOTE | 2023-12-01 09:42 | Operative Report ---
Post Operative Report Pre & Post Diagnosis Operation Date: 12/01/23 07:00 Pre-Op Diagnosis: Persistant Postmenopausal Bleeding and Fibroid Uterus Post-Op Diagnosis: Persistant Postmenopausal Bleeding and Fibroid Uterus I identified the patient and participated in the time-out.: Yes Procedure Operation Date: 12/01/23 07:00 Actual Procedures p Laparoscopic Total Hysterectomy and Cystoscopy(Bilateral) - Tylor Georges MD Extensive lysis of adhesion Surgeon Tylor Georges MD Filler Shaker Rose Razo PAC Estimated Blood Loss 10 Findings Consistent with Post-Op Diagnosis Atrophic vulva vagina. No other lesions in the vagina cervix appear grossly normal. Laparoscopic findings show multiple adhesions of omentum to the abdominal wall. Patient has had multiple abdominal surgery in the past. Uterus is about 8 weeks size. The fallopian both fallopian tubes and ovaries are absent from previous upper durations. Both ureters identified prior to surgery Fluids IVF: 1000ml Specimens Uterus and cervix Drains None Anesthesia Type General Complications None Indications 69-year-old status post postmenopausal bleeding dilation and curettage with hysteroscopy was unremarkable patient wanted to have a hysterectomy. Description of Procedure FINDINGS: DESCRIPTION OF PROCEDURE: The patient was prepped and draped in normal sterile fashion in the dorsal lithotomy position. Zacarias catheter was placed without difficulty. An [employer] uterine manipulator was placed in the uterus to help with colpotomy. Attention was paid to the abdominal part of the procedure where a supraumbilical incision was made and carried down to the fascia. Dick was used to grab the fascia. Veress needle was introduced into the abdomen at a 45-degree angle while tenting up the abdomen. Intra-abdominal placement was confirmed with a water-filled syringe. A water drop and suction test was performed. The abdomen was insufflated with CO2 gas. The Veress needle was removed and a 5 mm non bladed trocar was attached to a laparoscope was introduced into the abdomen under direct visualization. This was a non bladed trocar. Once inside the abdomen, laparoscope was repositioned. Inspection of the abdomen shows the findings as dictated above. Three more accessory ports were placed, two 5 mm accessory ports were placed in the lower abdomen on the contralateral side, in addition, an 11 mm trocar was placed on the left upper quadrant. General inspection of the abdomen and pelvis was performed as dictated above. There were several adhesion of omentum to the anterior abdominal wall from previous surgeries.. This omentum was examined. Traction and countertraction was used to dissect the adhesions from the abdominal wall no electrocautery was used for the dissection. There was good hemostasis. The findings of the abdomen is as dictated above.. LigaSure was passed through the left accessory port. The fallopian tube was identified and grabbed 4 cm from the cornua of the uterus with the LigaSure and transected. This was followed by opening of the left anterior leaf of the broad ligament. This allowed for fenestration of the posterior left broad ligament. The mid-section of the left fallopian tube, utero-ovarian and meso-ovarian pedicles were transected as well. Same procedure was performed on the contralateral side. The anterior broad ligament dissection was carried to the mid-section of the vesicouterine peritoneum over the bladder using the Harmonic scalpel. Same procedure was carried out on the contralateral side. The posterior broad ligament peritoneum was carefully dissected also from both sides over the uterosacral arch in order to displace the ureters laterally. Using traction and countertraction, the [place] retractor and irrigation probe was used to further dissect the bladder off the lower segment of the uterus. Bladder pillars and pubovesical fascia was dissected as well. Harmonic scalpel was used to obtain hemostasis where needed. Uterine manipulator was now palpable over the vaginal tissue. The right uterine pedicles were skeletonized and coagulated with the LigaSure. Good hemostasis was obtained. Same procedure was performed on the contralateral side. Cardinal ligaments were transected on both sides. Once good hemostasis was obtained, colpotomy was performed using the LigaSure hook from both sides. Uterus was removed through the vagina while still attached to the uterine manipulator. The bulb was attached to the uterine manipulator was reinserted into the vagina to establish pneumoperitoneum. As stated above the patient had had bilateral salpingo-oophorectomy in the past. EndoStitch closure device was passed through the 11 mm port on the left. Using the [place] grasper for traction, colpotomy closure was performed. The uterosacral ligaments incorporated into the closure in order to decrease the risk of prolapse. Lapro ties were used with the EndoStitch. The 11-mm trocar site was closed with a Amado-Huerta under direct visualization. Attention was paid to the cystoscopy part of the procedure where a cystoscope was introduced into the bladder. There are no sutures seen in the bladder. There were no gross blood seen in the bladder as well. The bubble sign is noted showing the bladder was a close cavity. Both ureters were seen and there was efflux from both uterus. The skin incisions are closed with Dermabond, except for the 11-mm trocar site, which was closed with 4-0 Monocryl. The patient was returned to recovery in stable condition. Inspection of the vagina shows the vaginal cuff was intact. All instruments were removed from the vagina and the bladder and accounted for x2. I attest to the content of the Intraoperative Record and any orders documented therein. Any exceptions are noted below.\ No qualified resident was available .Filler Shaker was necessary for retraction and manipulation of instruments in order to provide for a safe operation
[2023-12-01] MEDS: HYDROmorphone INJ 1 MG/ML SYRINGE IV PRN (10:00)
--- NOTE | 2023-12-01 10:46 | Anesthesiology Progress Note ---
Date of Service December 01, 2023 Anesthesia Post Procedure Vital Signs Vital Signs: Temp Pulse Pulse Resp BP Pulse Ox O2 Del Method 12/01/23 10:30 36.4 C L 75 14 143/74 H 92 Room Air 12/01/23 10:20 75 14 143/74 H 92 Room Air 12/01/23 10:10 77 14 124/58 L 98 Nasal Cannula 12/01/23 10:00 81 20 139/79 96 Nasal Cannula 12/01/23 09:50 79 14 158/63 H 98 Nasal Cannula 12/01/23 09:40 79 18 165/90 H 96 Nasal Cannula 12/01/23 09:30 76 16 139/77 97 Nasal Cannula 12/01/23 09:23 36.2 C L 79 16 147/79 H 97 Nasal Cannula 12/01/23 05:56 Room Air 12/01/23 05:54 71 20 142/69 H 99 Room Air 12/01/23 05:45 36.6 C 76 20 174/80 H 99 Room Air O2 Flow Rate 12/01/23 10:30 12/01/23 10:20 12/01/23 10:10 3 12/01/23 10:00 3 12/01/23 09:50 3 12/01/23 09:40 3 12/01/23 09:30 3 12/01/23 09:23 3 12/01/23 05:56 12/01/23 05:54 12/01/23 05:45 Pain Intensity Abdomen: Pain Intensity: 5 Transfer of Care Handoff Completed per policy Notes Mental Status: alert / awake / arousable Patient Amnestic to Procedure: Yes Nausea / Vomiting: adequately controlled Pain: adequately controlled Airway Patency, RR, SpO2: stable & adequate BP & HR: stable & adequate Hydration State: stable & adequate Anesthetic Complications: no major complications apparent
[2023-12-01] MEDS: oxyCODONE/ACETAMINOPHEN 5mg/325mg TAB PO PRN (11:14)
--- OUTSIDE RECORDS SUMMARY | 2023-12-01 12:37 | External Medical Summary | Summary of Care ---
Author Name Unknown Organization [facility] Address [address] [place] [address] Phone [phone] Care Team Providers Care Packaging Specialist Name Role Phone Madelynsergey Fabienne Lake PA-C Primary Care Provider [phone] Reason for Referral * Ancillary Services (Within 30 days (routine)) - Authorized Specialty Diagnoses / Procedures Referred By Kj pathak Referred To Contact Gastroenterology Diagnoses Screen for colon cancer Lesa Ashton DO [address] [place] [address] Referral ID Status Reason Start Date Expiration Date Visits Requested Visits Authorized [id number] Authorized Ancillary Services Required 10/30/[phone] Question Answer Referral Priority Within 30 days (routine) Where should this appointment be scheduled? [facility] Comments ALERT: Do not order for pediatric patients (18 years or younger). Cancel off screen and order PEDS GASTROENTEROLOGY CONSULT (Type: 1 visit only-Evaluate and Treat) The following Pt. Instructions are available: - Gastro Colonoscopy Prep Instructions [[id number]] - Gastro Colonoscopy Prep Instructions (Belarusian Version) [[id number]] Go to the Pt. Instructions section within the Visit Navigator to access. Colonoscopy ASGE Guidelines: Postadenoma resection: 1-2 tubular adenomas of less than 1 cm (5 yr intervals) ADDITIONAL INFORMATION 1. Is the patient on Coumadin? No 2. Is the patient on Pradaxa? No * Evaluate & Treat - Unlimited Visits (Within 30 days (routine)) - Authorized Specialty Diagnoses / Procedures Referred By Kj pathak Referred To Contact Gastroenterology Diagnoses Other acute gastritis without hemorrhage Lesa Ashton DO [address] [place] [id number] Referral ID Status Reason Start Date Expiration Date Visits Requested Visits Authorized [id number] Authorized Specialty Services Required 10/30/[phone] Question Answer Referral Priority Within 30 days (routine) Where should this appointment be scheduled? [facility] For what condition is the patient being referred? All Gastro Conditions Comments Abdominal pain after covid and paxlovid, gastritis on CT better with PPI, pt requests GI referral Reason for Visit * Reason Comments Emergency Department Follow-Up Encounter Details Date Type Department Care Team (Latest Contact Info) Description 10/30/2023 11:00 AM EDT Office Visit Family Practice Stacie Gann [place] [address] [facility] [place] [address] Lesa Ashton DO [address] [facility] [place] [address] Other acute gastritis without hemorrhage*; COVID-19 virus infection; Screening for cardiovascular condition; Screen for colon cancer Allergies Active Allergy Reactions Criticality Noted Date Comments Mercury 05/10/2013 Shellfish Allergy Edema Other,Rash High 04/09/2014 Thimerosal (Thiomersal) 05/10/2013 Other reaction(s): swelling Mercurial Derivatives Edema Other 03/09/2006 Generalized body documented as of this encounter (statuses as of 11/13/2023) Medications Medication Sig Dispensed Refills Start Date End Date Status WOMENS MULTIVITAMIN PLUS PO TABS 1 daily Active Calcium Carb-Cholecalcifer ol 1000-800 MG-UNIT Oral Tablet 3 daily 02/15/2018 Active Claritin 10 MG Oral Tablet Take by mouth. As needed Active Fluticasone Propionate 50 MCG/ACT Nasal Suspension (Flonase)Indicatio ns:Tinnitus of left ear,Dysfunction of left eustachian tube Administer 2 Sprays into each nostril in the morning. 16 g 2 08/26/2022 Active Ibuprofen 600 MG Oral Tablet (Motrin) Take 1 Tablet by mouth in the morning and 1 Tablet at noon and 1 Tablet before bedtime. With meals.. 30 Tablet 11/03/2022 Active Estradiol 0.5 MG Oral Tablet (Estrace) Take 1 Tablet by mouth in the morning. Every other day take 2 tablets by mouth in the morning. 60 Tablet 6 05/03/2023 Active Ventolin HFA 108 (90 Base) MCG/ACT Inhalation Aerosol SolutionIndication s:Bronchitis, complicated INHALE BY MOUTH 2 PUFFS EVERY 4 HOURS NEEDED FOR WHEEZING. 18 g 3 05/24/2023 Active medroxyPROGESTERon e Acetate 2.5 MG Oral Tablet (Provera)Indicatio ns:Menopause,Hot flashes TAKE 1 TABLET BY MOUTH EVERY DAY IN THE MORNING 90 Tablet 10/17/2023 Active Omeprazole 40 MG Oral Capsule Delayed Release (PriLOSEC) Take 1 Capsule by mouth in the morning. 10/25/2023 Active Amoxicillin-Pot Clavulanate 875-125 MG Oral Tablet (Augmentin) Take 1 Tablet by mouth in the morning and 1 Tablet before bedtime. 06/01/2023 4 Discontinue d(Medicatio n List Clean Up) Doxycycline Hyclate 100 MG Oral Capsule Take 1 Capsule by mouth in the morning and 1 Capsule before bedtime. Until gone.. 06/01/2023 4 Discontinue d(Medicatio n List Clean Up) predniSONE 10 MG Oral Tablet (Deltasone)Indicat ions:Pneumonia due to infectious organism, unspecified laterality, unspecified part of lung Take 3 tabs for 3 days, 2 tabs for 3 days, 1 tabs for 3 days then stop 18 Tablet 06/01/2023 4 Discontinue d(Medicatio n List Clean Up) Magnesium Citrate Oral Solution Take 296 ml solution 5 PM the night before surgery 300 mL 10/19/2023 4 Discontinue d(Medicatio n List Clean Up) Hospital, Clinic, or Other Facility Administered Medication Ordered Dose Route Frequency Start Date End Date Status Albuterol Sulfate (Proventil) (5 MG/ML) 0.5% *conc* inhalation solution 2.5 mgIndications:History of tobacco abuse,COPD, severity to be determined (HCC) 2.5 mg NEBULIZER PRN 06/19/2023 06/18/2024 Active Albuterol Sulfate (Proventil) (2.5 MG/3ML) 0.083% inhalation solution 2.5 mgIndications:History of tobacco abuse,COPD, severity to be determined (HCC) 2.5 mg NEBULIZER PRN 06/19/2023 06/18/2024 Active documented as of this encounter (statuses as of 11/13/2023) Active Problems Problem Noted Date Diagnosed Date Primary osteoarthritis of both hands 10/10/2017 Chronic left shoulder pain 09/08/2017 Other osteoporosis without current pathological fracture 04/19/2007 Overview: ICD-10 update of inactive term Generalized osteoarthritis Overview: wrists and ankles 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 [facility] this [facility] (statuses as of 11/13/2023) Resolved Problems Problem Noted Date Diagnosed Date Resolved Date Malnutrition of moderate degree 05/12/2020 10/23/2021 documented as of this encounter (statuses as of 11/13/2023) Immunizations Name Administration Dates Next Due COVID-19 mRNA, LNP-s, No Pre serve, 2-Dose Series ([employer]) 07/10/2021,11/06/2020,03/28/2020,03/07 COVID-19, LNP-s, No Preserve , Kenny-sucrose, Ages 12+ (Pfizer) 06/09/2021 COVID-19, MRNA-LNP, 23-24, P F, 30 MCG/0.3 mL, 12 YRS AND ABOVE, IM (PFIZER-Comirnaty) 11/21/2022 Pneumococcal Conjugate Vacci ne, 20-valent ([id number]) 11/15/2022 Pneumococcal Polysaccharide PPV23 (Pneumovax) 08/14/2012 Seasonal Influenza Vac., MDV , IM, 0.5 mL (Fluzone) 12/15/2014,12/16/2013 Seasonal Influenza, PF, 6 M & above, IM , (FluLaval or Fluzone) 10/16/2019,12/08/2018,02/15/2018,03/16 Seasonal Influenza, Quadriva lent Hd (Fluzone Hd) 11/15/2022,11/09/2021 Seasonal Influenza, Quadriva lent Hd, 65+ Yrs 10/27/2020 TDAP (age 10 and older)(Boostrix) 12/21/2020 documented as of this encounter Social History Tobacco Use Types Packs/Day Years Used Date Smoking Tobacco: Every Day Cigarettes 1 50.4 Started: 06/18/1973 Smokeless Tobacco: Never Comments:1 ppd smoker 4. Alcohol Use Standard Drinks/Week Comments Yes 0 (1 standard drink = 0.6 oz pur e alcohol) 3 glasses of wine per night PHQ-2 Answer Date Recorded PHQ Adult Total Score 0 06/01/2023 Hunger Vital Sign Answer Date Recorded Within the past 12 months, y ou worried that your food would run out before you got the money to buy more. Never true 06/01/19 24 Within the past 12 months, t he food you bought just didn't last and you didn't have money to get more. Never true 06/01/2023 Childcare Answer Date Recorded Do you feel overwhelmed with taking care of a child, family member or friend? No 06/01/2023 Does your family need help f inding childcare? (Household - for ages 0-17 years) Not on file 06/01/2023 Clothing Answer Date Recorded Have you been unable to get clothing when it was really needed? No 06/01/2023 Is your family able to get c lothes or diapers when needed? (Household - for ages 0-17 years) Not on file 06/01/2023 Personal Safety Answer Date Recorded Do you feel unsafe or have concerns for your saf ety? No 06/01/2023 Do you have concerns for you r family's safety? (Household - for ages 0-17 years) Not on file 06/01/2023 Utilities Answer Date Recorded Do you have trouble paying y our heating, water, or electric bill? No 06/01/2023 Is your family able to pay t he heat, water, or electric bill? (Household - for ages 0-17 years) Not on file 06/01/2023 Does your family have access to good internet? (Household - for ages 0-17 years) Not on file 06/01/2023 Employment Status Answer Date Recorded Are you unemployed or without regular income? No 06/01/2023 Does the household have a re gular source of income? (Household - for ages 0-17 years) Not on file 06/01/2023 Social Connections Answer Date Recorded How often do you feel lonely or isolated from th ose around you? Never 06/01/2023 Financial Resource Strain Answer Date R ecorded Do you have any trouble payi ng for your medications, or do you think you might in the future? No 06/01/2023 Does your family have troubl e paying for medicine? (Household - for ages 0-17 years) Not on file 06/01/2023 Transportation Needs Answer Date Record ed READ ONLY Do you have troubl e getting a ride to medical visits or work? Never True 06/01/2023 Does your family have a hard time getting a ride to doctors visits? (Household - for ages 0-17 years) Not on file 06/01/2023 Has lack of transportation k ept you from medical appointments, meetings, work, or from getting things needed for daily living? Check all that apply. (Adult - for ages 18 years and over) Not on file 06/01/2023 Do you (or your family) have trouble finding or paying for a ride (transportation)? (Household - for ages 0-17 years) Not on file 06/01/2023 Housing Stability Answer Date Recorded Do you currently live in a s helter or have no steady place to sleep at night? No 06/01/2023 READ ONLY Do you think you a re at risk of becoming homeless? No 06/01/2023 Does your family worry about paying for your home or becoming homeless? (Household - for ages 0-17 years) Not on file 0 06/01/2023 Are you homeless or worried that you might be in the future? (Adult - for ages 18 years and over) Not on file Are you (or your family) eboni eless or worried that you might be in the future? (Household - for ages 0-17 years) Not on file Food Insecurity Answer Date Recorded Do you need food for this week? No 06/01/2023 Are you able to get enough f ood for your family? (Household - for ages 0-17 years) Not on file 06/01/2023 Does your family need food t his week? (Household - for ages 0-17 years) Not on file 06/01/2023 Do you always have enough fo od for your family? (Household - for ages 0-17 years) Not on file 06/01/2023 Sex and Gender Information Value Date Recorded Sex Assigned at Not on file Gender Identity Not on file Sexual Orientation Not on file Job Start Date Occupation Industry Not on file Not on file Not on file documented as of this encounter Last Filed Vital Signs Vital Sign Reading Time Taken Comments Blood Pressure 106/60 10/30/2023 11:01 AM EDT Pulse 80 10/30/2023 11:01 AM EDT Temperature 36.6 C (97.8 F) 10/30/2023 11:01 AM E DT Respiratory Rate 16 10/30/2023 11:01 AM EDT Oxygen Saturation 100% 10/30/2023 11:01 AM EDT Inhaled Oxygen Concentration - - Weight 41.6 kg (91 lb 12.8 oz) 10/30/2023 11:01 AM EDT Height - - Body Mass Index 17.93 09/27/2023 10:11 AM EDT documented in this encounter Progress Notes * Lesa Ashton, DO - 10/30/2023 11:17 AM EDT Subjective: Valeria Jimenez is a 68 year old female. Chief Complaint Patient presents with Emergency Department Follow-Up HPI: Valeria Jimenez presents for ED follow up. Medications & HM reviewed. Hospital records, labs, studies, and discharge instructions reviewed with patient Had covid, took paxlovid, then had abdominal pain, went to ED, gastritis on CT, on PPI, would like referral for GI. 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 medroxyPROGESTERone Acetate 2.5 MG Oral Tablet (Provera) TAKE 1 TABLET BY MOUTH EVERY DAY IN THE MORNING 90 Tablet 0 Ventolin HFA 108 (90 Base) MCG/ACT Inhalation Aerosol Solution INHALE BY MOUTH 2 PUFFS EVERY 4 HOURS NEEDED FOR WHEEZING. 18 g 3 Estradiol 0.5 MG Oral Tablet (Estrace) Take 1 Tablet by mouth in the morning. Every other day take 2 tablets by mouth in the morning. 60 Tablet 6 Ibuprofen 600 MG Oral Tablet (Motrin) Take 1 Tablet by mouth in the morning and 1 Tablet at noon and 1 Tablet before bedtime. With meals.. 30 Tablet 0 Fluticasone Propionate 50 MCG/ACT Nasal Suspension (Flonase) Administer 2 Sprays into each nostril in the morning. 16 g 2 Claritin 10 MG Oral Tablet Take by mouth. As needed Calcium Carb-Cholecalciferol 1000-800 MG-UNIT Oral Tablet 3 daily WOMENS MULTIVITAMIN PLUS PO TABS 1 daily methylPREDNISolone 4 MG Oral Tablet Therapy Pack (Medrol Dosepack) follow package directions 21 Tablet 0 Current Facility-Administered Medications Medication Dose Route Frequency Provider Last Rate Last Admin Albuterol Sulfate (Proventil) (2.5 MG/3ML) 0.083% inhalation solution 2.5 mg 2.5 mg Nebulizer PRSatnam Hodge MD Albuterol Sulfate (Proventil) (5 MG/ML) 0.5% *conc* inhalation solution 2.5 mg 2.5 mg Nebulizer Satnam Yung MD Review of patient's allergies indicates: Allergen Reactions Shellfish Allergy Edema Other and Rash Mercury Thimerosal (Thiomersal) Other reaction(s): swelling Thimerosal [Mercurial Derivatives] Edema Other Generalized body Objective: BP 106/60 | Pulse 80 | Temp 36.6 C (97.8 F) (Tympanic) | Resp 16 | Wt 41.6 kg (91 lb 12.8 oz) |LMP (LMP Unknown) | SpO2 100% | BMI 17.93 kg/m | BSA 1.33 m Physical Exam: General: alert, healthy, and no distress Head: Normocephalic, No masses, lesions, tenderness or abnormalities Eye Exam: PERRLA, extraocular movements intact, conjunctiva are pink and non- injected, sclera clear Ears: External ears normal, Canals clear, TM's Normal Oropharynx: no exudate, no erythema, lips, buccal mucosa, and tongue normal, and mucous membranes are moist Neck: supple, no adenopathy, no bruits, thyroid normal size, non-tender, without nodularity Lymph: no palpable lymphadenopathy Heart: regular rate & rhythm, no murmur, and no gallops Lungs: chest symmetric with normal AP diameter, no chest deformities noted, no chest wall tenderness, lungs clear to auscultation Pulses: carotid=2/4 w/o bruits Abdomen: abdomen soft, non-tender, normal bowel sounds, and no masses or organomegaly Extremities: less than 2 second capillary refill, no joint deformities, effusion, or inflammation ASSESSMENT/PLAN: Other acute gastritis without hemorrhage (Primary) - ADULT GASTROENTEROLOGY REFERRAL OP COVID-19 virus infection Screening for cardiovascular condition - LIPID PANEL WITH DIRECT LDL IF TG IS HIGH; Future; Expected date: 10/30/2023 Screen for colon cancer - COLONOSCOPY, GI REFERRAL OP 20 min spent with patient, reviewing history, performing physical exam, reviewing labs, studies, specialist OVNs, and reports, educating and coordinating care, discussing treatment Lesa Ashton DO documented in this encounter Nursing Notes * Gali Zamora LPN - 10/30/2023 10:55 AM EDT Valeria Macey Barbara presents for ED follow up. Medications & HM reviewed. documented in this encounter Plan of Treatment Scheduled Orders Name Type Priority Associated Diagnoses Orde r Schedule LIPID PANEL WITH DIRECT LDL IF TG IS HIGH Lab Routine Screening for cardiovascular condition Expected: 10/30/2023 (Approximate), Expires: 10/29/2024 Scheduled Procedures Name Priority Associated Diagnoses Date/Ti me COLONOSCOPY FLEXIBLE PROXIMA L DIAGNOSTIC Recall Family history of colorectal cancer Scheduled Referrals Name Type Priority Associated Diagnoses Order Schedule ADULT GASTROENTEROLOGY REFERRAL OP Referral Within 30 days (routine) Other acute gastritis without hemorrhage Ordered: 10/30/2023 COLONOSCOPY, GI REFERRAL OP Referral Within 30 days (routine) Screen for colon cancer Ordered: 10/30/2023 Health Maintenance Due Date Last Done Comments Cologuard 2000 Fecal Occult Blood Test 2000 Sigmoidoscopy 2000 Lung Cancer Screening 2005 Zoster Vaccines (1 of 2) 2005 Colonoscopy 12/22/2020 12/23/2015, 12/23/2015 Colorectal Cancer Screening 12/22/2020 Adult Wellness Visit 2021 *BISPHONATE OR OTHER ACCEPTABLE MEDICATION NEEDED FOR OSTEOPOROSIS (REFER TO SMARTSET #1146) 06/04/2022 Lipid Panel 02/20/2023 02/20/2018, 05/03/2013 Mammogram 08/31/2023 08/30/2022, 08/07, 06/08/2017, Additional history exists COVID-19 Vaccine ( season) 2023 11/21/2022, 07/10/2021, 06/09/2021, Additional history exists Influenza Vaccine (FLU shot) (#1) 2023 11/15/2022, 11/09/2021, 10/27/2020, Additional history exists Depression Screening 05/31/2024 06/01/2023 DXA Scan 08/30/2024 08/30/2022, 08/07, 02/28/2018, Additional history exists VITAMIN D LEVEL ONCE IN A LIFETIME-USE SMARTSET# 35562 Completed 05/03/2013 RETIRED - COLONOSCOPY-EVERY 5 YRS AGES 18-100 Discontinued 12/23/2015, 12/23/2015, 01/21/2012 (Done elsewhere) Pap Smear Discontinued 05/31/2017, 11/07, 03/20/2012, Additional history exists Pneumococcal Vaccine: 65+ Years Completed 11/15/2022, 08/14/2012 HPV (Gardasil) Vaccine Aged Out No lo nger eligible based on patient's age to complete this topic Hepatitis B Vaccine Aged Out No longe r eligible based on patient's age to complete this topic MENINGOCOCCAL (MENACTRA/MENVEO) Aged Out No longer eligible based on patient's age to complete this topic documented as of this encounter Medical Devices Not on filedocumented as of this encounter Visit Diagnoses Diagnosis Other acute gastritis without hemorrhage- Primary COVID-19 virus infection Screening for cardiovascular condition Screening for other and unspecified cardiovascular conditions Screen for colon cancer Special screening for malignant neoplasms, colon documented in this encounter Care Teams Packaging Specialist Relationship Specialty Start Date End Date Fabienne Emanuel PA-C [address] [place] [address] PCP - General Physician Executive Associate 08/20/23 documented as of this encounter"
--- OUTSIDE RECORDS SUMMARY | 2023-12-01 12:37 | External Medical Summary | Summary of Care ---
Author Name Unknown Organization [facility] Address [address] [facility] [address] Phone [phone] Care Team Providers Care Testing Coordinator Name Role Phone Madelynsergey Fabienne Lake PA-C Primary Care Provider [phone] Encounter Details Date Type Department Care Team ([facility] st Contact Info) Description 11/27/2023 Telephone [facility] [address] [place] [address] Tylor Georges MD [address] [place] [address] Allergies Active Allergy Reactions Criticality Noted Date Comments Mercury 05/10/2013 Shellfish Allergy Edema Other,Rash High 04/09/2014 Thimerosal (Thiomersal) 05/10/2013 Other reaction(s): swelling Mercurial Derivatives Edema Other 03/09/2006 Generalized body documented as of this encounter (statuses as of 11/27/2023) Medications Medication Sig Dispensed Refills Start Date End Date Status WOMENS MULTIVITAMIN PLUS PO TABS 1 daily Active Calcium Carb-Cholecalciferol 1000-800 MG-UNIT Oral Tablet 3 daily 02/15/2018 [...] FOR WHEEZING. 18 g 3 05/24/2023 Active medroxyPROGESTERone Acetate 2.5 MG Oral Tablet (Provera)Indications :Menopause,Hot flashes TAKE 1 TABLET BY MOUTH EVERY DAY IN THE MORNING 90 Tablet 10/17/2023 Active Omeprazole 40 MG Oral Capsule Delayed Release (PriLOSEC) Take 1 Capsule by mouth in the morning. 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 Overview: At [facility] documented as of this encounter (statuses as of 11/27/2023) Resolved Problems Problem Noted Date Diagnosed Date Resolved Date Malnutrition of moderate degree 05/12/2020 10/23/2021 documented as of this encounter (statuses as of 11/27/2023) Immunizations Name Administration Dates Next Due COVID-19 mRNA, LNP-s, No Pre serve, 2-Dose Series ([employer]) 07/10/2021,11/06/2020,03/28/2020,03/07 COVID-19, LNP-s, No Preserve , Kenny-sucrose, Ages 12+ (Pfizer) 06/09/2021 COVID-19, MRNA-LNP, 23-24, P F, 30 MCG/0.3 mL, 12 YRS AND ABOVE, IM (PFIZER-Comirnaty) 11/21/2022 Pneumococcal Conjugate Vacci ne, 20-valent ([id number]) 11/15/2022 Pneumococcal Polysaccharide PPV23 (Pneumovax) 08/14/2012 Seasonal [...] Telephone Encounter - Charu Alberto LPN - 11/27/2023 9:19 AM EDT Pt calling in asking what she is suppose to use for bowl prep for her upcoming surgery. Per Dr Georges Magnesium Citrate 10oz (296ml) at 1700 ib day prior to surgery. Pt verbalized understanding. documented in this encounter Plan of Treatment [...] D LEVEL ONCE IN A LIFETIME-USE SMARTSET# [id number] Completed 05/03/2013 RETIRED - COLONOSCOPY-EVERY 5 YRS [...] filedocumented as of this encounter Care Teams Testing Coordinator Relationship Specialty Start Date End Date AdelfoMay Jaya, PAWEL [address] [place] [address] PCP - General Physician Bowling Alley Manager 08/20/23 documented as of this encounter
--- OUTSIDE RECORDS SUMMARY | 2023-12-01 12:37 | External Medical Summary | Summary of Care ---
Author Name Unknown Organization [facility] Address [address] [place] [address] Phone [phone] Care Team Providers Care Trust And Estates Attorney Name Role Phone Fabienne Emanuel Jaya ARMAS Primary Care Provider [phone] Encounter Details Date Type Department Care Team ([facility] Contact Info) Description 10/19/2023 Result Scan Unspecified Department <No scans attached> Allergies Active Allergy Reactions Criticality Noted Date Comments Mercury 05/10/2013 Shellfish Allergy Edema Other,Rash High 04/09/2014 Thimerosal (Thiomersal) 05/10/2013 Other reaction(s): swelling Mercurial Derivatives Edema Other 03/09/2006 Generalized body documented as of this encounter (statuses as of 11/15/2023) Medications Medication Sig Dispensed Refills Start Date [...] IN THE MORNING 90 Tablet 10/17/2023 Active Hospital, Clinic, or Other Facility Administered [...] as of this encounter (statuses as of 11/15/2023) Active Problems Problem Noted Date Diagnosed Date Primary osteoarthritis of both hands 10/10/2017 Chronic left shoulder pain 09/08/2017 Other osteoporosis without current pathological fracture 04/19/2007 Overview: ICD-10 update of inactive term Generalized osteoarthritis Overview: wrists and ankles 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 Overview: At [facility] documented as of this encounter (statuses as of 11/15/2023) Resolved Problems Problem Noted Date Diagnosed Date Resolved Date Malnutrition of moderate degree 05/12/2020 10/23/2021 documented as of this encounter (statuses as of 11/15/2023) Immunizations Name Administration Dates Next Due COVID-19 mRNA, LNP-s, No Pre serve, 2-Dose Series ([employer]) 07/10/2021,11/06/2020,03/28/2020,03/07 COVID-19, LNP-s, No Preserve , Kenny-sucrose, Ages 12+ (NebuAd) 06/09/2021 COVID-19, MRNA-LNP, 23-24, P F, 30 MCG/0.3 mL, 12 YRS AND ABOVE, IM (PFIZER-Comirnaty) 11/21/2022 Pneumococcal Conjugate Vacci ne, 20-valent ([id number]) 11/15/2022 Pneumococcal Polysaccharide PPV23 (Pneumovax) 08/14/2012 Seasonal [...] on file documented as of this encounter Plan of Treatment Scheduled Procedures [...] D LEVEL ONCE IN A LIFETIME-USE SMARTSET# 50109 Completed 05/03/2013 RETIRED - COLONOSCOPY-EVERY 5 YRS [...] Not on filedocumented as of this encounter Procedures Procedure Name Priority Date/Time Associated Diagnosis Comments PROCEDURE SCANNED RESULT 10/19/2023 documented in this encounter Results * PROCEDURE SCANNED RESULT (10/19/2023) 10/19/2023 No Physician Data Unknown SURGERY documented in this encounter Care Teams Trust And Estates Attorney Relationship Specialty Start Date End Date Adelfo May PAWEL [address] [place] [address] PCP - General Physician Home Mission Worker 08/20/23 documented as of this encounter
--- OUTSIDE RECORDS SUMMARY | 2023-12-01 12:37 | External Medical Summary | Summary of Care ---
Author Name Unknown Organization [facility] Address [address] [place] [address] Phone [phone] Care Team Providers Care Customer Support Specialist Name Role Phone Madelynsergey Fabienne Lake PA-C Primary Care Provider [phone] Reason for Visit * Reason Onset Date Comments After Hours Call 11/02/2023 Encounter Details Date Type Department Care Team (Late st Contact Info) Description 11/02/[address] [facility] [address] [place] [address] Mignon Blair MD [address] [place] [address] After Hours Call Allergies Active Allergy Reactions Criticality Noted Date Comments Mercury 05/10/2013 Shellfish Allergy Edema Other,Rash High 04/09/2014 Thimerosal (Thiomersal) 05/10/2013 Other reaction(s): swelling Mercurial Derivatives Edema Other 03/09/2006 Generalized body documented as of this encounter (statuses as of 11/02/2023) Medications Medication Sig Dispensed Refills Start Date [...] as of this encounter (statuses as of 11/02/2023) Active Problems Problem Noted Date Diagnosed Date Primary osteoarthritis of both hands 10/10/2017 Chronic left shoulder pain 09/08/2017 Other osteoporosis without current pathological fracture 04/19/2007 Overview: ICD-10 update of inactive term Generalized osteoarthritis Overview: wrists and ankles 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 Overview: At [facility] documented as of this encounter (statuses as of 11/02/2023) Resolved Problems Problem Noted Date Diagnosed Date Resolved Date Malnutrition of moderate degree 05/12/2020 10/23/2021 documented as of this encounter (statuses as of 11/02/2023) Immunizations Name Administration Dates Next Due COVID-19 mRNA, LNP-s, No Pre serve, 2-Dose Series ([employer]) 07/10/2021,11/06/2020,03/28/2020,03/07 COVID-19, LNP-s, No Preserve , Kenny-sucrose, Ages 12+ (Pfizer) 06/09/2021 COVID-19, MRNA-LNP, 23-24, P F, 30 MCG/0.3 mL, 12 YRS AND ABOVE, IM (PFIZER-Comirnaty) 11/21/2022 Pneumococcal Conjugate Vacci ne, 20-valent ([id number]) 11/15/2022 Pneumococcal Polysaccharide PPV23 (Pneumovax) 08/14/2012 Seasonal Influenza, PF, 6 M & above, IM , (FluLaval or Fluzone) 10/16/2019,12/08/2018,02/15/2018,03/16 Seasonal Influenza, Quadriva lent Hd (Fluzone Hd) 11/15/2022,11/09/2021 Seasonal Influenza, Quadriva lent Hd, 65+ Yrs 10/27/2020 Seasonal Influenza, Trivalen t, (IIV3), with Preserv, (Fluzone) 12/15/2014,12/16/2013 TDAP (age 10 and older)(Boostrix) 12/21/2020 [...] as of this encounter Miscellaneous Notes * Addendum Note - Mignon Blair MD - 11/02/2023 6:51 PM EDTAddended by: MIGNON BLAIR on: 11/02/2023 06:51 PM Modules accepted: Orders * Telephone Encounter - Mignon Blair MD - 11/02/2023 6:22 PM EDT after office hours call Covid positive one week ago Finished 5 days med Sinus congestion, can't breathe due to congestion Advised to nasal spray twice daily , flonase daily Also sending steroid package documented in this encounter Plan of Treatment Upcoming Encounters Date Type Department Care Team (Late st Contact Info) Description 11/15/2023 3:30 PM EDT Office Visit Gynecology/Obstetrics Demetra Nicole [address] [place] [address] Tylor Georges MD [address] [place] [address] Scheduled Procedures Name Priority Associated Diagnoses Date/Ti [...] D LEVEL ONCE IN A LIFETIME-USE SMARTSET# 25659 Completed 05/03/2013 RETIRED - COLONOSCOPY-EVERY 5 YRS [...] filedocumented as of this encounter Care Teams Customer Support Specialist Relationship Specialty Start Date End Date Adelfo Fabienne Jaya, MANOJC [address] [place] [address] PCP - General Physician Sharemilker 08/20/23 documented as of this encounter
--- OUTSIDE RECORDS SUMMARY | 2023-12-01 12:38 | External Medical Summary | Summary of Care ---
Author Name Unknown Organization [facility] Address [address] [place] [address] Phone [phone] Care Team Providers Care Medtronics Technician Name Role Phone Madelynsergey Fabienne Lake PA-C Primary Care Provider [phone] Reason for Visit * Reason Onset Date Comments After Hours Call 11/02/2023 Encounter Details Date Type Department Care Team (Late st Contact Info) Description 11/02/2023 Telephone [facility] [address] [place] [address] Mignon Blair MD [address] [place] [address] After Hours Call Allergies Active [...] by mouth in the morning. 10/25/2023 Active Hospital, Clinic, or Other Facility Administered [...] mRNA, LNP-s, No Pre serve, 2-Dose Series ([employer]) 07/10/2021,11/06/2020,03/28/2020,03/07 COVID-19, LNP-s, No Preserve , Kenny-sucrose, Ages 12+ (Pfizer) 06/09/2021 COVID-19, MRNA-LNP, 23-24, P F, 30 MCG/0.3 mL, 12 YRS AND ABOVE, IM (PFIZER-Comirnaty) 11/21/2022 Pneumococcal Conjugate Vacci ne, 20-valent ([id number]) 11/15/2022 Pneumococcal Polysaccharide PPV23 (Pneumovax) 08/14/2012 Seasonal [...] encounter Miscellaneous Notes * Telephone Encounter - Mignon Blair MD - 11/02/2023 6:22 PM EDT after office hours call Covid positive at home test Sinus congestion, can't breathe due to congestion documented in this encounter Plan of Treatment Upcoming Encounters Date Type Department Care Team (Late st Contact Info) Description 11/15/2023 3:30 PM EDT Office Visit Gynecology/Obstetrics Demetra Nicole [address] [place] [address] Tylor Georges MD [address] [place] [address] Scheduled Procedures Name Priority Associated Diagnoses Date/Ti [...] D LEVEL ONCE IN A LIFETIME-USE SMARTSET# [id number] Completed 05/03/2013 RETIRED - COLONOSCOPY-EVERY 5 YRS [...] filedocumented as of this encounter Care Teams Medtronics Technician Relationship Specialty Start Date End Date Adelfo May Jaya, MANOJC [address] [place] [address] PCP - General Physician Lean Leader 08/20/23 documented as of this encounter
[2023-12-01 17:13] VITALS: O2SAT 98
[2023-12-01] MEDS ORDERED: NICOTINE 14 MG/24 HR PATCH TD SCH (19:15)
[2023-12-01] MEDS: NICOTINE 14 MG/24 HR PATCH TD SCH (20:19)
[2023-12-02 07:55] VITALS: PULSE 72; RESP 16; TEMP 99
[2023-12-02 08:16] LABS: Basophils # (auto) 0.03 K/uL (0.00-0.20); Basophils % (auto) 0.4 %; Eosinophils # (auto) 0.27 K/uL (0.00-0.50); Eosinophils % (auto) 3.5 %; Hematocrit (blood only) 33.7 % (37.0-47.0); Hemoglobin 11.5 g/dl (12.0-16.0); Immature Granulocytes # (auto) 0.02 K/uL (0.01-0.20); Immature Granulocytes % (auto) 0.3 %; Lymphocytes # (auto) 1.79 K/uL (1.20-3.40); Lymphocytes % (auto) 23.4 %; Mean Corpuscular Hgb Conc 34.1 g/dL (32.0-36.0); Mean Corpuscular Volume 96.6 fL (80.0-100.0); Mean Platelet Volume 8.9 fL (9.4-12.4); Monocytes % (auto) 7.8 %; Neutrophils # (auto) 4.94 K/uL (1.40-6.50); Neutrophils % (auto) 64.6 %; Platelet Count 229 K/uL (130-400); RDW Coefficient of Variation 14.1 % (11.5-14.5); RDW Standard Deviation 49.4 fL (36.4-46.3); Red Blood Count 3.49 M/uL (4.20-5.40); White Blood Count 7.65 K/ul (4.8-10.8)
[2023-12-02 08:24] LABS: BUN Creatinine Ratio 12.8 (10-20); Calcium 8.6 mg/dl (8.6-10.3); Creatinine Clr Calc Pharmacy 76.9 ml/min; Potassium 3.7 mmol/L (3.5-5.1)
[2023-12-02] MEDS: SIMETHICONE 80 MG CHEW PO PRN (08:27)
--- OUTSIDE RECORDS SUMMARY | 2023-12-02 08:55 | External Medical Summary | Summary of Care ---
Author Name Unknown Organization [facility] Address [address] [place] [address] Phone [phone] Care Team Providers Care Management Engineer Name Role Phone MadelynFabienne rincon Jaya ARMAS Primary Care Provider [phone] Encounter Details Date Type Department Care Team ([facility] Contact Info) Description 12/01/2023 Result Scan Unspecified Department Tylor Georges MD [address] [place] [address] <No scans attached> Allergies Active Allergy Reactions Criticality Noted Date Comments Mercury 05/10/2013 Shellfish Allergy Edema Other,Rash High 04/09/2014 Thimerosal (Thiomersal) 05/10/2013 Other reaction(s): swelling Mercurial Derivatives Edema Other 03/09/2006 Generalized body documented as of this encounter (statuses as of 12/01/2023) Medications Medication Sig Dispensed Refills Start Date [...] follow package directions 21 Tablet 11/02/2023 Active TO GO magnesium citrate OR Take 296 ml solution 5 PM the night before surgery 1 Each 11/27/2023 Active Hospital, Clinic, or Other Facility Administered [...] as of this encounter (statuses as of 12/01/2023) Active Problems Problem Noted Date Diagnosed Date Primary osteoarthritis of both hands 10/10/2017 Chronic left shoulder pain 09/08/2017 Other osteoporosis without current pathological fracture 04/19/2007 Overview: ICD-10 update of inactive term Generalized osteoarthritis Overview: wrists and ankles 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 Overview: At [facility] documented as of this encounter (statuses as of 12/01/2023) Resolved Problems Problem Noted Date Diagnosed Date Resolved Date Malnutrition of moderate degree 05/12/2020 10/23/2021 documented as of this encounter (statuses as of 12/01/2023) Immunizations Name Administration Dates Next Due COVID-19 mRNA, LNP-s, No Pre serve, 2-Dose Series ([employer]) 07/10/2021,11/06/2020,03/28/2020,03/07 COVID-19, LNP-s, No Preserve , Kenny-sucrose, Ages 12+ (Pfizer) 06/09/2021 COVID-19, MRNA-LNP, 23-24, P F, 30 MCG/0.3 mL, 12 YRS AND ABOVE, IM [facility] 11/21/2022 Pneumococcal Conjugate Vacci ne, 20-valent ([id number]) 11/15/2022 Pneumococcal Polysaccharide PPV23 (Pneumovax) 08/14/2012 Seasonal [...] Date Smoking Tobacco: Every Day Cigarettes 1 50.5 Started: 06/18/1973 Smokeless Tobacco: Never Comments:1 ppd [...] D LEVEL ONCE IN A LIFETIME-USE SMARTSET# 98739 Completed 05/03/2013 RETIRED - COLONOSCOPY-EVERY 5 YRS [...] Procedure Name Priority Date/Time Associated Diagnosis Comments OUTSIDE LAB RESULTS 12/01/2023 documented in this encounter Results * OUTSIDE LAB RESULTS (12/01/2023) 12/01/2023 Tylor Georges MD LABORATORY documented in this encounter Care Teams Management Engineer Relationship Specialty Start Date End Date Adelfo May Jaya, PAWEL [address] [place] [address] PCP - General Physician Airfreight Loading Supervisor 08/20/23 documented as of this encounter
[2023-12-02 10:20] VITALS: BP 133/71
--- NOTE | 2023-12-02 10:29 | Obstetrical Progress Note ---
Date of Service December 02, 2023 Assessment & Plan (1) Postop check: Plan Pt doing well No Complaints d/c home with instructions Physical Exam Constitutional WD/WN, vitals as above Eyes PERRL, conjunctivae normal, anicteric sclerae ENMT external ear and nose normal, oropharynx normal Neck trachea midline, no thyromegaly Respiratory normal respiratory effort, lungs clear to auscultation Cardiovascular RRR, no murmur, no edema Chest (Breasts) normal inspection/palpation of breasts Gastrointestinal (Abdomen) normal bowel sounds, soft, nontender, no hepatosplenomegaly Musculoskeletal no cyanosis or clubbing, extremities motor strength 5/5 Skin + incision (Incision clean,dry and intact) Neurologic patellar DTR's 2+ bilat, sensation intact Psychiatric A+Ox3, euthymic affect Genitourinary no vaginal lesions, no adnexal mass Lymphatic no cervical or axillary lymphadenopathy Results & Data Vital Signs (Past 12 Hours) Vital Signs Temp Pulse Pulse Resp BP BP Pulse Ox 12/02/23 10:18 37.2 C 75 72 16 133/71 122/72 98 12/02/23 07:12 37.2 C 72 16 122/72 12/02/23 04:28 37.3 C 75 14 133/71 12/01/23 23:11 36.6 C 69 16 128/73 O2 Del Method 12/02/23 10:18 12/02/23 07:12 12/02/23 04:28 Room Air 12/01/23 23:11 Room Air
--- NOTE | 2023-12-02 10:30 | Discharge Summary ---
Date of Service December 02, 2023 Admission HPI Per Admitting Provider 68 yo with perisitant postmenopausal bleeding Discharge Data Procedures Performed Operation Date: 12/01/23 07:00 Actual Procedures p Laparoscopic Total Hysterectomy and (Bilateral) - Tylor Georges MD s Cystoscopy(Bilateral) - Tylor Georges MD Hospital Course (1) Postmenopausal bleeding: Plan Post op course was unremarkable and pt is discharges home in stable condition. Discharge instructions including medications,diet, activity and follow up appointments are reviewed with pt. Discharge Instructions Post op course was unremarkable and pt is discharges home in stable condition. Discharge instructions including medications,diet, activity and follow up appointments are reviewed with pt.
== END 2023-12-02 10:55 | disposition home or self-care (01) ==
LOC: PACUINP 05:28 → ASU 05:28 → 4E2 14:00

== ENCOUNTER 2024-06-03 21:08 | Inpatient (IN) ==
[2024-06-03 21:40] LABS: Basophils # (auto) 0.08 K/uL (0.00-0.20); Basophils % (auto) 0.4 %; Eosinophils # (auto) 0.22 K/uL (0.00-0.50); Eosinophils % (auto) 1.2 %; Hematocrit (blood only) 39.8 % (37.0-47.0); Hemoglobin 14.1 g/dl (12.0-16.0); Immature Granulocytes % (auto) 0.6 %; Lymphocytes # (auto) 3.53 K/uL (1.20-3.40); Lymphocytes % (auto) 19.6 %; Mean Corpuscular Hgb Conc 35.4 g/dL (32.0-36.0); Mean Corpuscular Volume 93.2 fL (80.0-100.0); Mean Platelet Volume 8.6 fL (9.4-12.4); Monocytes # (auto) 1.12 K/uL (0.11-0.59); Monocytes % (auto) 6.2 %; Neutrophils # (auto) 12.92 K/uL (1.40-6.50); Platelet Count 327 K/uL (130-400); RDW Coefficient of Variation 13.2 % (11.5-14.5); RDW Standard Deviation 45.1 fL (36.4-46.3); Red Blood Count 4.27 M/uL (4.20-5.40); White Blood Count 17.97 K/ul (4.8-10.8)
--- NOTE | 2024-06-03 21:40 | Emergency Department Note ---
Impression & Plan Fracture, ribs, Contusion of lung, Mucus plugging of bronchi ED Provider Note NAME: DUGLAS FUENTES AGE: 69 SEX: F : 1955 ARRIVES VIA: Walk-In INFORMANT: Patient ED PROVIDER(S): Mustapha Lynch DO CHIEF COMPLAINT: Right-sided chest and abdominal pain HPI: Patient is a 69-year-old female with a past medical history of tobacco abuse, sepsis, pneumonia who presents to the ER following a mechanical fall. Patient was in the bathroom and slipped and fell on her right side into the tub. She denies any head or neck strike. She notes she had x-rays at her PCPs office and question of fracture rib. She notes she has become more short of breath over the past couple days. Does have some right lower abdominal pain. No blood in her pee. No headache or change in vision. No dysuria or, urgency or frequency. No other exacerbating or remitting factors. ADDITIONAL HISTORY OBTAINED: Per HPI Chronic Medical/Social Conditions Affecting Care: Per HPI PAST MEDICAL HISTORY:See Below PAST SURGICAL HISTORY:See Below FAMILY HISTORY:See Below SOCIAL HISTORY:See Below HOME MEDICATIONS:See Below ALLERGIES:See Below VITALS:See Below PHYSICAL EXAMINATION: GENERAL: alert, moderate distress holding her right side HEAD: normal cephalic, atraumatic EYE EXAM: normal conjunctiva, PERRL and EOM's grossly intact OROPHARYNX: no exudate, no erythema, lips, buccal mucosa, and tongue normal and mucous membranes are moist NECK: supple, no nuchal rigidity, no adenopathy, non-tender CHEST:severe pain over the right chest wall LUNGS: clear to auscultation. Normal chest wall mechanics HEART: no murmurs, S1 normal and S2 normal ABDOMEN: abdomen soft, tender in the right flank, normo-active bowel sounds, no masses, no rebound or guarding. PELVIS: stable to compression anteriorly and posteriorly BACK: Back is symmetrical on inspection and there is no deformity, no midline tenderness, no CVA tenderness. UPPER EXTREMITIES: full active and passive range of motion of all joints without tenderness to palpation LOWER EXTREMITIES: full active and passive range of motion of all joints without tenderness to palpation NEURO EXAM: Normal sensorium, cranial nerves II-XII grossly intact, normal speech, no gross weakness of arms, no gross weakness of legs. GCS: 15. MEDICAL DECISION MAKING: Patient is a 69-year-old female who presents ER for the above-stated complaint. IV was established and blood work was obtained. Patient fell about 7 days ago and comes in today for worsening pain. IV was established and blood work was obtained. Labs show leukocytosis 17,000. No significant anemia. BMP with mild hypokalemia. LFTs and bilirubin and lipase was unremarkable. Troponin was negative. CT of the head, cervical spine, chest abdomen pelvis shows 2 rib fractures in combination with likely pulmonary contusions and left lower lobe collapse likely secondary to mucous plugging. Patient was given IV pain medications. IV fluids were given. Patient was updated bedside. Discussed case with the hospitalist for further evaluation management treatment. As the injuries occurred a week ago I did discuss this with our hospitalist as the pulmonary contusions should be improving at this time. There was a small extrapleural hematoma but no anemia and again this occurred 7 days ago and they were agreeable to keeping a watch the patient overnight. Consults/Care Managements Discussions: Per [facility] Triage Nursing notes reviewed. Limited review of prior medical records performed Vital Signs: reviewed and remarkable for hypoxia Differential diagnosis: Differential diagnoses include major intracranial, cervical, spinal, thoracic, abdominal, pelvic and neurologic injury. Fracture, contusion, sprain, strain, laceration, abrasions included as well. ER treatment provided: See below Diagnostics interpreted by me include EKG and cardiac monitoring as listed below: -Cardiac Monitoring: An order was placed for continuous cardiac monitoring. The monitor shows a rate of 90 with sinus rhythm. -ECG: Sinus rhythm rate in the 9 Left axis No PVCs QTc 449 -Laboratory studies:Interpreted by me as stated above in MDM and shown below. Imaging studies: Xrays: As interpreted by me: Portable AP upright 1 view of the chest shows an elevated left hemidiaphragm CTs show: CT chavira scan as described above Procedures:none Critical Care: None Past Med/Surg History Problem List (Updated 06/04/24 @ 00:57 by Mustapha Lynch DO) Mucus plugging of bronchi (Acute) Contusion of lung (Acute) Fracture, ribs (Acute) Postop check Postmenopausal bleeding COVID-19 (Acute) 10/25/23 Tobacco abuse counseling Viral pneumonia Severe sepsis 05/26/23 Elevated lactic acid level (Acute) 05/25/23 Infection due to human metapneumovirus (hMPV) (Acute) 05/25/23 Failure of outpatient treatment (Acute) Leukocytosis (Acute) 05/25/23 Pneumonia (Acute) 05/25/23 SOB (shortness of breath) (Acute) 05/25/23 Encounter for pre-operative examination Left shoulder pain (Acute) Left shoulder pain (Acute) Medical History Hx of shortness of breath 05/2023 - pneumonia Hx of sepsis r/t HMPV History of pneumonia HMPV - 05/2023 - [facility] Hospitalization Osteoarthritis Glaucoma Bilateral Migraine hx Surgical History H/O wrist surgery Right H/O elbow surgery Right Tennis Elbow History of esophagogastroduodenoscopy (EGD) History of colonoscopy H/O bilateral oophorectomy History of section History of appendectomy History of tooth extraction S/P tonsillectomy and adenoidectomy H/O eye surgery Bilateral "Radial Keratotomy" Family History Father Family hx of colon cancer Social History Smoking Status: Current every day smoker Tobacco Type: Cigarettes Cigarettes Per Day: 1 pack; Second Hand Exposure: No; Do You Dip or Chew Tobacco: No; Hx Alcohol Use: Yes Alcohol type: wine Hx Substance Use: No Preferred Language: Tanzanian Communication Ability: Effective Family Psychologist Required: No Beliefs That Will Affect Care: None Current Living Situation: Spouse Feels Safe at Home: Yes Assistive Devices: Glasses Allergies Allergies Allergy/AdvReac Type Severity Reaction Status Date / Time thimerosal Allergy Intermediate Swelling/Redness Verified 06/03/24 22:00 all over Home Meds Home Medications Medication Instructions Recorded Confirmed medroxyprogesterone 2.5 mg tablet 2.5 mg PO QAM 09/05/18 06/03/24 [id number] 8 mg-folic 400 1 tab PO QAM 09/05/18 06/03/24 mcg-K 50 mcg-lutein 300 mcg tablet (Multivitamin Women 50 Plus) estradiol 0.5 mg tablet 0.5 mg PO QAM 05/25/23 06/03/24 acetaminophen 500 mg tablet 500 mg PO DIRECTED PRN Pain 10/17/23 06/03/24 Results & Data (ED) Vital Signs Vital Signs - 24 hr 06/03/24 21:10 06/03/24 21:23 06/03/24 21:27 Temperature 36.5 C Temperature Source Temporal Artery Scan Pulse Rate 109 H 95 H Pulse Rate [Apical] Pulse Rate from SpO2 Sensor Pulse Rhythm Regular Pulse Strength Normal Respiratory Rate 18 Respiratory Effort / Characteristics Non-Labored Spontaneous Respiratory Depth Normal Respiratory Pattern Regular Blood Pressure 123/78 Blood Pressure [Left Arm] Blood Pressure Mean 93 Blood Pressure Mean [Left Arm] Blood Pressure Position Sitting Pulse Oximetry 91 95 Oxygen Delivery Method Room Air Room Air Sepsis Recent Fever Within 48 Hours No Sepsis New/Unexplained Change in Mental Status N/A Sepsis Action Taken by Nursing No Action Required 06/03/24 22:00 06/03/24 22:15 06/03/24 23:00 Temperature Temperature Source Pulse Rate 87 Pulse Rate [Apical] 79 78 Pulse Rate from SpO2 Sensor 87 Pulse Rhythm Pulse Strength Respiratory Rate 18 18 16 Respiratory Effort / Characteristics Non-Labored Spontaneous Non-Labored Spontaneous Respiratory Depth Normal Normal Respiratory Pattern Regular Regular Blood Pressure 120/73 Blood Pressure [Left Arm] 100/67 118/70 Blood Pressure Mean 88 Blood Pressure Mean [Left Arm] 78 86 Blood Pressure Position Pulse Oximetry 97 97 93 Oxygen Delivery Method Room Air Room Air Room Air Sepsis Recent Fever Within 48 Hours Sepsis New/Unexplained Change in Mental Status Sepsis Action Taken by Nursing 06/03/24 23:22 Temperature Temperature Source Pulse Rate Pulse Rate [Apical] Pulse Rate from SpO2 Sensor Pulse Rhythm Pulse Strength Respiratory Rate 22 Respiratory Effort / Characteristics Respiratory Depth Respiratory Pattern Blood Pressure 110/60 Blood Pressure [Left Arm] Blood Pressure Mean 82 Blood Pressure Mean [Left Arm] Blood Pressure Position Pulse Oximetry 93 Oxygen Delivery Method Room Air Sepsis Recent Fever Within 48 Hours Sepsis New/Unexplained Change in Mental Status Sepsis Action Taken by Nursing Laboratory Data 06/03/24 21:22 06/03/24 21:22 Lab Results 06/03/24 06/03/24 Range/Units 21:22 21:44 WBC 17.97 H (4.8-10.8) K/ul RBC 4.27 (4.20-5.40) M/uL Hgb 14.1 (12.0-16.0) g/dl POC Hgb 12.9 (12.0-16.0) g/dl Hct 39.8 (37.0-47.0) % POC Hct 38 (37-47) % MCV 93.2 (80.0-100.0) fL MCH 33.0 (25.0-34.0) pg MCHC 35.4 (32.0-36.0) g/dL RDW Std Deviation 45.1 (36.4-46.3) fL RDW Coeff of Hailey 13.2 (11.5-14.5) % Plt Count 327 (130-400) K/uL MPV 8.6 L (9.4-12.4) fL Immature Gran % (Auto) 0.6 % Neut % (Auto) 72.0 % Lymph % (Auto) 19.6 % Baca % (Auto) 6.2 % Eos % (Auto) 1.2 % Baso % (Auto) 0.4 % Neut # (Auto) 12.92 H (1.40-6.50) K/uL Lymph # (Auto) 3.53 H (1.20-3.40) K/uL [place]aca # (Auto) 1.12 H (0.11-0.59) K/uL Eos # (Auto) 0.22 (0.00-0.50) K/uL Baso # (Auto) 0.08 (0.00-0.20) K/uL Immature Gran # (Auto) 0.10 (0.01-0.20) K/uL POC Sodium 140 (135-144) mmol/L Sodium 138 (136-145) mmol/L POC Potassium 3.3 (3.3-5.0) mmol/L Potassium 3.4 L (3.5-5.1) mmol/L POC Chloride 104 (101-112) mmol/L Chloride 104 (98-107) mmol/L Carbon Dioxide 21 (21-32) mmol/L POC Total CO2 17 L (24-31) mmol/L Anion Gap 13 H (3-11) POC Anion Gap 23.0 (16-25) mmol/L POC BUN 9 (7-18) mg/dl BUN 9 (6-23) mg/dl Creatinine 0.57 L (0.6-1.2) mg/dl POC Creatinine 0.7 (0.6-1.3) mg/dl Est Cr Clr Drug Dosing 63.2 ml/min eGFR 98.31 BUN/Creatinine Ratio 15.8 (10-20) Glucose 102 H (70-99(Fasting)) mg/dl POC Glucose (other) 110 H (70-99) mg/dl Calcium 9.7 (8.6-10.3) mg/dl POC Ioniz Calcium Hien 1.15 (1.12-1.32) mmol/l Total Bilirubin 0.3 (0.2-1.0) mg/dl AST 15 (13-39) U/L ALT 8 (7-52) U/L Alkaline Phosphatase 90 (34-104) U/L Troponin I High Sens 3.6 (0-14) pg/ml Total Protein 7.2 (6.0-8.3) gm/dl Albumin 4.3 (3.4-5.0) gm/dl Globulin 2.9 (2.5-4.0) gm/dl Albumin/Globulin Ratio 1.5 (0.9-2) Lipase 25 (11-82) U/L Administered Medications Discontinued Medications Sodium Chloride (Nss) 1,000 mls @ 999 mls/hr IV .Q1H1M ONE Stop: 06/03/24 22:33 Last Infusion: 06/03/24 22:43 Dose: Infused Documented By: Admin: 06/03/24 21:47 Dose: 999 mls/hr Documented By: MANOHAR Ioversol (Optiray 320 100ml) 90 ml IV ONCE ONE Stop: 06/03/24 21:57 Last Admin: 06/03/24 21:56 Dose: 90 ml Documented By: MINE Morphine Sulfate (Morphine Sulfate 2 Mg/Ml Carp) 2 mg IV NOW STA Stop: 06/03/24 21:34 Last Admin: 06/03/24 21:47 Dose: 2 mg Documented By: MANOHAR Morphine Sulfate (Morphine Sulfate 4 Mg/Ml 1 Ml Carp\\Vial) 4 mg IV NOW STA Stop: 06/03/24 22:34 Last Admin: 06/03/24 22:39 Dose: 4 mg Documented By: MANOHAR Morphine Sulfate (Morphine Sulfate 4 Mg/Ml 1 Ml Carp\\Vial) 4 mg IV NOW STA Stop: 06/04/24 00:03 Last Admin: 06/04/24 00:13 Dose: 4 mg Documented By: SWAPNIL Ondansetron HCl (Ondansetron Inj 2 Mg/Ml 2 Ml Vial) 4 mg IV NOW STA Stop: 06/03/24 21:34 Last Admin: 06/03/24 21:47 Dose: 4 mg Documented By: MANOHAR Imaging Data Radiologist's Impression: Chest X-Ray 06/03/24 21:27 Exam(s): XR CXR 1 VIEW EXAM: XR Chest, 1 View CLINICAL HISTORY: Reason for exam: Chest pain, nonspecific. TECHNIQUE: Frontal view of the chest. COMPARISON: 05/25/2023 FINDINGS: Lungs: Atelectasis at the left base. Lungs are hyperinflated. No consolidation or interstitial edema. Pleural space: No pleural effusion. No pneumothorax. Heart: Unremarkable. No cardiomegaly. IMPRESSION: Emphysematous changes and left basilar atelectasis. Electronically signed by: Baldev Kelley MD 06/03/24 22:40 PM Abdomen/Pelvis CT 06/03/24 21:33 Exam(s): CT ABDOMEN + PELVIS With Contrast IV Amt: 90 ml optiray 320 EXAM: CT Abdomen and Pelvis With Intravenous Contrast CLINICAL HISTORY: Reason for exam: r side abd pain s/p fall. TECHNIQUE: Axial computed tomography images of the abdomen and pelvis with intravenous contrast. CTDI is 21.42 mGy and DLP is 409.87 mGy-cm. Automated exposure control was utilized for the study. A dose lowering technique was utilized adhering to the principles of ALARA. CONTRAST: Patient received 90 ml optiray 320 of IV contrast COMPARISON: 10/25/23 FINDINGS: Lung bases: Bases: Reported separately. ABDOMEN: Liver: No evidence of hepatic injury. Stable subcentimeter hypodensities in the liver, statistically cysts. Gallbladder and bile ducts: Unremarkable. No calcified stones. No ductal dilation. Pancreas: Unremarkable. No ductal dilation. No evidence of pancreatic injury. Spleen: Unremarkable. No evidence of splenic injury. Adrenals: No evidence of adrenal injury. Stable thickening of the adrenal gland suggesting hyperplasia. Kidneys and ureters: Unremarkable. No hydronephrosis. No evidence of renal injury. Stomach and bowel: No evidence of bowel injury. Sigmoid diverticulosis. No obstruction. No mucosal thickening. PELVIS: Appendix: Appendix not identified. Bladder: Unremarkable. No evidence of bladder injury. Reproductive: Hysterectomy. ABDOMEN and PELVIS: Intraperitoneal space: Unremarkable. No free fluid or free air. Bones/joints: L2-L3 disc degeneration. No acute fracture or dislocation. Soft tissues: Unremarkable. Vasculature: No evidence of vascular injury. Atherosclerosis. No abdominal aortic aneurysm. Lymph nodes: Unremarkable. No enlarged lymph nodes. IMPRESSION: No acute findings in the abdomen or pelvis. Electronically signed by: Madison Mullen M.D. 06/03/24 23:[address] 06/03/24 21:33 Exam(s): CT C SPINE EXAM: CT Cervical Spine Without Intravenous Contrast CLINICAL HISTORY: Reason for exam: fall. TECHNIQUE: Axial computed tomography images of the cervical spine without intravenous contrast. CTDI is 21.42 mGy and DLP is 409.87 mGy-cm. Automated exposure control was utilized for the study. A dose lowering technique was utilized adhering to the principles of ALARA. COMPARISON: No relevant prior studies available. FINDINGS: Vertebrae: No acute fracture or traumatic subluxation. Discs/spinal canal/neural foramina: Degeneration at the atlantodental joint. Lower cervical disc degeneration, greatest at C6-C7. Multilevel bilateral facet joint degeneration with 2 mm degenerative anterolisthesis of C5. Lower cervical uncovertebral joint degeneration. No spinal canal stenosis. Varying degrees of foraminal narrowing, greatest on the left at C3-C4 and C4-C5. Soft tissues: Unremarkable. IMPRESSION: No acute findings in the cervical spine. Electronically signed by: Madison Mullen M.D. 06/03/24 23:[address] 06/03/24 21:33 Exam(s): CT CHEST With Contrast IV Amt: 90 ml optiray 320 EXAM: CT Chest With Intravenous Contrast CLINICAL HISTORY: Reason for exam: r chest wall trauma. TECHNIQUE: Axial computed tomography images of the chest with intravenous contrast. CTDI is 21.42 mGy and DLP is 409.87 mGy-cm. Automated exposure control was utilized for the study. A dose lowering technique was utilized adhering to the principles of ALARA. CONTRAST: Patient received 90 ml optiray 320 of IV contrast COMPARISON: No relevant prior studies available. FINDINGS: Lungs: Scarring at the lung apices. Subsegmental right basilar atelectasis. Partial left lower lobe collapse. Some low-density endobronchial opacification noted in the left lower lobe suggesting mucous plugging or aspiration. Some peripheral ground-glass opacity anterior right middle lobe and lateral left upper lobe could represent mild pulmonary contusions in the setting of trauma. Lungs appear otherwise clear. Pleural space: No pneumothorax. Trace bilateral pleural effusions. Heart: Coronary artery atherosclerosis. No cardiomegaly or pericardial effusion. Mediastinum: Unremarkable. No mediastinal hematoma. Bones/joints: Acute mildly displaced fractures posterior right ribs 9-10. No dislocation. Soft tissues: Unremarkable. Vasculature: No traumatic aortic injury, aneurysm, or dissection. Lymph nodes: Unremarkable. No enlarged lymph nodes. IMPRESSION: 1. Acute mildly displaced fractures posterior right ribs 9-10. Subjacent pleural thickening reflecting extrapleural hematoma formation. 2. Partial left lower lobe collapse. Some low-density endobronchial opacification noted in the left lower lobe suggesting mucous plugging or aspiration. 3. Some peripheral ground-glass opacity anterior right middle lobe and lateral left upper lobe could represent mild pulmonary contusions in the setting of trauma. 4. Trace bilateral pleural effusions. Electronically signed by: Madison Mullen M.D. 06/03/24 23:[address] 06/03/24 21:33 Exam(s): CT HEAD Without Contrast EXAM: CT Head Without Intravenous Contrast CLINICAL HISTORY: Reason for exam: fall. TECHNIQUE: Axial computed tomography images of the head/brain without intravenous contrast. CTDI is 35.79 mGy and DLP is 624.41 mGy-cm. Automated exposure control was utilized for the study. A dose lowering technique was utilized adhering to the principles of ALARA. COMPARISON: No relevant prior studies available. FINDINGS: Brain: Age-related parenchymal volume loss. Mild chronic small vessel ischemic change. Sultana-white matter differentiation maintained. No hemorrhage, mass effect, parenchymal edema, or midline shift. Ventricles: No hydrocephalus. Bones/joints: No acute fracture. Soft tissues: Unremarkable. Vasculature: Intracranial atherosclerosis. Sinuses: Unremarkable as visualized. Mastoid air cells: No significant mastoid effusion. IMPRESSION: No acute intracranial process. Electronically signed by: Madison Mullen M.D. 06/03/24 22:57 PM Discharge Plan Visit Data Chief Complaint: Chest Pain Stated Complaint: CHEST TIGHTNESS, BROKEN RIB?, SOB ED Provider: Mustapha Lynch Discharge Problem: Fracture, ribs, Contusion of lung, Mucus plugging of bronchi Forms Stand Alone Forms: [facility] [employer] Prescriptions Prescriptions: No Action medroxyprogesterone 2.5 mg Tablet 2.5 mg PO QAM Multivitamin Women 50 Plus 8 mg iron-400 mcg-300 mcg Tablet 1 tab PO QAM estradiol 0.5 mg tablet 0.5 mg PO QAM acetaminophen 500 mg Tablet 500 mg PO DIRECTED PRN (Reason: Pain) Referrals Referrals: Makeda Nichols PA-C [Physician Folding [employer]eder] - Discharge Problem: Fracture, ribs Qualifiers: Encounter type: initial encounter Fracture type: closed Laterality: right Q ualified Code(s): S22.41XA - Multiple fractures of ribs, right side, initial encounter for closed fracture Contusion of lung Qualifiers: Encounter type: initial encounter Laterality: unspecified laterality Qualified Code(s): S27.329A - Contusion of lung, unspecified, initial encounter
[2024-06-03] MEDS: SODIUM CHLORIDE 0.9% 1,000 ML IV ONE (21:47)
[2024-06-03] MEDS: MoRPHine SULFATE 2 MG/ML CARP IV STA (21:47)
[2024-06-03] MEDS: ONDANSETRON INJ 2 MG/ML 2 ML VIAL IV STA (21:47)
[2024-06-03] MEDS: OPTIRAY 320 100ml IV ONE (21:56)
[2024-06-03 21:57] LABS: Albumin Globulin Ratio 1.5 (0.9-2); Albumin Level 4.3 gm/dl (3.4-5.0); BUN Creatinine Ratio 15.8 (10-20); Bilirubin,Total 0.3 mg/dl (0.2-1.0); Calcium 9.7 mg/dl (8.6-10.3); Creatinine Clr Calc Pharmacy 63.2 ml/min; Globulin 2.9 gm/dl (2.5-4.0); Potassium 3.4 mmol/L (3.5-5.1); Total Protein 7.2 gm/dl (6.0-8.3)
[2024-06-03 22:02] LABS: iSTAT Creatinine 0.7 mg/dl (0.6-1.3); iSTAT Hemoglobin 12.9 g/dl (12.0-16.0); iSTAT Ionized Calcium 1.15 mmol/l (1.12-1.32); iSTAT Potassium 3.3 mmol/L (3.3-5.0)
[2024-06-03 22:03] LABS: Troponin I High Sensitivity 3.6 pg/ml (0-14)
[2024-06-03] MEDS: MoRPHine SULFATE 4 MG/ML 1 ML CARP\\VIAL IV STA (22:39)
--- NOTE | 2024-06-03 22:41 | XRay Report ---
Exam(s): XR CXR 1 VIEW EXAM: XR Chest, 1 View CLINICAL HISTORY: Reason for exam: Chest pain, nonspecific. TECHNIQUE: Frontal view of the chest. COMPARISON: 05/25/2023 FINDINGS: Lungs: Atelectasis at the left base. Lungs are hyperinflated. No consolidation or interstitial edema. Pleural space: No pleural effusion. No pneumothorax. Heart: Unremarkable. No cardiomegaly. IMPRESSION: Emphysematous changes and left basilar atelectasis. Electronically signed by: Baldev Kelley MD 06/03/24 22:40 PM
--- NOTE | 2024-06-03 22:57 | CT Scan Report ---
Exam(s): CT HEAD Without Contrast EXAM: CT Head Without Intravenous Contrast CLINICAL HISTORY: Reason for exam: fall. TECHNIQUE: Axial computed tomography images of the head/brain without intravenous contrast. CTDI is 35.79 mGy and DLP is 624.41 mGy-cm. Automated exposure control was utilized for the study. A dose lowering technique was utilized adhering to the principles of ALARA. COMPARISON: No relevant prior studies available. FINDINGS: Brain: Age-related parenchymal volume loss. Mild chronic small vessel ischemic change. Sultana-white matter differentiation maintained. No hemorrhage, mass effect, parenchymal edema, or midline shift. Ventricles: No hydrocephalus. Bones/joints: No acute fracture. Soft tissues: Unremarkable. Vasculature: Intracranial atherosclerosis. Sinuses: Unremarkable as visualized. Mastoid air cells: No significant mastoid effusion. IMPRESSION: No acute intracranial process. Electronically signed by: Madison Mullen M.D. 06/03/24 22:57 PM
--- NOTE | 2024-06-03 23:01 | CT Scan Report ---
Exam(s): CT ABDOMEN + PELVIS With Contrast IV Amt: 90 ml optiray 320 EXAM: CT Abdomen and Pelvis With Intravenous Contrast CLINICAL HISTORY: Reason for exam: r side abd pain s/p fall. TECHNIQUE: Axial computed tomography images of the abdomen and pelvis with intravenous contrast. CTDI is 21.42 mGy and DLP is 409.87 mGy-cm. Automated exposure control was utilized for the study. A dose lowering technique was utilized adhering to the principles of ALARA. CONTRAST: Patient received 90 ml optiray 320 of IV contrast COMPARISON: 10/25/23 FINDINGS: Lung bases: Bases: Reported separately. ABDOMEN: Liver: No evidence of hepatic injury. Stable subcentimeter hypodensities in the liver, statistically cysts. Gallbladder and bile ducts: Unremarkable. No calcified stones. No ductal dilation. Pancreas: Unremarkable. No ductal dilation. No evidence of pancreatic injury. Spleen: Unremarkable. No evidence of splenic injury. Adrenals: No evidence of adrenal injury. Stable thickening of the adrenal gland suggesting hyperplasia. Kidneys and ureters: Unremarkable. No hydronephrosis. No evidence of renal injury. Stomach and bowel: No evidence of bowel injury. Sigmoid diverticulosis. No obstruction. No mucosal thickening. PELVIS: Appendix: Appendix not identified. Bladder: Unremarkable. No evidence of bladder injury. Reproductive: Hysterectomy. ABDOMEN and PELVIS: Intraperitoneal space: Unremarkable. No free fluid or free air. Bones/joints: L2-L3 disc degeneration. No acute fracture or dislocation. Soft tissues: Unremarkable. Vasculature: No evidence of vascular injury. Atherosclerosis. No abdominal aortic aneurysm. Lymph nodes: Unremarkable. No enlarged lymph nodes. IMPRESSION: No acute findings in the abdomen or pelvis. Electronically signed by: Madison Mullen M.D. 06/03/24 23:00 PM
--- NOTE | 2024-06-03 23:05 | CT Scan Report ---
Exam(s): CT CHEST With Contrast IV Amt: 90 ml optiray 320 EXAM: CT Chest With Intravenous Contrast CLINICAL HISTORY: Reason for exam: r chest wall trauma. TECHNIQUE: Axial computed tomography images of the chest with intravenous contrast. CTDI is 21.42 mGy and DLP is 409.87 mGy-cm. Automated exposure control was utilized for the study. A dose lowering technique was utilized adhering to the principles of ALARA. CONTRAST: Patient received 90 ml optiray 320 of IV contrast COMPARISON: No relevant prior studies available. FINDINGS: Lungs: Scarring at the lung apices. Subsegmental right basilar atelectasis. Partial left lower lobe collapse. Some low-density endobronchial opacification noted in the left lower lobe suggesting mucous plugging or aspiration. Some peripheral ground-glass opacity anterior right middle lobe and lateral left upper lobe could represent mild pulmonary contusions in the setting of trauma. Lungs appear otherwise clear. Pleural space: No pneumothorax. Trace bilateral pleural effusions. Heart: Coronary artery atherosclerosis. No cardiomegaly or pericardial effusion. Mediastinum: Unremarkable. No mediastinal hematoma. Bones/joints: Acute mildly displaced fractures posterior right ribs 9-10. No dislocation. Soft tissues: Unremarkable. Vasculature: No traumatic aortic injury, aneurysm, or dissection. Lymph nodes: Unremarkable. No enlarged lymph nodes. IMPRESSION: 1. Acute mildly displaced fractures posterior right ribs 9-10. Subjacent pleural thickening reflecting extrapleural hematoma formation. 2. Partial left lower lobe collapse. Some low-density endobronchial opacification noted in the left lower lobe suggesting mucous plugging or aspiration. 3. Some peripheral ground-glass opacity anterior right middle lobe and lateral left upper lobe could represent mild pulmonary contusions in the setting of trauma. 4. Trace bilateral pleural effusions. Electronically signed by: Madison Mullen M.D. 06/03/24 23:04 PM
--- NOTE | 2024-06-03 23:06 | CT Scan Report ---
Exam(s): CT C SPINE EXAM: CT Cervical Spine Without Intravenous Contrast CLINICAL HISTORY: Reason for exam: fall. TECHNIQUE: Axial computed tomography images of the cervical spine without intravenous contrast. CTDI is 21.42 mGy and DLP is 409.87 mGy-cm. Automated exposure control was utilized for the study. A dose lowering technique was utilized adhering to the principles of ALARA. COMPARISON: No relevant prior studies available. FINDINGS: Vertebrae: No acute fracture or traumatic subluxation. Discs/spinal canal/neural foramina: Degeneration at the atlantodental joint. Lower cervical disc degeneration, greatest at C6-C7. Multilevel bilateral facet joint degeneration with 2 mm degenerative anterolisthesis of C5. Lower cervical uncovertebral joint degeneration. No spinal canal stenosis. Varying degrees of foraminal narrowing, greatest on the left at C3-C4 and C4-C5. Soft tissues: Unremarkable. IMPRESSION: No acute findings in the cervical spine. Electronically signed by: Madison Mullen M.D. 06/03/24 23:05 PM
--- NOTE | 2024-06-03 23:49 | History & Physical Report ---
Date of Service June 03, 2024 Assessment & Plan Admission and Anticipated Discharge Date Admission Date: 06/03/2024 History of Present Illness Chief Complaint: Chest pain Primary Care Provider: Makeda Nichols PA-C 69-year-old female PMHx glaucoma, migraine, OA, and postmenopausal bleeding presenting for SOB. Patient reports that on 05/24/2024, she had a fall at home and fractured her ribs (right posterior 9-10). Since that time, she has had worsening chest pain and SOB. Taking shallow breaths secondary to pain. ED evaluation with leukocytosis 17.97, stable H&H; CMP potassium 3.4, anion gap 13, creatinine 0.57, glucose 102; troponin 3.6; CXR emphysematous changes and L basilar atelectasis; CTAP no acute findings; cervical spine CT no acute findings; chest CT acute mildly displaced fracture posterior R rib 9-10, subjacent pleural thickening affecting extrapleural hematoma formation, partial LLL collapse possible mucous plugging or aspiration, peripheral groundglass opacity anterior RML and LLL could represent pulmonary contusions in setting of trauma, trace bilateral pleural effusions; EKG NSR with LAD at 99 bpm.; Provided with 1L NSS, ondansetron 4 mg IV, morphine 6 mg IV total. Please see Dr. Casillas's attestation for adjustments/additions to treatment plan. Allergies Allergy/AdvReac Type Severity Reaction Status Date / Time thimerosal Allergy Intermediate Swelling/Redness Verified 06/03/24 22:00 all over Home Medications Medication Instructions Recorded Confirmed Type medroxyprogesterone 2.5 mg tablet 2.5 mg PO QAM 09/05/18 06/03/24 History [id number] 8 mg-folic 400 1 tab PO QAM 09/05/18 06/03/24 History mcg-K 50 mcg-lutein 300 mcg tablet (Multivitamin Women 50 Plus) estradiol 0.5 mg tablet 0.5 mg PO QAM 05/25/23 06/03/24 History acetaminophen 500 mg tablet 500 mg PO DIRECTED PRN Pain 10/17/23 06/03/24 History Past Med/Surg History Problem List Postop check Postmenopausal bleeding COVID-19 (Acute) 10/25/23 Tobacco abuse counseling Viral pneumonia Severe sepsis 05/26/23 Elevated lactic acid level (Acute) 05/25/23 Infection due to human metapneumovirus (hMPV) (Acute) 05/25/23 Failure of outpatient treatment (Acute) Leukocytosis (Acute) 05/25/23 Pneumonia (Acute) 05/25/23 SOB (shortness of breath) (Acute) 05/25/23 Encounter for pre-operative examination Left shoulder pain (Acute) Left shoulder pain (Acute) Medical History Hx of shortness of breath 05/2023 - pneumonia Hx of sepsis r/t HMPV History of pneumonia HMPV - 05/2023 - [facility] Hospitalization Osteoarthritis Glaucoma Bilateral Migraine hx Surgical History H/O wrist surgery Right H/O elbow surgery Right Tennis Elbow History of esophagogastroduodenoscopy (EGD) History of colonoscopy H/O bilateral oophorectomy History of section History of appendectomy History of tooth extraction S/P tonsillectomy and adenoidectomy H/O eye surgery Bilateral "Radial Keratotomy" Family History Father Family hx of colon cancer Social History Smoking Status: Current every day smoker Tobacco Type: Cigarettes Cigarettes Per Day: 1 pack; Second Hand Exposure: No; Do You Dip or Chew Tobacco: No; Hx Alcohol Use: Yes Alcohol type: wine Hx Substance Use: No Preferred Language: Slovenian Communication Ability: Effective Rag Inspector Required: No Beliefs That Will Affect Care: None Current Living Situation: Spouse Feels Safe at Home: Yes Assistive Devices: Glasses Review of Systems Review of Systems: All systems reviewed & are unremarkable except as noted in Subjective Physical Exam Physical Exam: General: No acute distress Skin: Warm and dry Head: Normocephalic, atraumatic Eyes: PERRL, conjunctivae clear, sclera non-icteric ENT: External ear and ear canal without swelling; nose atraumatic; good dentition, tongue normal appearance, pharynx normal Neck: Supple, no LAD Cardio: RRR, no M/G/R, S1 and S2 normal Resp: No respiratory distress, Lungs CTA in all lobes bilaterally, no wheezes, rales, or rhonchi Abdomen: Soft, symmetric, nontender; No masses or hepatosplenomegaly; Bowel sounds normoactive MSK: No deformities; pulses palpable and equal; no edema. Neuro: Awake, alert; Sensation intact bilaterally; CN grossly intact Psych: Appropriate mood and affect; good judgement and insight. Results & Data Results & Data Vital Signs (Past 12 Hours) Vital Signs Temp Pulse Pulse Resp BP BP Pulse Ox 06/03/24 23:22 22 110/60 93 06/03/24 23:00 87 16 120/73 93 06/03/24 22:15 78 18 118/70 97 06/03/24 22:00 79 18 100/67 97 06/03/24 21:27 95 06/03/24 21:23 95 H 06/03/24 21:10 36.5 C 109 H 18 123/78 91 O2 Del Method 06/03/24 23:22 Room Air 06/03/24 23:00 Room Air 06/03/24 22:15 Room Air 06/03/24 22:00 Room Air 06/03/24 21:27 Room Air 06/03/24 21:23 06/03/24 21:10 Room Air Laboratory Results 06/03/24 06/03/24 21:44 21:22 WBC 17.97 H RBC 4.27 Hgb 14.1 POC Hgb 12.9 Hct 39.8 POC Hct 38 MCV 93.2 MCH 33.0 MCHC 35.4 RDW Std Deviation 45.1 RDW Coeff of Hailey 13.2 Plt Count 327 MPV 8.6 L Immature Gran % (Auto) 0.6 Neut % (Auto) 72.0 Lymph % (Auto) 19.6 [place] % (Auto) 6.2 Eos % (Auto) 1.2 Baso % (Auto) 0.4 Neut # (Auto) 12.92 H Lymph # (Auto) 3.53 H [place] # (Auto) 1.12 H Eos # (Auto) 0.22 Baso # (Auto) 0.08 Immature Gran # (Auto) 0.10 POC Sodium 140 Sodium 138 POC Potassium 3.3 Potassium 3.4 L POC Chloride 104 Chloride 104 Carbon Dioxide 21 POC Total CO2 17 L Anion Gap 13 H POC Anion Gap 23.0 POC BUN 9 BUN 9 Creatinine 0.57 L POC Creatinine 0.7 Est Cr Clr Drug Dosing 63.2 eGFR 98.31 BUN/Creatinine Ratio 15.8 Glucose 102 H POC Glucose (other) 110 H Calcium 9.7 POC Ioniz Calcium Hien 1.15 Total Bilirubin 0.3 AST 15 ALT 8 Alkaline Phosphatase 90 Troponin I High Sens 3.6 Total Protein 7.2 Albumin 4.3 Globulin 2.9 Albumin/Globulin Ratio 1.5 Lipase 25 Diagnostic Findings Chest X-Ray 06/03/24 21:27 Exam(s): XR CXR 1 VIEW EXAM: XR Chest, 1 View CLINICAL HISTORY: Reason for exam: Chest pain, nonspecific. TECHNIQUE: Frontal view of the chest. COMPARISON: 05/25/2023 FINDINGS: Lungs: Atelectasis at the left base. Lungs are hyperinflated. No consolidation or interstitial edema. Pleural space: No pleural effusion. No pneumothorax. Heart: Unremarkable. No cardiomegaly. IMPRESSION: Emphysematous changes and left basilar atelectasis. Electronically signed by: Baldev Kelley MD 06/03/24 22:40 PM Abdomen/Pelvis CT 06/03/24 21:33 Exam(s): CT ABDOMEN + PELVIS With Contrast IV Amt: 90 ml optiray 320 EXAM: CT Abdomen and Pelvis With Intravenous Contrast CLINICAL HISTORY: Reason for exam: r side abd pain s/p fall. TECHNIQUE: Axial computed tomography images of the abdomen and pelvis with intravenous contrast. CTDI is 21.42 mGy and DLP is 409.87 mGy-cm. Automated exposure control was utilized for the study. A dose lowering technique was utilized adhering to the principles of ALARA. CONTRAST: Patient received 90 ml optiray 320 of IV contrast COMPARISON: 10/25/23 FINDINGS: Lung bases: Bases: Reported separately. ABDOMEN: Liver: No evidence of hepatic injury. Stable subcentimeter hypodensities in the liver, statistically cysts. Gallbladder and bile ducts: Unremarkable. No calcified stones. No ductal dilation. Pancreas: Unremarkable. No ductal dilation. No evidence of pancreatic injury. Spleen: Unremarkable. No evidence of splenic injury. Adrenals: No evidence of adrenal injury. Stable thickening of the adrenal gland suggesting hyperplasia. Kidneys and ureters: Unremarkable. No hydronephrosis. No evidence of renal injury. Stomach and bowel: No evidence of bowel injury. Sigmoid diverticulosis. No obstruction. No mucosal thickening. PELVIS: Appendix: Appendix not identified. Bladder: Unremarkable. No evidence of bladder injury. Reproductive: Hysterectomy. ABDOMEN and PELVIS: Intraperitoneal space: Unremarkable. No free fluid or free air. Bones/joints: L2-L3 disc degeneration. No acute fracture or dislocation. Soft tissues: Unremarkable. Vasculature: No evidence of vascular injury. Atherosclerosis. No abdominal aortic aneurysm. Lymph nodes: Unremarkable. No enlarged lymph nodes. IMPRESSION: No acute findings in the abdomen or pelvis. Electronically signed by: Madison Mullen M.D. 06/03/24 23:[address] 06/03/24 21:33 Exam(s): CT C SPINE EXAM: CT Cervical Spine Without Intravenous Contrast CLINICAL HISTORY: Reason for exam: fall. TECHNIQUE: Axial computed tomography images of the cervical spine without intravenous contrast. CTDI is 21.42 mGy and DLP is 409.87 mGy-cm. Automated exposure control was utilized for the study. A dose lowering technique was utilized adhering to the principles of ALARA. COMPARISON: No relevant prior studies available. FINDINGS: Vertebrae: No acute fracture or traumatic subluxation. Discs/spinal canal/neural foramina: Degeneration at the atlantodental joint. Lower cervical disc degeneration, greatest at C6-C7. Multilevel bilateral facet joint degeneration with 2 mm degenerative anterolisthesis of C5. Lower cervical uncovertebral joint degeneration. No spinal canal stenosis. Varying degrees of foraminal narrowing, greatest on the left at C3-C4 and C4-C5. Soft tissues: Unremarkable. IMPRESSION: No acute findings in the cervical spine. Electronically signed by: Madison Mullen M.D. 06/03/24 23:[address] 06/03/24 21:33 Exam(s): CT CHEST With Contrast IV Amt: 90 ml optiray 320 EXAM: CT Chest With Intravenous Contrast CLINICAL HISTORY: Reason for exam: r chest wall trauma. TECHNIQUE: Axial computed tomography images of the chest with intravenous contrast. CTDI is 21.42 mGy and DLP is 409.87 mGy-cm. Automated exposure control was utilized for the study. A dose lowering technique was utilized adhering to the principles of ALARA. CONTRAST: Patient received 90 ml optiray 320 of IV contrast COMPARISON: No relevant prior studies available. FINDINGS: Lungs: Scarring at the lung apices. Subsegmental right basilar atelectasis. Partial left lower lobe collapse. Some low-density endobronchial opacification noted in the left lower lobe suggesting mucous plugging or aspiration. Some peripheral ground-glass opacity anterior right middle lobe and lateral left upper lobe could represent mild pulmonary contusions in the setting of trauma. Lungs appear otherwise clear. Pleural space: No pneumothorax. Trace bilateral pleural effusions. Heart: Coronary artery atherosclerosis. No cardiomegaly or pericardial effusion. Mediastinum: Unremarkable. No mediastinal hematoma. Bones/joints: Acute mildly displaced fractures posterior right ribs 9-10. No dislocation. Soft tissues: Unremarkable. Vasculature: No traumatic aortic injury, aneurysm, or dissection. Lymph nodes: Unremarkable. No enlarged lymph nodes. IMPRESSION: 1. Acute mildly displaced fractures posterior right ribs 9-10. Subjacent pleural thickening reflecting extrapleural hematoma formation. 2. Partial left lower lobe collapse. Some low-density endobronchial opacification noted in the left lower lobe suggesting mucous plugging or aspiration. 3. Some peripheral ground-glass opacity anterior right middle lobe and lateral left upper lobe could represent mild pulmonary contusions in the setting of trauma. 4. Trace bilateral pleural effusions. Electronically signed by: Madison Mullen M.D. 06/03/24 23:[address] 06/03/24 21:33 Exam(s): CT HEAD Without Contrast EXAM: CT Head Without Intravenous Contrast CLINICAL HISTORY: Reason for exam: fall. TECHNIQUE: Axial computed tomography images of the head/brain without intravenous contrast. CTDI is 35.79 mGy and DLP is 624.41 mGy-cm. Automated exposure control was utilized for the study. A dose lowering technique was utilized adhering to the principles of ALARA. COMPARISON: No relevant prior studies available. FINDINGS: Brain: Age-related parenchymal volume loss. Mild chronic small vessel ischemic change. Sultana-white matter differentiation maintained. No hemorrhage, mass effect, parenchymal edema, or midline shift. Ventricles: No hydrocephalus. Bones/joints: No acute fracture. Soft tissues: Unremarkable. Vasculature: Intracranial atherosclerosis. Sinuses: Unremarkable as visualized. Mastoid air cells: No significant mastoid effusion. IMPRESSION: No acute intracranial process. Electronically signed by: Madison Mullen M.D. 06/03/24 22:57 PM Medications Administered 1L NSS Ondansetron 4 mg IV Morphine sulfate 6 mg IV total ECG Additional Comments: NSR, possible LAE 99 bpm, WI 146, QRS 84, QT/QTc 350/449, PRT 81/-18/67 PG Care Time/CCT Total # of Minutes Spent Total Time Spent with Patient: Total time spent is greater than 50% in coordination of care (as documented) at patient's floor/unit and/or counseling patient: Coding Level of Care Code 65935 INT INP/OBS CARE 3/75MIN
[2024-06-04] MEDS: MoRPHine SULFATE 4 MG/ML 1 ML CARP\\VIAL IV STA (00:13)
--- NOTE | 2024-06-04 01:35 | Emergency Department Note ---
ED Visit Note Patient was initially discussed with [facility] care managers. It was later discovered that this actually case here patient was discussed with Dr. Wilks who for further evaluation management and treatment. .
[2024-06-04] MEDS ORDERED: NITROGLYCERIN SL 0.4 MG/TAB TAB SL PRN (02:23)
--- NOTE | 2024-06-04 02:28 | History & Physical Report ---
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 Seems On May 28, 2024 patient tripped over a mat and fell on the bathroom tub on the right side of the chest. Did not hit her head. No loss of consciousness. No other injuries. For couple of days she was sore on right side chest but then the pain got worse. Went to PCP and imaging studies were done which showed small right pleural effusion and 2 rib fractures were noted. She was prescribed pain medication. The pain is not getting better so she came to the ER today. Denies any shortness of of breath. Denies cough. No fevers. Cannot take deep breath. No headache. No runny nose or sore throat. No blurred vision or double vision. Appetite is okay. No nausea. No abdominal pain. Normal bowel and bladder movements. Ambulating okay. Hemodynamics are okay. Contusion of lung Status post fall in the bathroom tub on the right side of the rib cage CT scan showing acutely displaced fractures of posterior ribs 9-10. Extrapleural hematoma formation. Partial left lower lobe collapse. Left lower lobe mucous plugging or aspiration. Possible mild pulmonary contusions in the right middle lobe and lateral left upper lobe. Trace bilateral pleural effusio ns. Pain control Pulmonary consulted in a.m. for further recommendation Ongoing tobacco abuse Counseling DVT prophylaxis SCDs for now Disposition Telemetry. 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 Seems On May 28, 2024 patient tripped over a mat and fell on the bathroom tub on the right side of the chest. Did not hit her head. No loss of consciousness. No other injuries. For couple of days she was sore on right side chest but then the pain got worse. Went to PCP and imaging studies were done which showed small right pleural effusion and 2 rib fractures were noted. She was prescribed pain medication. The pain is not getting better so she came to the ER today. Denies any shortness of of breath. Denies cough. No fevers. Cannot take deep breath. No headache. No runny nose or sore throat. No blurred vision or double vision. Appetite is okay. No nausea. No abdominal pain. Normal bowel and bladder movements. Am bulating okay. Hemodynamics are okay. Past medical history. As mentioned above Past surgical history. Carpal tunnel surgery. . Colonoscopy. EGD. EGD with biopsy. Hysteroscopy with biopsy. Ligation oviducts. Repair of lunate right wrist. Appendectomy. Removal of your ovaries for tumor. Tonsillectomy. Social history. . Smoking 1 pack a day for last 51 years. No drug use. Drinks 3 glasses of wine per night. Family history. Aunt had breast cancer. Father had colon cancer. Mother had ovarian cancer. Allergies Allergy/AdvReac Type Severity Reaction Status Date / Time thimerosal Allergy Intermediate Swelling/Redness Verified 06/03/24 22:00 all over Home Medications Medication Instructions Recorded Confirmed Type medroxyprogesterone 2.5 mg tablet 2.5 mg PO QAM 09/05/18 06/03/24 History qvpslopx-ecrh-zvxm 8 mg-folic 400 1 tab PO QAM 09/05/18 06/03/24 History mcg-K 50 mcg-lutein 300 mcg tablet (Multivitamin Women 50 Plus) estradiol 0.5 mg tablet 0.5 mg PO QAM 05/25/23 06/03/24 History acetaminophen 500 mg tablet 500 mg PO DIRECTED PRN Pain 10/17/23 06/03/24 History Past Med/Surg History Problem List (Updated 06/04/24 @ 00:57 by Mustapha Lynch DO) Mucus plugging of bronchi (Acute) Contusion of lung (Acute) Fracture, ribs (Acute) Postop check Postmenopausal bleeding COVID-19 (Acute) 10/25/23 Tobacco abuse counseling Viral pneumonia Severe sepsis 05/26/23 Elevated lactic acid level (Acute) 05/25/23 Infection due to human metapneumovirus (hMPV) (Acute) 05/25/23 Failure of outpatient treatment (Acute) Leukocytosis (Acute) 05/25/23 Pneumonia (Acute) 05/25/23 SOB (shortness of breath) (Acute) 05/25/23 Encounter for pre-operative examination Left shoulder pain (Acute) Left shoulder pain (Acute) Medical History Hx of shortness of breath 05/2023 - pneumonia Hx of sepsis r/t HMPV History of pneumonia HMPV - 05/2023 - [facility] Hospitalization Osteoarthritis Glaucoma Bilateral Migraine hx Surgical History H/O wrist surgery Right H/O elbow surgery Right Tennis Elbow History of esophagogastroduodenoscopy (EGD) History of colonoscopy H/O bilateral oophorectomy History of section History of appendectomy History of tooth extraction S/P tonsillectomy and adenoidectomy H/O eye surgery Bilateral "Radial Keratotomy" Family History Father Family hx of colon cancer Social History Smoking Status: Current every day smoker Tobacco Type: Cigarettes Cigarettes Per Day: 1 pack; Second Hand Exposure: No; Do You Dip or Chew Tobacco: No; Hx Alcohol Use: Yes Alcohol type: wine Hx Substance Use: No Preferred Language: Luxembourger Communication Ability: Effective Draw Frame Operator Required: No Beliefs That Will Affect Care: None Current Living Situation: Spouse Other Information That Helps Us Care for You: No Feels Safe at Home: Yes Safety Concerns: Feels Safe At This Time Assistive Devices: Glasses Review of Systems Review of Systems: All systems reviewed & are unremarkable except as noted in HPI & below Physical Exam Physical Exam: General-Not in distress. Head- atraumatic Eyes- PERRL. ENT- oropharynx clear Neck- supple, no JVD. Lungs- clear to auscultation no wheezing or crackles Heart- regular rate and rhythm; no murmur, no gallop. Abdomen- normal bowel sounds, soft, nontender, no distension Extremities- no pretibial edema, no erythema seen Neuro- alert, oriented PERRL, no facial palsy; no dysarthria; moves extremities Results & Data Results & Data Vital Signs (Past 12 Hours) Vital Signs Temp Pulse Pulse Resp BP BP Pulse Ox 06/04/24 02:10 117/51 L 06/04/24 02:05 71 18 92 06/04/24 01:30 132/78 06/04/24 01:30 132/78 06/04/24 01:09 83 18 93 06/04/24 00:30 83 20 93 06/03/24 23:22 22 110/60 93 06/03/24 23:00 87 16 120/73 93 06/03/24 22:15 78 18 118/70 97 06/03/24 22:00 79 18 100/67 97 06/03/24 21:27 95 06/03/24 21:23 95 H 06/03/24 21:10 36.5 C 109 H 18 123/78 91 O2 Del Method 06/04/24 02:10 06/04/24 02:05 Room Air 06/04/24 01:30 06/04/24 01:30 06/04/24 01:09 Room Air 06/04/24 00:30 Room Air 06/03/24 23:22 Room Air 06/03/24 23:00 Room Air 06/03/24 22:15 Room Air 06/03/24 22:00 Room Air 06/03/24 21:27 Room Air 06/03/24 21:23 06/03/24 21:10 Room Air Diagnostic Findings Laboratory Results WBC 17.97 K/ul (4.8-10.8) H 06/03/24 21:22 RBC 4.27 M/uL (4.20-5.40) 06/03/24 21:22 Hgb 14.1 g/dl (12.0-16.0) 06/03/24 21:22 POC Hgb 12.9 g/dl (12.0-16.0) 06/03/24 21:44 Hct 39.8 % (37.0-47.0) 06/03/24 21:22 POC Hct 38 % (37-47) 06/03/24 21:44 MCV 93.2 fL (80.0-100.0) 06/03/24 21:22 MCH 33.0 pg (25.0-34.0) 06/03/24 21:22 MCHC 35.4 g/dL (32.0-36.0) 06/03/24 21:22 RDW Std Deviation 45.1 fL (36.4-46.3) 06/03/24 21:22 RDW Coeff of Hailey 13.2 % (11.5-14.5) 06/03/24 21:22 Plt Count 327 K/uL (130-400) 06/03/24 21:22 MPV 8.6 fL (9.4-12.4) L 06/03/24 21:22 Immature Gran % (Auto) 0.6 % 06/03/24 21:22 Neut % (Auto) 72.0 % 06/03/24 21:22 Lymph % (Auto) 19.6 % 06/03/24 21:22 [place] % (Auto) 6.2 % 06/03/24 21:22 Eos % (Auto) 1.2 % 06/03/24 21:22 Baso % (Auto) 0.4 % 06/03/24 21: Neut # (Auto) 12.92 K/uL (1.40-6.50) H 06/03/24 21:22 Lymph # (Auto) 3.53 K/uL (1.20-3.40) H 06/03/24 21:22 [place] # (Auto) 1.12 K/uL (0.11-0.59) H 06/03/24 21:22 Eos # (Auto) 0.22 K/uL (0.00-0.50) 06/03/24 21:22 Baso # (Auto) 0.08 K/uL (0.00-0.20) 06/03/24 21: Immature Gran # (Auto) 0.10 K/uL (0.01-0.20) 06/03/24 21:22 POC Sodium 140 mmol/L (135-144) 06/03/24 21:44 Sodium 138 mmol/L (136-145) 06/03/24 21:22 POC Potassium 3.3 mmol/L (3.3-5.0) 06/03/24 21:44 Potassium 3.4 mmol/L (3.5-5.1) L 06/03/24 21:22 POC Chloride 104 mmol/L (101-112) 06/03/24 21:44 Chloride 104 mmol/L (98-107) 06/03/24 21:22 Carbon Dioxide 21 mmol/L (21-32) 06/03/24 21:22 POC Total CO2 17 mmol/L (24-31) L 06/03/24 21:44 Anion Gap 13 (3-11) H 06/03/24 21:22 POC Anion Gap 23.0 mmol/L (16-25) 06/03/24 21:44 POC BUN 9 mg/dl (7-18) 06/03/24 21:44 BUN 9 mg/dl (6-23) 06/03/24 21:22 Creatinine 0.57 mg/dl (0.6-1.2) L 06/03/24 21:22 POC Creatinine 0.7 mg/dl (0.6-1.3) 06/03/24 21:44 Est Cr Clr Drug Dosing 63.2 ml/min 06/03/24 21:22 eGFR 98.31 06/03/24 21:22 BUN/Creatinine Ratio 15.8 (10-20) 06/03/24 21:22 Glucose 102 mg/dl (70-99(Fasting)) H 06/03/24 21:22 POC Glucose (other) 110 mg/dl (70-99) H 06/03/24 21:44 Calcium 9.7 mg/dl (8.6-10.3) 06/03/24 21:22 POC Ioniz Calcium Hien 1.15 mmol/l (1.12-1.32) 06/03/24 21:44 Total Bilirubin 0.3 mg/dl (0.2-1.0) 06/03/24 21:22 AST 15 U/L (13-39) 06/03/24 21:22 ALT 8 U/L (7-52) 06/03/24 21:22 Alkaline Phosphatase 90 U/L (34-104) 06/03/24 21:22 Troponin I High Sens 3.6 pg/ml (0-14) 06/03/24 21:22 Total Protein 7.2 gm/dl (6.0-8.3) 06/03/24 21:22 Albumin 4.3 gm/dl (3.4-5.0) 06/03/24 21:22 Globulin 2.9 gm/dl (2.5-4.0) 06/03/24 21:22 Albumin/Globulin Ratio 1.5 (0.9-2) 06/03/24 21:22 Lipase 25 U/L (11-82) 06/03/24 21:22 Impressions Chest X-Ray 06/03/24 21:27 Exam(s): XR CXR 1 VIEW EXAM: XR Chest, 1 View CLINICAL HISTORY: Reason for exam: Chest pain, nonspecific. TECHNIQUE: Frontal view of the chest. COMPARISON: 05/25/2023 FINDINGS: Lungs: Atelectasis at the left base. Lungs are hyperinflated. No consolidation or interstitial edema. Pleural space: No pleural effusion. No pneumothorax. Heart: Unremarkable. No cardiomegaly. IMPRESSION: Emphysematous changes and left basilar atelectasis. Electronically signed by: Baldev Kelley MD 06/03/24 22:40 PM Abdomen/Pelvis CT 06/03/24 21:33 Exam(s): CT ABDOMEN + PELVIS With Contrast IV Amt: 90 ml optiray 320 EXAM: CT Abdomen and Pelvis With Intravenous Contrast CLINICAL HISTORY: Reason for exam: r side abd pain s/p fall. TECHNIQUE: Axial computed tomography images of the abdomen and pelvis with intravenous contrast. CTDI is 21.42 mGy and DLP is 409.87 mGy-cm. Automated exposure control was utilized for the study. A dose lowering technique was utilized adhering to the principles of ALARA. CONTRAST: Patient received 90 ml optiray 320 of IV contrast COMPARISON: 10/25/23 FINDINGS: Lung bases: Bases: Reported separately. ABDOMEN: Liver: No evidence of hepatic injury. Stable subcentimeter hypodensities in the liver, statistically cysts. Gallbladder and bile ducts: Unremarkable. No calcified stones. No ductal dilation. Pancreas: Unremarkable. No ductal dilation. No evidence of pancreatic injury. Spleen: Unremarkable. No evidence of splenic injury. Adrenals: No evidence of adrenal injury. Stable thickening of the adrenal gland suggesting hyperplasia. Kidneys and ureters: Unremarkable. No hydronephrosis. No evidence of renal injury. Stomach and bowel: No evidence of bowel injury. Sigmoid diverticulosis. No obstruction. No mucosal thickening. PELVIS: Appendix: Appendix not identified. Bladder: Unremarkable. No evidence of bladder injury. Reproductive: Hysterectomy. ABDOMEN and PELVIS: Intraperitoneal space: Unremarkable. No free fluid or free air. Bones/joints: L2-L3 disc degeneration. No acute fracture or dislocation. Soft tissues: Unremarkable. Vasculature: No evidence of vascular injury. Atherosclerosis. No abdominal aortic aneurysm. Lymph nodes: Unremarkable. No enlarged lymph nodes. IMPRESSION: No acute findings in the abdomen or pelvis. Electronically signed by: Madison Mullen M.D. 06/03/24 23:[address] 06/03/24 21:33 Exam(s): CT C SPINE EXAM: CT Cervical Spine Without Intravenous Contrast CLINICAL HISTORY: Reason for exam: fall. TECHNIQUE: Axial computed tomography images of the cervical spine without intravenous contrast. CTDI is 21.42 mGy and DLP is 409.87 mGy-cm. Automated exposure control was utilized for the study. A dose lowering technique was utilized adhering to the principles of ALARA. COMPARISON: No relevant prior studies available. FINDINGS: Vertebrae: No acute fracture or traumatic subluxation. Discs/spinal canal/neural foramina: Degeneration at the atlantodental joint. Lower cervical disc degeneration, greatest at C6-C7. Multilevel bilateral facet joint degeneration with 2 mm degenerative anterolisthesis of C5. Lower cervical uncovertebral joint degeneration. No spinal canal stenosis. Varying degrees of foraminal narrowing, greatest on the left at C3-C4 and C4-C5. Soft tissues: Unremarkable. IMPRESSION: No acute findings in the cervical spine. Electronically signed by: Madison Mullen M.D. 06/03/24 23:[address] 06/03/24 21:33 Exam(s): CT CHEST With Contrast IV Amt: 90 ml optiray 320 EXAM: CT Chest With Intravenous Contrast CLINICAL HISTORY: Reason for exam: r chest wall trauma. TECHNIQUE: Axial computed tomography images of the chest with intravenous contrast. CTDI is 21.42 mGy and DLP is 409.87 mGy-cm. Automated exposure control was utilized for the study. A dose lowering technique was utilized adhering to the principles of ALARA. CONTRAST: Patient received 90 ml optiray 320 of IV contrast COMPARISON: No relevant prior studies available. FINDINGS: Lungs: Scarring at the lung apices. Subsegmental right basilar atelectasis. Partial left lower lobe collapse. Some low-density endobronchial opacification noted in the left lower lobe suggesting mucous plugging or aspiration. Some peripheral ground-glass opacity anterior right middle lobe and lateral left upper lobe could represent mild pulmonary contusions in the setting of trauma. Lungs appear otherwise clear. Pleural space: No pneumothorax. Trace bilateral pleural effusions. Heart: Coronary artery atherosclerosis. No cardiomegaly or pericardial effusion. Mediastinum: Unremarkable. No mediastinal hematoma. Bones/joints: Acute mildly displaced fractures posterior right ribs 9-10. No dislocation. Soft tissues: Unremarkable. Vasculature: No traumatic aortic injury, aneurysm, or dissection. Lymph nodes: Unremarkable. No enlarged lymph nodes. IMPRESSION: 1. Acute mildly displaced fractures posterior right ribs 9-10. Subjacent pleural thickening reflecting extrapleural hematoma formation. 2. Partial left lower lobe collapse. Some low-density endobronchial opacification noted in the left lower lobe suggesting mucous plugging or aspiration. 3. Some peripheral ground-glass opacity anterior right middle lobe and lateral left upper lobe could represent mild pulmonary contusions in the setting of trauma. 4. Trace bilateral pleural effusions. Electronically signed by: Madison Mullen M.D. 06/03/24 23:[address] 06/03/24 21:33 Exam(s): CT HEAD Without Contrast EXAM: CT Head Without Intravenous Contrast CLINICAL HISTORY: Reason for exam: fall. TECHNIQUE: Axial computed tomography images of the head/brain without intravenous contrast. CTDI is 35.79 mGy and DLP is 624.41 mGy-cm. Automated exposure control was utilized for the study. A dose lowering technique was utilized adhering to the principles of ALARA. COMPARISON: No relevant prior studies available. FINDINGS: Brain: Age-related parenchymal volume loss. Mild chronic small vessel ischemic change. Sultana-white matter differentiation maintained. No hemorrhage, mass effect, parenchymal edema, or midline shift. Ventricles: No hydrocephalus. Bones/joints: No acute fracture. Soft tissues: Unremarkable. Vasculature: Intracranial atherosclerosis. Sinuses: Unremarkable as visualized. Mastoid air cells: No significant mastoid effusion. IMPRESSION: No acute intracranial process. Electronically signed by: Madison Mullen M.D. 06/03/24 22:57 PM ECG Additional Comments: ECG. Normal sinus rhythm 119. Possible left atrial enlargement QTc 449 Code Status & VTE Plan VTE Prophylaxis Plan VTE Prophylaxis will be ordered: Yes (1) Contusion of lung Encounter type: initial encounter Laterality: unspecified laterality Qualified Code(s): S27.329A - Contusion of lung, unspecified, initial encounter
[2024-06-04] MEDS: SODIUM CHLORIDE 0.9% 1,000 ML IV STA (02:49)
[2024-06-04] MEDS: NICOTINE 21 MG/24 HR TDSY TD SCH (02:49)
[2024-06-04] MEDS: oxyCODONE HCL IR 5 MG TAB (IMMEDIATE RELEASE) PO PRN (02:49)
[2024-06-04] MEDS: HYDROmorphone INJ 0.5 MG/0.5 ML SYR IV PRN (05:47)
[2024-06-04] MEDS: ACETAMINOPHEN 325 MG TAB PO PRN (07:45)
[2024-06-04] MEDS: estradioL 1 MG TAB PO SCH (07:46)
[2024-06-04] MEDS: CEROVITE ADV FORMULA TAB PO SCH (07:46)
[2024-06-04 07:47] LABS: Basophils # (auto) 0.06 K/uL (0.00-0.20); Basophils % (auto) 0.6 %; Eosinophils # (auto) 0.27 K/uL (0.00-0.50); Eosinophils % (auto) 2.9 %; Hematocrit (blood only) 34.2 % (37.0-47.0); Hemoglobin 11.5 g/dl (12.0-16.0); Immature Granulocytes # (auto) 0.03 K/uL (0.01-0.20); Immature Granulocytes % (auto) 0.3 %; Lymphocytes # (auto) 2.71 K/uL (1.20-3.40); Lymphocytes % (auto) 29.3 %; Mean Corpuscular Hemoglobin 31.9 pg (25.0-34.0); Mean Corpuscular Hgb Conc 33.6 g/dL (32.0-36.0); Mean Platelet Volume 8.7 fL (9.4-12.4); Monocytes # (auto) 0.76 K/uL (0.11-0.59); Monocytes % (auto) 8.2 %; Neutrophils # (auto) 5.42 K/uL (1.40-6.50); Neutrophils % (auto) 58.7 %; Platelet Count 258 K/uL (130-400); RDW Coefficient of Variation 13.2 % (11.5-14.5); RDW Standard Deviation 46.1 fL (36.4-46.3); White Blood Count 9.25 K/ul (4.8-10.8)
[2024-06-04 08:08] LABS: BUN Creatinine Ratio 18.8 (10-20); Calcium 8.1 mg/dl (8.6-10.3); Creatinine Clr Calc Pharmacy 75.1 ml/min; Magnesium 1.6 mg/dl (1.7-2.4); Potassium 4.1 mmol/L (3.5-5.1)
--- NOTE | 2024-06-04 08:57 | Pulmonary Consultation ---
Date of Consultation June 04, 2024 Assessment & Plan (1) COPD with emphysema: (2) Fracture, ribs: Encounter type: initial encounter Fracture type: closed L aterality: right Qualified Code(s): S22.41XA - Multiple fractures of ribs, right side, initial encounter for closed fracture (3) Abnormal chest CT: (4) Mucus plugging of bronchi: (5) Current smoker: Plan CT chest 06/03/2024 personally reviewed: Bilateral apical pleural scarring Centrilobular emphysema appreciated bilaterally Atelectasis of the left lower lobe No significant mediastinal lymphadenopathy -- Left lower lobe collapse With probable mucous plugging Procalcitonin negative --COPD with emphysema Not on any any inhalers at home Recommend outpatient follow-up with pulmonary On discharge recommend Stiolto or Anoro inhaler -- Acute rib fractures on the right side Pain management as per primary team I do not see any significant parenchymal abnormality on the CT chest -- History of lung cancer in maternal grandfather who was a smoker Plan: Patient does seem to have mucous plugging with collapse of the left lower lobe. Usually the plan would be Mucinex [id number] along with flutter valve. Given the acute rib fractures this might be difficult to achieve. This would still be my first-line of treatment Would recommend pain management for the rib fracture pain. If there is still persistent collapse of the left lower lobe then bronchoscopy could be pursued to clear the mucous plugging Case was discussed with primary team as well as RN at bedside Please note the above document was generated using voice recognition software. It may contain grammatical, syntax or spelling errors.Any formal questions or concerns about the content, text or information contained within the body of this dictation should be directly addressed to the provider for clarification. History of Present Illness Attending Physician: Jayne Talley MD History of Present Illness 69-year-old female presented to the hospital for abnormal chest CT Past medical history: Osteoarthritis, benign tumor of the ovary Pulmonary consulted for abnormal chest CT At the time of examination patient was in no acute distress while at rest On asking her to take deep breaths or moving around she did flinch because of the pain on the right side of the chest She stated that she tripped on the carpet and fell in the bathroom leading to the rib fractures Denied any dizziness, lightheadedness or palpitation prior to the fall. Does complain of cough, lately has been having difficulty bringing it up. It is more difficult given that she has pain on the right side whenever she coughs Denies any hemoptysis She is able to do her day-to-day activities when it comes to her breathing without any issues On exertion when she does get short of breath it is mostly huffing and puffing No chest pain, no chest tightness, no wheezing, diaphoresis, no palpitation at that time No unusual headache or blurry vision No fever or chills No night sweats, no unintentional weight loss Social history: > [id number] smoking history, currently smoking a pack a day, social alcohol, denies any illicit drug use used to work at [employer] in [place]. No exposure to any chemicals or fumes Pets: Cat Lung cancer: History of lung cancer in maternal grandfather who was a smoker Allergies Allergy/AdvReac Type Severity Reaction Status Date / Time thimerosal Allergy Intermediate Swelling/Redness Verified 06/03/24 22:00 all over Home Medications Medication Instructions Recorded Confirmed Type medroxyprogesterone 2.5 mg tablet 2.5 mg PO QAM 09/05/18 06/03/24 History yypaldvq-pemw-rtsk 8 mg-folic 400 1 tab PO QAM 09/05/18 06/03/24 History mcg-K 50 mcg-lutein 300 mcg tablet (Multivitamin Women 50 Plus) estradiol 0.5 mg tablet 0.5 mg PO QAM 05/25/23 06/03/24 History acetaminophen 500 mg tablet 500 mg PO DIRECTED PRN Pain 10/17/23 06/03/24 History Patient History Medical History Hx of shortness of breath 05/2023 - pneumonia Hx of sepsis r/t HMPV History of pneumonia HMPV - 05/2023 - [facility] Hospitalization Osteoarthritis Glaucoma Bilateral Migraine hx Surgical History H/O wrist surgery Right H/O elbow surgery Right Tennis Elbow History of esophagogastroduodenoscopy (EGD) History of colonoscopy H/O bilateral oophorectomy History of section History of appendectomy History of tooth extraction S/P tonsillectomy and adenoidectomy H/O eye surgery Bilateral "Radial Keratotomy" Family History Father Family hx of colon cancer Social History Smoking Status: Current every day smoker Tobacco Type: Cigarettes Cigarettes Per Day: 1 pack; Second Hand Exposure: No; Do You Dip or Chew Tobacco: No; Hx Alcohol Use: Yes Alcohol type: wine Hx Substance Use: No Preferred Language: Turkish Communication Ability: Effective 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 Required: No Beliefs That Will Affect Care: None Current Living Situation: Spouse Other Information That Helps Us Care for You: No Feels Safe at Home: Yes Safety Concerns: Feels Safe At This Time Assistive Devices: Glasses Review of Systems 2 Review of Systems: All systems reviewed & are unremarkable except as noted in HPI & below Physical Exam 2 Physical Exam: Constitutional: No acute distress, frail-appearing HEENT: EOMI, PERRLA Respiratory system: Decreased air entry bilaterally, more decreased on the left lower side, no wheeze, no rhonchi, positive crackles left lower lobe CVS: S1-S2 positive, no murmurs or gallops Abdomen: Soft, nontender, nondistended, positive bowel sounds x4 Extremities: +2 pulses bilaterally radialis/ dorsalis pedis, no cyanosis, no edema Neuro: Awake alert oriented x3 Psych: Normal mood and affect G/U: No Zacarias Skin: no rashes, warm and dry Lymphatic: no cervical or axillary lymphadenopathy Results & Data Results & Data Vital Signs (Past 12 Hours) Vital Signs Temp Pulse Pulse Resp BP BP Pulse Ox 06/04/24 07:45 36.7 C 82 18 117/70 90 06/04/24 07:38 91 H 06/04/24 02:34 06/04/24 02:34 36.5 C 82 18 111/88 93 06/04/24 02:20 86 06/04/24 02:10 117/51 L 06/04/24 02:05 71 18 92 06/04/24 01:30 132/78 06/04/24 01:30 132/78 06/04/24 01:09 83 18 93 06/04/24 00:30 83 20 93 06/03/24 23:22 22 110/60 93 06/03/24 23:00 87 16 120/73 93 06/03/24 22:15 78 18 118/70 97 06/03/24 22:00 79 18 100/67 97 06/03/24 21:27 95 06/03/24 21:23 95 H 06/03/24 21:10 36.5 C 109 H 18 123/78 91 O2 Del Method 06/04/24 07:45 Room Air 06/04/24 07:38 06/04/24 02:34 Room Air 06/04/24 02:34 Room Air 06/04/24 02:20 06/04/24 02:10 06/04/24 02:05 Room Air 06/04/24 01:30 06/04/24 01:30 06/04/24 01:09 Room Air 06/04/24 00:30 Room Air 06/03/24 23:22 Room Air 06/03/24 23:00 Room Air 06/03/24 22:15 Room Air 06/03/24 22:00 Room Air 06/03/24 21:27 Room Air 06/03/24 21:23 06/03/24 21:10 Room Air Laboratory Results 06/04/24 07:20 06/04/24 07:20 PG Care Time/CCT Total # of Minutes Spent Total Time Spent with Patient: Total time spent is greater than 50% in coordination of care (as documented) at patient's floor/unit and/or counseling patient: [place] [address] INT INP/OBS CARE 3/75MIN Patient Type New Diagnoses COPD with emphysema J43.9 Fracture, ribs S22.41XA Encounter type: initial encounter Fracture type: closed Laterality: right Abnormal chest CT R93.89 Mucus plugging of bronchi T17.500A Current smoker F17.200
[2024-06-04] MEDS: guaiFENesin 600 MG TABCR PO SCH (09:54)
--- NOTE | 2024-06-04 13:33 | Hospitalist Progress Note ---
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 Seems On May 28, 2024 patient tripped over a mat and fell on the bathroom tub on the right side of the chest. Did not hit her head. No loss of consciousness. No other injuries. For couple of days she was sore on right side chest but then the pain got worse. Went to PCP and imaging studies were done which showed small right pleural effusion and 2 rib fractures were noted. She was prescribed pain medication. The pain is not getting better so she came to the ER today. Denies any shortness of of breath. Denies cough. No fevers. Cannot take deep breath. No headache. No runny nose or sore throat. No blurred vision or double vision. Appetite is okay. No nausea. No abdominal pain. Normal bowel and bladder movements. Ambulating okay. Hemodynamics are okay. Contusion of lung Status post fall in the bathroom tub on the right side of the rib cage Shortness of breath secondary to pain and rib fracture Will observe for any worsening of the contusion Appreciate pulmonary input and recommendation Ongoing tobacco abuse Counseling (2) Fracture, ribs: Plan: CT scan showing acutely displaced fractures of posterior ribs 9-10. Extrapleural hematoma formation. Pain control Will give cough medicine to suppress cough and decrease pain (3) Mucus plugging of bronchi: Plan: Partial left lower lobe collapse. Left lower lobe mucous plugging or aspiration. Possible mild pulmonary contusions in the right middle lobe and lateral left upper lobe. Trace bilateral pleural effusions. Appreciate pulmonary input and recommendation Will have bronchoscopy tomorrow (4) COPD with emphysema: Plan: History of COPD with ongoing smoking No acute exacerbation but complicating recent refracture Plan DVT prophylaxis SCDs for now Disposition Telemetry. Full code Admission and Anticipated Discharge Date Admission Date: June 04, 2024 Subjective 06/04/2024 The patient was seen and examined in telemetry unit She has had a mechanical fall in July right chest wall with history of COPD Has a few broken ribs on the right side and causing her current symptoms Denies any other symptoms except chest pain Review of Systems Review of Systems: All systems reviewed and are unremarkable except as noted below Physical Exam Physical Exam: Lying in bed with minimal distress due to shortness of breath and chest pain Constitutional: + ill appearing and + thin Eyes: PERRL, conjunctivae normal, anicteric sclerae ENMT: external ear and nose normal, oropharynx normal Neck: trachea midline, no thyromegaly Respiratory: + respiratory distress Auscultation: + diminished lung sounds and + crackles ( occasional crackles at the bases) Cardiovascular: Rate/Rhythm: regular rate and regular rhythm; not tachycardic Heart Sounds: normal S1 and normal S2; no murmur Extremities: no edema Gastrointestinal (Abdomen): Inspection/Auscultation: normal bowel sounds; abdomen not distended Percussion/Palpation: abdomen soft; abdomen nontender Musculoskeletal: No acute arthritis involving any of the joints Neurologic: normal touch/pain/proprioception and moves all extremities; no focal motor deficits Psychiatric: A+Ox3, euthymic affect Lymphatic: no cervical or axillary lymphadenopathy Results & Data Results & Data Vital Signs (Past 12 Hours) Vital Signs Temp Pulse Pulse Resp BP BP Pulse Ox 06/04/24 11:37 36.6 C 72 20 119/78 96 06/04/24 07:45 06/04/24 07:45 36.7 C 82 18 117/70 90 06/04/24 07:38 91 H 06/04/24 02:34 06/04/24 02:34 36.5 C 82 18 111/88 93 06/04/24 02:20 86 06/04/24 02:10 117/51 L 06/04/24 02:05 71 18 92 O2 Del Method 06/04/24 11:37 Room Air 06/04/24 07:45 Room Air 06/04/24 07:45 Room Air 06/04/24 07:38 06/04/24 02:34 Room Air 06/04/24 02:34 Room Air 06/04/24 02:20 06/04/24 02:10 06/04/24 02:05 Room Air Laboratory Results Short CBC 06/03/24 06/04/24 Range/Units 21:22 07:20 WBC 17.97 H 9.25 (4.8-10.8) K/ul Hgb 14.1 11.5 L (12.0-16.0) g/dl Hct 39.8 34.2 L (37.0-47.0) % Plt Count 327 258 (130-400) K/uL BMP 06/03/24 06/04/24 21:22 07:20 Sodium 138 139 Potassium 3.4 L 4.1 D Chloride 104 109 H Carbon Dioxide 21 24 BUN 9 9 Creatinine 0.57 L 0.48 L Glucose 102 H 87 Calcium 9.7 8.1 L Liver Function 06/03/24 Range/Units 21:22 Total Bilirubin 0.3 (0.2-1.0) mg/dl AST 15 (13-39) U/L ALT 8 (7-52) U/L Alkaline Phosphatase 90 (34-104) U/L Albumin 4.3 (3.4-5.0) gm/dl Medications Administered Current Inpatient Medications Acetaminophen (Acetaminophen 325 Mg Tab) 650 mg PO Q4H PRN PRN Reason: Pain or Fever Stop: 07/04/24 02:22 Last Admin: 06/04/24 07:45 Dose: 650 mg Budesonide (Budesonide 0.5 Mg/2 Ml Vial (Pulmicort)) 0.5 mg NEB BIDR RJ Stop: 07/04/24 18:59 Estradiol (Estradiol 1 Mg Tab) 0.5 mg PO QAM RJ Stop: 07/04/24 08:59 Last Admin: 06/04/24 07:46 Dose: 0.5 mg Formoterol Fumarate (Formoterol 20 Mcg/2 Ml Vial) 20 mcg NEB BIDR RJ Stop: 07/04/24 18:59 Guaifenesin (Guaifenesin 600 Mg Tabcr) 1,200 mg PO Q12 RJ Stop: 07/04/24 08:59 Last Admin: 06/04/24 09:54 Dose: 1,200 mg Hydromorphone HCl (Hydromorphone Inj 0.5 Mg/0.5 Ml Syr) 0.5 mg IV Q6H PRN PRN Reason: Severe Pain (Scale 7, 8, 9,10) Stop: 06/18/24 02:22 Last Admin: 06/04/24 11:50 Dose: 0.5 mg Sodium Chloride (Nss) 1,000 mls @ 80 mls/hr IV .[id number] STA Stop: 06/04/24 14:58 Last Admin: 06/04/24 02:49 Dose: 80 mls/hr Medroxyprogesterone Acetate (Medroxyprogesterone Acetate 2.5 Mg Tab) 2.5 mg PO QAM [facility] Stop: 07/04/24 08:59 Last Admin: 06/04/24 07:46 Dose: 2.5 mg Miscellaneous (Remove Nicoderm Patch) 1 each N/A DAILY@0859 [facility] Stop: 07/05/24 08:58 Multivitamins/Minerals (Cerovite Adv Formula Tab) 1 tab PO QAM [facility] Stop: 07/04/24 08:59 Last Admin: 06/04/24 07:46 Dose: 1 tab Nicotine (Nicotine 21 Mg/24 Hr Tdsy) 1 patch TD QAM [facility] Stop: 07/04/24 08:59 Last Admin: 06/04/24 02:49 Dose: 1 patch Nitroglycerin (Nitroglycerin Sl 0.4 Mg/Tab Tab) 0.4 mg SL Q5M PRN PRN Reason: Chest Pain Stop: 07/04/24 02:22 Oxycodone HCl (Oxycodone Hcl Ir 5 Mg Tab (Immediate Release)) 5 mg PO Q6H PRN PRN Reason: Mod-Sev Pain (Scale 4-10) Stop: 06/18/24 02:22 Last Admin: 06/04/24 08:56 Dose: 5 mg Polyethylene Glycol (Polyethylene (Miralax) 17 Gm Pack) 17 gm PO DAILY PRN PRN Reason: Constipation Stop: 07/04/24 02:22 (1) Contusion of lung Encounter type: initial encounter Laterality: unspecified laterality Qualified Code(s): S27.329A - Contusion of lung, unspecified, initial encounter (2) Fracture, ribs Encounter type: initial encounter Fracture type: closed Laterality: right Qualified Code(s): S22.41XA - Multiple fractures of ribs, right side, initial encounter for closed fracture
[2024-06-04] MEDS: ONDANSETRON INJ 2 MG/ML 2 ML VIAL IV STA (21:24)
[2024-06-04] MEDS: FORMOTEROL 20 MCG/2 ML VIAL NEB SCH (21:25)
[2024-06-04] MEDS: BUDESONIDE 0.5 MG/2 ML VIAL (PULMICORT) NEB SCH (21:25)
[2024-06-05 06:53] LABS: Basophils # (auto) 0.06 K/uL (0.00-0.20); Basophils % (auto) 0.7 %; Eosinophils # (auto) 0.27 K/uL (0.00-0.50); Eosinophils % (auto) 3.1 %; Hematocrit (blood only) 35.9 % (37.0-47.0); Hemoglobin 12.2 g/dl (12.0-16.0); Immature Granulocytes # (auto) 0.04 K/uL (0.01-0.20); Immature Granulocytes % (auto) 0.5 %; Lymphocytes # (auto) 2.09 K/uL (1.20-3.40); Lymphocytes % (auto) 24.3 %; Mean Corpuscular Hemoglobin 32.8 pg (25.0-34.0); Mean Corpuscular Volume 96.5 fL (80.0-100.0); Mean Platelet Volume 9.1 fL (9.4-12.4); Monocytes # (auto) 0.67 K/uL (0.11-0.59); Monocytes % (auto) 7.8 %; Neutrophils # (auto) 5.47 K/uL (1.40-6.50); Neutrophils % (auto) 63.6 %; Platelet Count 270 K/uL (130-400); RDW Coefficient of Variation 12.8 % (11.5-14.5); RDW Standard Deviation 45.5 fL (36.4-46.3); Red Blood Count 3.72 M/uL (4.20-5.40)
[2024-06-05 07:23] LABS: BUN Creatinine Ratio 10.7 (10-20); Calcium 8.9 mg/dl (8.6-10.3); Creatinine Clr Calc Pharmacy 65.9 ml/min; Magnesium 1.9 mg/dl (1.7-2.4); Potassium 4.9 mmol/L (3.5-5.1)
--- NOTE | 2024-06-05 07:46 | XRay Report ---
EXAM: XR chest 1V portable CLINICAL HISTORY: f/u. FOLLOW UP KAA TECHNIQUE: An X-ray image of the chest is obtained in AP projection. COMPARISON: CT and CR studies dated 06/04/2023. FINDINGS: Pulmonary Parenchyma: Redemonstration of bilateral lower zone opacities with obliteration of both costophrenic angles, in keeping with bilateral pleural effusion and basal collapse, more at the left side. Heart and Mediastinum: Heart size and shape are normal. No mediastinal widening or masses. No hilar or mediastinal lymphadenopathy. Bony Thorax: Bony thorax appears intact without fractures or deformities. Soft Tissues: Soft tissues overlying the chest wall are unremarkable. IMPRESSION: 1. Relative increase in bilateral lower zone opacities with obliteration of both costophrenic angles, in keeping with bilateral pleural effusion and basal collapse (confirmed in CT chest), more at the left side. 2. No interval changes. Electronically signed by Olvin Dhillon 06-05-2024 07:46 AM
--- NOTE | 2024-06-05 08:00 | Pulmonology Progress Note ---
Date of Service June 05, 2024 Assessment & Plan (1) COPD with emphysema: (2) Fracture, ribs: Encounter type: initial encounter Fracture type: closed L aterality: right Qualified Code(s): S22.41XA - Multiple fractures of ribs, right side, initial encounter for closed fracture (3) Abnormal chest CT: (4) Mucus plugging of bronchi: (5) Current smoker: Plan CT chest 06/03/2024 personally reviewed: Bilateral apical pleural scarring Centrilobular emphysema appreciated bilaterally Atelectasis of the left lower lobe No significant mediastinal lymphadenopathy -- Left lower lobe collapse With probable mucous plugging Procalcitonin negative --COPD with emphysema Not on any any inhalers at home Recommend outpatient follow-up with pulmonary On discharge recommend Stiolto or Anoro inhaler -- Acute rib fractures on the right side Pain management as per primary team I do not see any significant parenchymal abnormality on the CT chest -- History of lung cancer in maternal grandfather who was a smoker Plan: Continue with nebulized formoterol and budesonide Continue with Mucinex Continue with incentive spirometry For bronchoscopy today Risk and benefit of the procedure explained to the patient in depth. Patient understands and wants to go ahead with the procedures Consent signed, witnessed and put in the chart Case was discussed with primary team as well as RN at bedside Please note the above document was generated using voice recognition software. It may contain grammatical, syntax or spelling errors.Any formal questions or concerns about the content, text or information contained within the body of this dictation should be directly addressed to the provider for clarification. Admission and Anticipated Discharge Date Admission Date: June 04, 2024 Subjective Patient seen and examined at bedside. No acute distress, no adverse events overnight Still complaining of chest pain on the right side which is better controlled with pain medication Occasional cough with clear phlegm, denies any hemoptysis Has been afebrile Is n.p.o. for bronchoscopy today Denies any headache Review of Systems 2 Review of Systems: All systems reviewed & are unremarkable except as noted in Subjective Physical Exam 2 Physical Exam: Constitutional: No acute distress, frail-appearing HEENT: EOMI, PERRLA Respiratory system: Decreased air entry bilaterally, no wheeze, no rhonchi, positive crackles left lower lobe CVS: S1-S2 positive, no murmurs or gallops Abdomen: Soft, nontender, nondistended, positive bowel sounds x4 Extremities: +2 pulses bilaterally radialis/ dorsalis pedis, no cyanosis, no edema Neuro: Awake alert oriented x3 Psych: Normal mood and affect G/U: No Zacarias Skin: no rashes, warm and dry Lymphatic: no cervical or axillary lymphadenopathy Results & Data Results & Data Vital Signs (Past 12 Hours) Vital Signs Temp Pulse Pulse Pulse Resp BP Pulse Ox 06/05/24 07:46 66 18 93 06/05/24 07:31 66 16 166/93 H 99 06/05/24 06:58 62 06/05/24 03:21 37.2 C 73 18 144/83 H 95 06/04/24 23:18 36.7 C 72 18 116/78 96 06/04/24 22:47 67 06/04/24 21:36 57 L 18 97 O2 Del Method 06/05/24 07:46 Room Air 06/05/24 07:31 Room Air 06/05/24 06:58 06/05/24 03:21 Room Air 06/04/24 23:18 Room Air 06/04/24 22:47 06/04/24 21:36 Room Air Laboratory Results 06/05/24 05:52 06/05/24 05:52 PG Care Time/CCT Total # of Minutes Spent Total Time Spent with Patient: Total time spent is greater than 50% in coordination of care (as documented) at patient's floor/unit and/or counseling patient: Coding Level of Care Code 71457 SUB INP/OBS CARE 3/50MIN Diagnoses COPD with emphysema J43.9 Fracture, ribs S22.41XA Encounter type: initial encounter Fracture type: closed Laterality: right Abnormal chest CT R93.89 Mucus plugging of bronchi T17.500A Current smoker F17.200
--- NOTE | 2024-06-05 08:01 | Pre Anesthesia Assessment ---
Date of Service June 05, 2024 Pre Sedation Assessment Vital Signs Temp Pulse Pulse Pulse Resp BP Pulse Ox 06/05/24 07:46 66 18 93 06/05/24 07:31 66 16 166/93 H 99 06/05/24 06:58 62 06/05/24 03:21 37.2 C 73 18 144/83 H 95 06/04/24 23:18 36.7 C 72 18 116/78 96 06/04/24 22:47 67 06/04/24 21:36 57 L 18 97 06/04/24 19:39 36.6 C 68 20 152/74 H 96 06/04/24 15:41 36.6 C 63 18 132/81 94 06/04/24 14:12 81 06/04/24 11:37 36.6 C 72 20 119/78 96 O2 Del Method 06/05/24 07:46 Room Air 06/05/24 07:31 Room Air 06/05/24 06:58 06/05/24 03:21 Room Air 06/04/24 23:18 Room Air 06/04/24 22:47 06/04/24 21:36 Room Air 06/04/24 19:39 Room Air 06/04/24 15:41 Room Air 06/04/24 14:12 06/04/24 11:37 Room Air Pre-Sedation Airway Assessment Smoking Status: Current every day smoker ASA: ASA3 Procedure Planning Contraindications for Sedation: none Current Medications Reviewed: Yes Notes The planned sedation has been discussed with the patient. Informed Consent was obtained. I have identified the patient, determined the appropriateness of sedation and have assessed the patient immediately prior to the procedure. All medicine(s) and interventions are by my order.
--- NOTE | 2024-06-05 08:38 | Post Anesthesia Assessment ---
Date of Service June 05, 2024 Post Sedation Assessment Vital Signs Temp Pulse Pulse Pulse Resp BP BP 06/05/24 08:28 82 14 152/70 H 06/05/24 08:21 79 14 180/81 H 168/73 H 06/05/24 08:18 66 14 130/66 06/05/24 07:46 66 18 06/05/24 07:31 66 16 166/93 H 06/05/24 06:58 62 06/05/24 03:21 37.2 C 73 18 144/83 H 06/04/24 23:18 36.7 C 72 18 116/78 06/04/24 22:47 67 06/04/24 21:36 57 L 18 06/04/24 19:39 36.6 C 68 20 152/74 H 06/04/24 15:41 36.6 C 63 18 132/81 06/04/24 14:12 81 06/04/24 11:37 36.6 C 72 20 119/78 Pulse Ox O2 Del Method 06/05/24 08:28 06/05/24 08:21 06/05/24 08:18 06/05/24 07:46 93 Room Air 06/05/24 07:31 99 Room Air 06/05/24 06:58 06/05/24 03:21 95 Room Air 06/04/24 23:18 96 Room Air 06/04/24 22:47 06/04/24 21:36 97 Room Air 06/04/24 19:39 96 Room Air 06/04/24 15:41 94 Room Air 06/04/24 14:12 06/04/24 11:37 96 Room Air Discharge Sedation Level of Care: Fast Track Phase II Post Sedation Plan On clinical assessment, the patient appears to have tolerated the sedation without complications. Patient is recovering as anticipated. Patient will continue to be monitored by nursing and may be discharged when sedation discharge criteria are met per below protocol. Upon Completions of procedure up to 15 minutes continue every 5 minute vital signs and the P.A.R. score; then discharge to a Phase I or Fast Track to Phase II per the following guidelines: * Discharge Patient to appropriate Phase II area if PAR is 8 or greater or return to pre- procedure baseline. The post - procedure orders will be as directed. * If PAR score is less than 8 or not return to pre-procedure baseline then patient will follow Phase I monitoring till PAR is reached for Phase II. The Phase I may be done in procedure room or may call to secure a Phase I area. * If naloxone or flumazenil are used for reversal, hold in Phase I for continued monitoring from when last reversal dose was given for a minimum of 60 minutes or longer pending the nurse and/or physician discretion of patient condition before discharge to Phase II. Please call the Sedation Physician to re-evaluate and complete post-note for discharge to Phase II area. Do NOT discharge from procedure sedation or Phase 1 until post- sedation evaluation note is complete by procedure /sedation MD Sedation Discharge Instructions to be given to the patient at discharge to home.
--- NOTE | 2024-06-05 08:56 | Procedure Note ---
Procedure Note: Bronchoscopy Procedure PREOPERATIVE DIAGNOSIS: Left lower lobe collapse POSTOPERATIVE DIAGNOSIS: Minimal bronchial secretions, nonobstructive narrowing at the uptake of left lower lobe PROCEDURE PERFORMED: Flexible fiberoptic bronchoscopy with bronchoalveolar lavage COMPLICATIONS: None. INDICATION: Clearing of the mucous plugging, ruling out endobronchial lesion PROCEDURE: After obtaining an informed consent, the patient was brought to the Bronchoscopy Suite. The patient had appropriate oxygen, blood pressure, heart rate, and respiratory rate monitoring applied and monitored continuously throughout the procedure. Supplemental oxygen via nasal cannula as per nursing records was applied to the nasopharynx with adequate saturations achieved. Topical anesthesia with nebulized 1% lidocaine was achieved. Subsequent to this, the patient was premedicated with 5 mg of midazolam and 100 mcg of fentanyl. Sedation start: 8:15 AM Sedation end: 8:32 AM Patient's nares were narrow to pass the scope. Decision was to go through oral airway and bite-block was used Upper Airway: The oropharynx and larynx were well visualized and showed normal mucosa There was normal vocal cord motion without masses or lesions. Additional topical anesthesia with 1% lidocaine was applied to the trachea and phyllis. The trachea appeared normal.The bronchoscope was then advanced through the phyllis, which was sharp. The scope was then advanced into the right main stem and each segment, subsegement in the right upper lobe, right middle lobe and right lower lobe were visualized. There was minimal amount of clear secretion which was suctioned out. There were no other findings including evidence of mass, anatomic distortions, or hemorrhage. The bronchoscope was subsequently withdrawn and advanced into the left mainstem. Again, each segment and subsegment was well visualized. There was nonobstructive narrowing at the uptake of the left lower lobe. I was able to pass the scope without any issues. The left lower lobe did collapse totally whenever patient was coughing. There was moderate amount of grayish secretion which were suctioned out The bronchoscope was then wedged in the left lower lobe and bronchoalveolar lavage samples were obtained. 120 ml of saline was instilled and 40 ml of fluid was aspirated back.The bronchoscope was withdrawn and the area was suctioned clear. The bronchoscope was then withdrawn to the mainstem. The area was suctioned clear. The bronchoscope was then withdrawn. The patient tolerated the procedure well without evidence of desaturation or complications. Bronchoalveolar lavage samples were sent for cell count, Gram stain and bacterial culture, AFB culture and smear, fungal culture and smear and cytology Recommendations: Follow-up micro and cytology Follow-up chest x-ray Please note the above document was generated using voice recognition software. It may contain grammatical, syntax or spelling errors.Any formal questions or concerns about the content, text or information contained within the body of this dictation should be directly addressed to the provider for clarification. [facility] [place] Procedure Codes (Charges) Pulmonary/Thoracic Procedure 1: Pulmonary and Thoracic: 36138 Dx bronchoscopy/BAL Sedation/Anesthesia Procedure 1: Sedation/Anesthesia: 88249 Mod Sedation by the same physician;Init15 Min Child Age 5 & Up
[2024-06-05] MEDS: fentaNYL citrate PF 100 MCG/2 ML VIAL ONE (09:22)
[2024-06-05] MEDS: MIDAZOLAM HCL 5 MG/ML 1 ML VIAL ONE (09:22)
--- NOTE | 2024-06-05 09:24 | XRay Report ---
XR chest 1V portable CLINICAL HISTORY: Post Bronchoscopy COMPARISON STUDY: Chest CT June 03, 2024. Chest radiograph performed earlier today. FINDINGS: There is no pneumothorax. Small left pleural effusion is present. Left lower lobe airspace opacity with volume loss is again noted. There is mild right basilar opacity. Pulmonary vascularity i s normal. Cardiomediastinal silhouette is normal. IMPRESSION: 1. No pneumothorax. 2. Persistent left basilar opacity which may represent pneumonia or atelectasis. Small left pleural e ffusion. 3. Minimal right basilar opacity which favors atelectasis. ACT 112: Negative or not required by law. Electronically signed by: Brian Victor M.D. 06/05/2024 9:23 AM
[2024-06-05 11:40] LABS: Fluid Mono/Macrophage 90 %; Lymphocyte Body Fluid Man 2 %; Neutrophil Body Fluid Man 8 %
[2024-06-05] MEDS: POLYETHYLENE (MIRALAX) 17 GM PACK PO PRN (13:11)
--- NOTE | 2024-06-05 13:14 | Hospitalist Progress Note ---
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 Seems On May 28, 2024 patient tripped over a mat and fell on the bathroom tub on the right side of the chest. Did not hit her head. No loss of consciousness. No other injuries. For couple of days she was sore on right side chest but then the pain got worse. Went to PCP and imaging studies were done which showed small right pleural effusion and 2 rib fractures were noted. She was prescribed pain medication. The pain is not getting better so she came to the ER today. Denies any shortness of of breath. Denies cough. No fevers. Cannot take deep breath. No headache. No runny nose or sore throat. No blurred vision or double vision. Appetite is okay. No nausea. No abdominal pain. Normal bowel and bladder movements. Ambulating okay. Hemodynamics are okay. Contusion of lung Status post fall in the bathroom tub on the right side of the rib cage Shortness of breath secondary to pain and rib fracture Will observe for any worsening of the contusion Appreciate pulmonary input and recommendation Ongoing tobacco abuse Counseling 06/05 Respiratory status stable Hemoglobin stable overall Continue to monitor closely (2) Fracture, ribs: Plan: CT scan showing acutely displaced fractures of posterior ribs 9-10. Extrapleural hematoma formation. Pain control Will give cough medicine to suppress cough and decrease pain 06/05 Pain manageable as per patient Add Lidoderm patch Encouraged to use incentive spirometry (3) Mucus plugging of bronchi: Plan: Partial left lower lobe collapse. Left lower lobe mucous plugging or aspiration. Possible mild pulmonary contusions in the right middle lobe and lateral left upper lobe. Trace bilateral pleural effusions. Appreciate pulmonary input and recommendation Will have bronchoscopy tomorrow 06/05 Status post bronchoscopy today by Dr. Rojas (4) COPD with emphysema: Plan: History of COPD with ongoing smoking No acute exacerbation but complicating recent refracture Plan DVT prophylaxis SCDs for now Disposition anticipate discharge to home tomorrow Admission and Anticipated Discharge Date Admission Date: June 04, 2024 Subjective follow-up status post mechanical fall, right rib fractures, extrapleural hematoma, left lower lobe mucoid impaction, etc. Seen resting in bed, sleeping but easily awakened Status post bronchoscopy this morning States she feels okay overall Right lower lateral rib pain improving No shortness of breath Denies cough, fevers or chills No other new symptom Review of Systems Review of Systems: all noted and negative except for above Physical Exam Physical Exam: General- oriented x 3, not in distress, speaks in sentences with no effort or accessory muscle use Eyes- anicteric Neck- no JVD Lungs- clear breath sounds bilaterally, mild rales left lower base Heart- normal rate, regular rhythm; no murmurs Abdomen- normal bowel sounds, nondistended, soft, nontender Extremities- no pretibial edema, no calf tenderness Neuro- alert, oriented x 3; no gross focal neurologic deficits Skin- warm & dry Results & Data Results & Data Vital Signs (Past 12 Hours) Vital Signs Temp Pulse Pulse Pulse Resp BP BP 06/05/24 11:15 36.7 C 65 17 130/82 06/05/24 09:05 76 16 136/66 06/05/24 08:51 80 16 147/66 H 06/05/24 08:34 78 16 147/66 H 06/05/24 08:30 06/05/24 08:28 82 14 152/70 H 06/05/24 08:21 79 14 180/81 H 168/73 H 06/05/24 08:18 66 14 130/66 06/05/24 07:46 66 18 06/05/24 07:31 66 16 166/93 H 06/05/24 07:30 06/05/24 06:58 62 06/05/24 03:21 37.2 C 73 18 144/83 H Pulse Ox O2 Del Method O2 Flow Rate 06/05/24 11:15 94 Room Air 06/05/24 09:05 98 Room Air 5 06/05/24 08:51 98 Oxymask 5 06/05/24 08:34 100 Oxymask 5 06/05/24 08:30 Oxymask 06/05/24 08:28 06/05/24 08:21 06/05/24 08:18 06/05/24 07:46 93 Room Air 06/05/24 07:31 99 Room Air 06/05/24 07:30 Room Air 06/05/24 06:58 06/05/24 03:21 95 Room Air all noted and reviewed including below (1) Contusion of lung Encounter type: initial encounter Laterality: unspecified laterality Qualified Code(s): S27.329A - Contusion of lung, unspecified, initial encounter (2) Fracture, ribs Encounter type: initial encounter Fracture type: closed Laterality: right Qualified Code(s): S22.41XA - Multiple fractures of ribs, right side, initial encounter for closed fracture
[2024-06-05] MEDS: LIDOCAINE 5% 1 PATCH TD SCH (14:57)
[2024-06-05] MEDS: DOCUSATE SODIUM/SENNA 50/8.6MG TAB PO SCH (20:42)
[2024-06-05] MEDS: LACTULOSE SYRUP 30 GM/45 ML UDP PO STA (20:42)
--- NOTE | 2024-06-05 22:32 | Electrocardiogram Report ---
Test Reason : Blood Pressure : */* mmHG Vent. Rate : 99 BPM Atrial Rate : 99 BPM P-R Int : 146 ms QRS Dur : 84 ms QT Int : 350 ms P-R-T Axes : 81 -18 67 degrees QTcB Int : 449 ms Normal sinus rhythm Possible Left atrial enlargement Possible Inferior infarct , age undetermined Cannot rule out Anterior infarct , age undetermined Abnormal ECG When compared with ECG of 25-Oct-2023 12:58, QRS axis Shifted right Borderline criteria for Inferior infarct are now Present T wave amplitude has decreased in Anterior leads Confirmed by Valente Cox ([id number] on 06/05/2024 10:32:27 PM Referred By: REFERRED SELF Confirmed By: Valente Cox
--- NOTE | 2024-06-06 10:22 | Pulmonology Progress Note ---
Date of Service June 06, 2024 Assessment & Plan (1) COPD with emphysema: (2) Fracture, ribs: Encounter type: initial encounter Fracture type: closed L aterality: right Qualified Code(s): S22.41XA - Multiple fractures of ribs, right side, initial encounter for closed fracture (3) Abnormal chest CT: (4) Mucus plugging of bronchi: (5) Current smoker: Plan CT chest 06/03/2024 personally reviewed: Bilateral apical pleural scarring Centrilobular emphysema appreciated bilaterally Atelectasis of the left lower lobe No significant mediastinal lymphadenopathy -- Left lower lobe collapse With probable mucous plugging Procalcitonin negative S/p bronchoscopy 06/05/2024. No clear mucous plugging There was partial nonobstructing narrowing at the uptake of the left lower lobe, it did collapse on coughing. No endobronchial lesion --COPD with emphysema Not on any any inhalers at home Recommend outpatient follow-up with pulmonary On discharge recommend Stiolto or Anoro inhaler -- Acute rib fractures on the right side Pain management as per primary team I do not see any significant parenchymal abnormality on the CT chest -- History of lung cancer in maternal grandfather who was a smoker Plan: Chest x-ray from today personally reviewed, shows improved aeration in the left lower lobe Continue with nebulized formoterol and budesonide. On discharge either Anoro or Stiolto Continue with Mucinex incentive spirometer and flutter valve even at home Outpatient pulmonary follow-up Case was discussed with primary team Please note the above document was generated using voice recognition software. It may contain grammatical, syntax or spelling errors.Any formal questions or concerns about the content, text or information contained within the body of this dictation should be directly addressed to the provider for clarification. Admission and Anticipated Discharge Date Admission Date: June 04, 2024 Subjective Patient seen and examined at bedside. No acute distress, no adverse events overnight She was saturating 97% on room air The right-sided chest pain has decreased in intensity Has been using lidocaine patch, heating pad Coughing up clear phlegm. Denies any hemoptysis Fair appetite, no nausea or vomiting Review of Systems 2 Review of Systems: All systems reviewed & are unremarkable except as noted in Subjective Physical Exam 2 Physical Exam: Constitutional: No acute distress, frail-appearing HEENT: EOMI, PERRLA Respiratory system: Decreased air entry bilaterally, no wheeze, no rhonchi, no crackles CVS: S1-S2 positive, no murmurs or gallops Abdomen: Soft, nontender, nondistended, positive bowel sounds x4 Extremities: +2 pulses bilaterally radialis/ dorsalis pedis, no cyanosis, no edema Neuro: Awake alert oriented x3 Psych: Normal mood and affect G/U: No Zacarias Skin: no rashes, warm and dry Lymphatic: no cervical or axillary lymphadenopathy Results & Data Results & Data Vital Signs (Past 12 Hours) Vital Signs Temp Pulse Pulse Resp BP BP Pulse Ox 06/06/24 09:00 63 06/06/24 07:32 36.7 C 73 19 148/65 H 95 06/06/24 07:19 92 H 18 96 06/06/24 03:03 36.8 C 74 18 139/78 96 06/05/24 22:46 37.1 C 78 18 142/75 H 93 O2 Del Method 06/06/24 09:00 06/06/24 07:32 Room Air 06/06/24 07:19 Room Air 06/06/24 03:03 Room Air 06/05/24 22:46 Room Air Laboratory Results 06/05/24 05:52 06/05/24 05:52 PG Care Time/CCT Total # of Minutes Spent Total Time Spent with Patient: Total time spent is greater than 50% in coordination of care (as documented) at patient's floor/unit and/or counseling patient: Coding Level of Care Code 15705 SUB INP/OBS CARE 2/35MIN Diagnoses COPD with emphysema J43.9 Fracture, ribs S22.41XA Encounter type: initial encounter Fracture type: closed Laterality: right Abnormal chest CT R93.89 Mucus plugging of bronchi T17.500A Current smoker F17.200
--- NOTE | 2024-06-06 10:50 | XRay Report ---
XR chest 1V portable CLINICAL HISTORY: f/u COMPARISON STUDY: 06/05/2024 FINDINGS: Single view chest demonstrates slight clearing of a left basilar opacity. Persistent airspa ce opacity and discoid atelectasis are noted. The hazy opacity at the right lung base is unchanged. N o new lesions have developed. No pneumothorax. Heart size and pulmonary vascularity are unremarkable. IMPRESSION: Slight improvement left basilar opacity; otherwise stable exam ACT 112: Negative or not required by law. Electronically signed by: Rosario Espinosa M.D. 06/06/2024 10:49 AM
[2024-06-06] MEDS: KETOROLAC TROMETHAMINE 15 MG/ML VIAL IV PRN (13:00)
--- NOTE | 2024-06-06 16:40 | Hospitalist Progress Note ---
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 Seems On May 28, 2024 patient tripped over a mat and fell on the bathroom tub on the right side of the chest. Did not hit her head. No loss of consciousness. No other injuries. For couple of days she was sore on right side chest but then the pain got worse. Went to PCP and imaging studies were done which showed small right pleural effusion and 2 rib fractures were noted. She was prescribed pain medication. The pain is not getting better so she came to the ER today. Denies any shortness of of breath. Denies cough. No fevers. Cannot take deep breath. No headache. No runny nose or sore throat. No blurred vision or double vision. Appetite is okay. No nausea. No abdominal pain. Normal bowel and bladder movements. Ambulating okay. Hemodynamics are okay. Contusion of lung Status post fall in the bathroom tub on the right side of the rib cage Shortness of breath secondary to pain and rib fracture Will observe for any worsening of the contusion Appreciate pulmonary input and recommendation Ongoing tobacco abuse Counseling 06/05 Respiratory status stable Hemoglobin stable overall Continue to monitor closely 06/06 remains stable on room air (2) Fracture, ribs: Plan: CT scan showing acutely displaced fractures of posterior ribs 9-10. Extrapleural hematoma formation. Pain control Will give cough medicine to suppress cough and decrease pain 06/05 Pain manageable as per patient Add Lidoderm patch Encouraged to use incentive spirometry 06/06 add Toradol for pain control (3) Mucus plugging of bronchi: Plan: Partial left lower lobe collapse. Left lower lobe mucous plugging or aspiration. Possible mild pulmonary contusions in the right middle lobe and lateral left upper lobe. Trace bilateral pleural effusions. Appreciate pulmonary input and recommendation Will have bronchoscopy tomorrow 06/05 Status post bronchoscopy today by Dr. Rojas 06/06 stable ff up bronchial fluid culture (4) COPD with emphysema: Plan: History of COPD with ongoing smoking No acute exacerbation but complicating recent refracture 06/06 d/c on Anoro Plan DVT prophylaxis SCDs for now Disposition anticipate discharge to home tomorrow Admission and Anticipated Discharge Date Admission Date: June 04, 2024 Subjective ff up for rib fx etc seen resting in bed, not in distress was still having significant rib pain earlier today no cough, shortness of breath no other symptoms Review of Systems Review of Systems: all noted and negative except for above Physical Exam Physical Exam: General- oriented x 3, not in distress, speaks in sentences with no effort or accessory muscle use Eyes- anicteric Neck- no JVD Lungs- clear breath sounds bilaterally, no rales/wheezes mild tenderness R lateral rib region Heart- normal rate, regular rhythm; no murmurs Abdomen- normal bowel sounds, nondistended, soft, nontender Extremities- no pretibial edema, no calf tenderness Neuro- alert, oriented x 3; no gross focal neurologic deficits Skin- warm & dry Results & Data Results & Data Vital Signs (Past 12 Hours) Vital Signs Temp Pulse Pulse Resp BP BP Pulse Ox 06/06/24 15:03 37.3 C 76 18 149/71 H 96 06/06/24 13:00 72 06/06/24 11:20 36.7 C 72 17 134/70 96 06/06/24 09:00 63 06/06/24 07:32 36.7 C 73 19 148/65 H 95 06/06/24 07:19 92 H 18 96 O2 Del Method 06/06/24 15:03 Room Air 06/06/24 13:00 06/06/24 11:20 Room Air 06/06/24 09:00 06/06/24 07:32 Room Air 06/06/24 07:19 Room Air all noted and reviewed including below (1) Contusion of lung Encounter type: initial encounter Laterality: unspecified laterality Qualified Code(s): S27.329A - Contusion of lung, unspecified, initial encounter (2) Fracture, ribs Encounter type: initial encounter Fracture type: closed Laterality: right Qualified Code(s): S22.41XA - Multiple fractures of ribs, right side, initial encounter for closed fracture
--- NOTE | 2024-06-07 07:04 | Pulmonology Progress Note ---
Date of Service June 07, 2024 Assessment & Plan (1) COPD with emphysema: (2) Fracture, ribs: Encounter type: initial encounter Fracture type: closed L aterality: right Qualified Code(s): S22.41XA - Multiple fractures of ribs, right side, initial encounter for closed fracture (3) Abnormal chest CT: (4) Mucus plugging of bronchi: (5) Current smoker: Plan CT chest 06/03/2024 personally reviewed: Bilateral apical pleural scarring Centrilobular emphysema appreciated bilaterally Atelectasis of the left lower lobe No significant mediastinal lymphadenopathy -- Left lower lobe collapse With probable mucous plugging Procalcitonin negative S/p bronchoscopy 06/05/2024. No clear mucous plugging There was partial nonobstructing narrowing at the uptake of the left lower lobe, it did collapse on coughing. No endobronchial lesion --COPD with emphysema Not on any any inhalers at home Recommend outpatient follow-up with pulmonary On discharge recommend Stiolto or Anoro inhaler -- Acute rib fractures on the right side Pain management as per primary team I do not see any significant parenchymal abnormality on the CT chest -- History of lung cancer in maternal grandfather who was a smoker Plan: Continue with nebulized formoterol and budesonide. On discharge either Anoro or Stiolto Continue with Mucinex, incentive spirometer and flutter valve even at home Outpatient pulmonary follow-up Case was discussed with primary team Please note the above document was generated using voice recognition software. It may contain grammatical, syntax or spelling errors.Any formal questions or concerns about the content, text or information contained within the body of this dictation should be directly addressed to the provider for clarification. Admission and Anticipated Discharge Date Admission Date: June 04, 2024 Subjective Patient seen and examined at bedside. No acute distress, no adverse events overnight Still complaining of some soreness on the right side but much better compared to when she presented to the hospital Denies any shortness of breath. Coughing up clear phlegm. Denies any hemoptysis No nausea or vomiting Fair appetite Review of Systems 2 Review of Systems: All systems reviewed & are unremarkable except as noted in Subjective Physical Exam 2 Physical Exam: Constitutional: No acute distress, frail-appearing HEENT: EOMI, PERRLA Respiratory system: Good air entry bilaterally, no wheeze, no rhonchi, no crackles CVS: S1-S2 positive, no murmurs or gallops Abdomen: Soft, nontender, nondistended, positive bowel sounds x4 Extremities: +2 pulses bilaterally radialis/ dorsalis pedis, no cyanosis, no edema Neuro: Awake alert oriented x3 Psych: Normal mood and affect G/U: No Zacarias Skin: no rashes, warm and dry Lymphatic: no cervical or axillary lymphadenopathy Results & Data Results & Data Vital Signs (Past 12 Hours) Vital Signs Temp Pulse Pulse Resp BP Pulse Ox O2 Del Method 06/07/24 04:15 36.5 C 72 18 147/80 H 96 Room Air 06/07/24 01:10 36.6 C 68 18 145/70 H 96 Room Air 06/06/24 21:40 75 06/06/24 20:23 60 16 97 Room Air 06/06/24 19:27 36.9 C 68 18 149/69 H 95 Room Air Laboratory Results 06/05/24 05:52 06/05/24 05:52 PG Care Time/CCT Total # of Minutes Spent Total Time Spent with Patient: Total time spent is greater than 50% in coordination of care (as documented) at patient's floor/unit and/or counseling patient: Coding Level of Care Code 68051 SUB INP/OBS CARE 2/35MIN Diagnoses COPD with emphysema J43.9 Fracture, ribs S22.41XA Encounter type: initial encounter Fracture type: closed Laterality: right Abnormal chest CT R93.89 Mucus plugging of bronchi T17.500A Current smoker F17.200
[2024-06-07 11:07] VITALS: BP 151/81; RESP 17; TEMP 97.9; O2SAT 96
[2024-06-07 11:16] VITALS: PULSE 76
--- NOTE | 2024-06-07 17:26 | Hospitalist Progress Note ---
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 Seems On May 28, 2024 patient tripped over a mat and fell on the bathroom tub on the right side of the chest. Did not hit her head. No loss of consciousness. No other injuries. For couple of days she was sore on right side chest but then the pain got worse. Went to PCP and imaging studies were done which showed small right pleural effusion and 2 rib fractures were noted. She was prescribed pain medication. The pain is not getting better so she came to the ER today. Denies any shortness of of breath. Denies cough. No fevers. Cannot take deep breath. No headache. No runny nose or sore throat. No blurred vision or double vision. Appetite is okay. No nausea. No abdominal pain. Normal bowel and bladder movements. Ambulating okay. Hemodynamics are okay. Contusion of lung Status post fall in the bathroom tub on the right side of the rib cage Shortness of breath secondary to pain and rib fracture Will observe for any worsening of the contusion Appreciate pulmonary input and recommendation Ongoing tobacco abuse Counseling 06/05 Respiratory status stable Hemoglobin stable overall Continue to monitor closely 06/06 remains stable on room air 06/07 Remains stable on room air (2) Fracture, ribs: Plan: CT scan showing acutely displaced fractures of posterior ribs 9-10. Extrapleural hematoma formation. Pain control Will give cough medicine to suppress cough and decrease pain 06/05 Pain manageable as per patient Add Lidoderm patch Encouraged to use incentive spirometry 06/06 add Toradol for pain control 06/07 pain improving Continue as needed oxycodone and Tylenol at home Emphasized need to use spirometry and flutter valve at home to prevent atelectasis Patient verbalized understanding and agreement (3) Mucus plugging of bronchi: Plan: Partial left lower lobe collapse. Left lower lobe mucous plugging or aspiration. Possible mild pulmonary contusions in the right middle lobe and lateral left upper lobe. Trace bilateral pleural effusions. Appreciate pulmonary input and recommendation Will have bronchoscopy tomorrow 06/05 Status post bronchoscopy today by Dr. Rojas 5/2 Remained on room air Bronchial fluid Bacterial culture: Negative Bronchial fluid AFB and fungal culture: Pending, Please follow-up Sputum culture: Normal benjamin Continue Mucinex, incentive spirometry and flutter valve Follow-up with mental health program specialist Dr. Rojas of [facility] in 1 week (4) COPD with emphysema: Plan: History of COPD with ongoing smoking No acute exacerbation but complicating recent refracture 5/2 Received nebulized budesonide and formoterol as inpatient Transition to an oral Ellipta daily upon discharge Pulmonology follow-up in 1 week (5) Hematochezia: Plan: Patient reports 1 episode of blood-tinged stool with bowel movement this morning Denies abdominal pain, pain with bowel movement Reports last colonoscopy was around 2 years ago, reports father has a history of colon cancer will need close workup, management, monitoring as an outpatient given history of colon cancer with her father Patient strongly advised to discuss above with PCP, she verbalized understanding and agreement Plan discharge to home PCP follow-up in 1 week Pulmonology follow-up in 1 week plan of care discussed with patient in detail and at length all questions answered she is understanding, agreeable, comfortable with the plan of care Admission and Anticipated Discharge Date Admission Date: June 04, 2024 Subjective follow-up for rib fractures, lung contusion, left lower lobe mucous plugging, etc. Seen resting in bed, comfortable, not in distress, in good spirits States she feels improving overall Still having some more right rib pain but more manageable No shortness of breath, cough, hemoptysis Reported 1 episode of hematochezia, blood tinged stool this morning Denies pain with bowel movement, constipation Review of Systems Review of Systems: all noted and negative except for above Physical Exam Physical Exam: General- oriented x 3, not in distress, speaks in sentences with no effort or accessory muscle use Eyes- anicteric Neck- no JVD Lungs- clear breath sounds bilaterally, no rales/wheezes Heart- normal rate, regular rhythm; no murmurs Abdomen- normal bowel sounds, nondistended, soft, nontender Extremities- no pretibial edema, no calf tenderness Neuro- alert, oriented x 3; no gross focal neurologic deficits Skin- warm & dry Results & Data Results & Data Vital Signs (Past 12 Hours) Vital Signs Temp Pulse Pulse Pulse Resp BP BP 06/07/24 11:13 36.6 C 76 72 17 151/81 H 147/80 H 06/07/24 10:33 36.6 C 72 17 151/81 H 06/07/24 07:50 36.9 C 81 16 163/81 H 06/07/24 07:08 71 16 06/07/24 07:06 87 Pulse Ox O2 Del Method 06/07/24 11:13 96 06/07/24 10:33 96 Room Air 06/07/24 07:50 94 Room Air 06/07/24 07:08 95 Room Air 06/07/24 07:06 all noted and reviewed including below (1) Contusion of lung Encounter type: initial encounter Laterality: unspecified laterality Qualified Code(s): S27.329A - Contusion of lung, unspecified, initial encounter (2) Fracture, ribs Encounter type: initial encounter Fracture type: closed Laterality: right Qualified Code(s): S22.41XA - Multiple fractures of ribs, right side, initial encounter for closed fracture
--- NOTE | 2024-06-07 17:27 | Discharge Summary ---
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 Seems On May 28, 2024 patient tripped over a mat and fell on the bathroom tub on the right side of the chest. Did not hit her head. No loss of consciousness. No other injuries. For couple of days she was sore on right side chest but then the pain got worse. Went to PCP and imaging studies were done which showed small right pleural effusion and 2 rib fractures were noted. She was prescribed pain medication. The pain is not getting better so she came to the ER today. Denies any shortness of of breath. Denies cough. No fevers. Cannot take deep breath. No headache. No runny nose or sore throat. No blurred vision or double vision. Appetite is okay. No nausea. No abdominal pain. Normal bowel and bladder movements. Ambulating okay. Hemodynamics are okay. Contusion of lung Status post fall in the bathroom tub on the right side of the rib cage Shortness of breath secondary to pain and rib fracture Will observe for any worsening of the contusion Appreciate pulmonary input and recommendation Ongoing tobacco abuse Counseling 06/05 Respiratory status stable Hemoglobin stable overall Continue to monitor closely 06/06 remains stable on room air 06/07 Remains stable on room air (2) Fracture, ribs: CT scan showing acutely displaced fractures of posterior ribs 9-10. Extrapleural hematoma formation. Pain control Will give cough medicine to suppress cough and decrease pain 06/05 Pain manageable as per patient Add Lidoderm patch Encouraged to use incentive spirometry 06/06 add Toradol for pain control 06/07 pain improving Continue as needed oxycodone and Tylenol at home Emphasized need to use spirometry and flutter valve at home to prevent atelectasis Patient verbalized understanding and agreement (3) Mucus plugging of bronchi: Partial left lower lobe collapse. Left lower lobe mucous plugging or aspiration. Possible mild pulmonary contusions in the right middle lobe and lateral left upper lobe. Trace bilateral pleural effusions. Appreciate pulmonary input and recommendation Will have bronchoscopy tomorrow 06/05 Status post bronchoscopy today by Dr. Rojas 5/2 Remained on room air Bronchial fluid Bacterial culture: Negative Bronchial fluid AFB and fungal culture: Pending, Please follow-up Sputum culture: Normal benjamin Continue Mucinex, incentive spirometry and flutter valve Follow-up with customer insight analyst Dr. Rojas of [facility] in 1 week (4) COPD with emphysema: History of COPD with ongoing smoking No acute exacerbation but complicating recent refracture 5/2 Received nebulized budesonide and formoterol as inpatient Transition to an oral Ellipta daily upon discharge Pulmonology follow-up in 1 week (5) Hematochezia: Patient reports 1 episode of blood-tinged stool with bowel movement this morning Denies abdominal pain, pain with bowel movement Reports last colonoscopy was around 2 years ago, reports father has a history of colon cancer will need close workup, management, monitoring as an outpatient given history of colon cancer with her father Patient strongly advised to discuss above with PCP, she verbalized understanding and agreement (6) Abnormal chest CT: Heart: Coronary artery atherosclerosis. CT head: Brain: Age-related parenchymal volume loss. Mild chronic small vessel ischemic change. Vasculature: Intracranial atherosclerosis. -- will need aspirin and statin after lung contusion resolves Further work up, management, and ff up as outpatient (7) Abnormal CT of the abdomen: Adrenals: Stable thickening of the adrenal gland suggesting hyperplasia. Vasculature: No evidence of vascular injury. Atherosclerosis. No abdominal aortic aneurysm. -- will need aspirin and statin after lung contusion resolves Further work up, management, and ff up as outpatient Plan discharge to home PCP follow-up in 1 week Pulmonology follow-up in 1 week plan of care discussed with patient in detail and at length all questions answered she is understanding, agreeable, comfortable with the plan of care Notes For Next Care Provider patient found to have incidental findings in CT head, chest,abdomen and pelvis showing atherosclerosis of intracranial vessels, coronary arteries, abdominal aorta Will need aspirin and statin Will need further workup, management, monitoring as an outpatient Also reported 1 episode of hematochezia Has history of colon cancer- , father Also needs further workup, management as an outpatient Please refer to assessment and plan for full details Medication Changes From Visit as per medical reconciliation section Admission HPI Per Admitting Provider 69-year-old female with past medical history significant for 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 Seems On May 28, 2024 patient tripped over a mat and fell on the bathroom tub on the right side of the chest. Did not hit her head. No loss of consciousness. No other injuries. For couple of days she was sore on right side chest but then the pain got worse. Went to PCP and imaging studies were done which showed small right pleural effusion and 2 rib fractures were noted. She was prescribed pain medication. The pain is not getting better so she came to the ER today. Denies any shortness of of breath. Denies cough. No fevers. Cannot take deep breath. No headache. No runny nose or sore throat. No blurred vision or double vision. Appetite is okay. No nausea. No abdominal pain. Normal bowel and bladder movements. Ambulating okay. Hemodynamics are okay. Past medical history. As mentioned above Past surgical history. Carpal tunnel surgery. . Colonoscopy. EGD. EGD with biopsy. Hysteroscopy with biopsy. Ligation oviducts. Repair of lunate right wrist. Appendectomy. Removal of your ovaries for tumor. Tonsillectomy. Social history. . Smoking 1 pack a day for last 51 years. No drug use. Drinks 3 glasses of wine per night. Family history. Aunt had breast cancer. Father had colon cancer. Mother had ovarian cancer. Admission Exam Per Admitting Provider General-Not in distress. Head- atraumatic Eyes- PERRL. ENT- oropharynx clear Neck- supple, no JVD. Lungs- clear to auscultation no wheezing or crackles Heart- regular rate and rhythm; no murmur, no gallop. Abdomen- normal bowel sounds, soft, nontender, no distension Extremities- no pretibial edema, no erythema seen Neuro- alert, oriented PERRL, no facial palsy; no dysarthria; moves extremities Discharge Exam General- oriented x 3, not in distress, speaks in sentences with no effort or accessory muscle use Eyes- anicteric Neck- no JVD Lungs- clear breath sounds bilaterally, no rales/wheezes Heart- normal rate, regular rhythm; no murmurs Abdomen- normal bowel sounds, nondistended, soft, nontender Extremities- no pretibial edema, no calf tenderness Neuro- alert, oriented x 3; no gross focal neurologic deficits Skin- warm & dry Updated Medication List Medication Instructions Recorded Confirmed Type medroxyprogesterone 2.5 mg tablet 2.5 mg PO QAM 09/05/18 06/03/24 History ryanvpze-rivl-cymh 8 mg-folic 400 1 tab PO QAM 09/05/18 06/03/24 History mcg-K 50 mcg-lutein 300 mcg tablet (Multivitamin Women 50 Plus) estradiol 0.5 mg tablet 0.5 mg PO QAM 05/25/23 06/03/24 History acetaminophen 325 mg tablet 650 mg (2 x 325 mg) PO Q4H PRN 06/07/24 Rx fever or pain #14 tabs guaifenesin 600 mg tablet, 1,200 mg (2 x 600 mg) PO Q12 7 06/07/24 Rx extended release 12 hr (Mucinex) days #28 tabs oxycodone 5 mg tablet 5 mg PO Q4H PRN moderate to severe 06/07/24 Rx pain #14 tabs sennosides 8.6 mg-docusate sodium 1 tab PO QAM 7 days #7 tabs 06/07/24 Rx 50 mg tablet (Senokot-S) umeclidinium 62.5 mcg-vilanterol 1 inh inhalation DAILY #60 ea 06/07/24 Rx 25 mcg/actuation powdr for inhalation (Anoro Ellipta) Hospital Stay Data Consultations 06/04/24 00:01 ED Decision to Admit Stat 06/04/24 08:00 Consult Pulmonology Routine Procedures Performed Operation Date: 06/05/24 07:00 Actual Procedures p Bronchoscopy Res[facility] - [facility] Diagnostic Imagining Performed Laboratory Results WBC 8.60 K/ul (4.8-10.8) 06/05/24 05:52 RBC 3.72 M/uL (4.20-5.40) L 06/05/24 05:52 Hgb 12.2 g/dl (12.0-16.0) 06/05/24 05:52 POC Hgb 12.9 g/dl (12.0-16.0) 06/03/24 21:44 Hct 35.9 % (37.0-47.0) L 06/05/24 05:52 POC Hct 38 % (37-47) 06/03/24 21:44 MCV 96.5 fL (80.0-100.0) 06/05/24 05:52 MCH 32.8 pg (25.0-34.0) 06/05/24 05:52 MCHC 34.0 g/dL (32.0-36.0) 06/05/24 05:52 RDW Std Deviation 45.5 fL (36.4-46.3) 06/05/24 05:52 RDW Coeff of Hailey 12.8 % (11.5-14.5) 06/05/24 05:52 Plt Count 270 K/uL (130-400) 06/05/24 05:52 MPV 9.1 fL (9.4-12.4) L 06/05/24 05:52 Immature Gran % (Auto) 0.5 % 06/05/24 05:52 Neut % (Auto) 63.6 % 06/05/24 05:52 Lymph % (Auto) 24.3 % 06/05/24 05:52 [place] % (Auto) 7.8 % 06/05/24 05:52 Eos % (Auto) 3.1 % 06/05/24 05:52 Baso % (Auto) 0.7 % 06/05/24 05:52 Neut # (Auto) 5.47 K/uL (1.40-6.50) 06/05/24 05:52 Lymph # (Auto) 2.09 K/uL (1.20-3.40) 06/05/24 05:52 [place] # (Auto) 0.67 K/uL (0.11-0.59) H 06/05/24 05:52 Eos # (Auto) 0.27 K/uL (0.00-0.50) 06/05/24 05:52 Baso # (Auto) 0.06 K/uL (0.00-0.20) 06/05/24 05:52 Immature Gran # (Auto) 0.04 K/uL (0.01-0.20) 06/05/24 05:52 POC Sodium 140 mmol/L (135-144) 06/03/24 21:44 Sodium 138 mmol/L (136-145) 06/05/24 05:52 POC Potassium 3.3 mmol/L (3.3-5.0) 06/03/24 21:44 Potassium 4.9 mmol/L (3.5-5.1) 06/05/24 05:52 POC Chloride 104 mmol/L (101-112) 06/03/24 21:44 Chloride 107 mmol/L (98-107) 06/05/24 05:52 Carbon Dioxide 28 mmol/L (21-32) 06/05/24 05:52 POC Total CO2 17 mmol/L (24-31) L 06/03/24 21:44 Anion Gap 3 (3-11) 06/05/24 05:52 POC Anion Gap 23.0 mmol/L (16-25) 06/03/24 21:44 POC BUN 9 mg/dl (7-18) 06/03/24 21:44 BUN 6 mg/dl (6-23) 06/05/24 05:52 Creatinine 0.56 mg/dl (0.6-1.2) L 06/05/24 05:52 POC Creatinine 0.7 mg/dl (0.6-1.3) 06/03/24 21:44 Est Cr Clr Drug Dosing 65.9 ml/min 06/05/24 05:52 eGFR 98.73 06/05/24 05:52 BUN/Creatinine Ratio 10.7 (10-20) 06/05/24 05:52 Glucose 83 mg/dl (70-99(Fasting)) 06/05/24 05:52 POC Glucose (other) 110 mg/dl (70-99) H 06/03/24 21:44 Calcium 8.9 mg/dl (8.6-10.3) 06/05/24 05:52 POC Ioniz Calcium Hien 1.15 mmol/l (1.12-1.32) 06/03/24 21:44 Magnesium 1.9 mg/dl (1.7-2.4) 06/05/24 05:52 Total Bilirubin 0.3 mg/dl (0.2-1.0) 06/03/24 21:22 AST 15 U/L (13-39) 06/03/24 21:22 ALT 8 U/L (7-52) 06/03/24 21:22 Alkaline Phosphatase 90 U/L (34-104) 06/03/24 21:22 Troponin I High Sens 3.6 pg/ml (0-14) 06/03/24 21:22 Total Protein 7.2 gm/dl (6.0-8.3) 06/03/24 21:22 Albumin 4.3 gm/dl (3.4-5.0) 06/03/24 21:22 Globulin 2.9 gm/dl (2.5-4.0) 06/03/24 21:22 Albumin/Globulin Ratio 1.5 (0.9-2) 06/03/24 21:22 Lipase 25 U/L (11-82) 06/03/24 21:22 Procalcitonin < 0.02 ng/ml (0-0.5) 06/04/24 07:20 Fluid Neutrophils % 8 % 06/05/24 09:03 Fluid Lymphocytes % 2 % 06/05/24 09:03 Fl Monocyt/Macrophag % 90 % 06/05/24 09:03 Fluid Comment 06/05/24 09:03 Hepatitis C Ab Screen Negative (Negative) 06/04/24 07:20 Impressions Abdomen/Pelvis CT 06/03/24 21:33 Exam(s): CT ABDOMEN + PELVIS With Contrast IV Amt: 90 ml optiray 320 EXAM: CT Abdomen and Pelvis With Intravenous Contrast CLINICAL HISTORY: Reason for exam: r side abd pain s/p fall. TECHNIQUE: Axial computed tomography images of the abdomen and pelvis with intravenous contrast. CTDI is 21.42 mGy and DLP is 409.87 mGy-cm. Automated exposure control was utilized for the study. A dose lowering technique was utilized adhering to the principles of ALARA. CONTRAST: Patient received 90 ml optiray 320 of IV contrast COMPARISON: 10/25/23 FINDINGS: Lung bases: Bases: Reported separately. ABDOMEN: Liver: No evidence of hepatic injury. Stable subcentimeter hypodensities in the liver, statistically cysts. Gallbladder and bile ducts: Unremarkable. No calcified stones. No ductal dilation. Pancreas: Unremarkable. No ductal dilation. No evidence of pancreatic injury. Spleen: Unremarkable. No evidence of splenic injury. Adrenals: No evidence of adrenal injury. Stable thickening of the adrenal gland suggesting hyperplasia. Kidneys and ureters: Unremarkable. No hydronephrosis. No evidence of renal injury. Stomach and bowel: No evidence of bowel injury. Sigmoid diverticulosis. No obstruction. No mucosal thickening. PELVIS: Appendix: Appendix not identified. Bladder: Unremarkable. No evidence of bladder injury. Reproductive: Hysterectomy. ABDOMEN and PELVIS: Intraperitoneal space: Unremarkable. No free fluid or free air. Bones/joints: L2-L3 disc degeneration. No acute fracture or dislocation. Soft tissues: Unremarkable. Vasculature: No evidence of vascular injury. Atherosclerosis. No abdominal aortic aneurysm. Lymph nodes: Unremarkable. No enlarged lymph nodes. IMPRESSION: No acute findings in the abdomen or pelvis. Electronically signed by: Madison Mullen M.D. 06/03/24 23:[address] 06/03/24 21:33 Exam(s): CT C SPINE EXAM: CT Cervical Spine Without Intravenous Contrast CLINICAL HISTORY: Reason for exam: fall. TECHNIQUE: Axial computed tomography images of the cervical spine without intravenous contrast. CTDI is 21.42 mGy and DLP is 409.87 mGy-cm. Automated exposure control was utilized for the study. A dose lowering technique was utilized adhering to the principles of ALARA. COMPARISON: No relevant prior studies available. FINDINGS: Vertebrae: No acute fracture or traumatic subluxation. Discs/spinal canal/neural foramina: Degeneration at the atlantodental joint. Lower cervical disc degeneration, greatest at C6-C7. Multilevel bilateral facet joint degeneration with 2 mm degenerative anterolisthesis of C5. Lower cervical uncovertebral joint degeneration. No spinal canal stenosis. Varying degrees of foraminal narrowing, greatest on the left at C3-C4 and C4-C5. Soft tissues: Unremarkable. IMPRESSION: No acute findings in the cervical spine. Electronically signed by: Madison Mullen M.D. 06/03/24 23:[address] 06/03/24 21:33 Exam(s): CT CHEST With Contrast IV Amt: 90 ml optiray 320 EXAM: CT Chest With Intravenous Contrast CLINICAL HISTORY: Reason for exam: r chest wall trauma. TECHNIQUE: Axial computed tomography images of the chest with intravenous contrast. CTDI is 21.42 mGy and DLP is 409.87 mGy-cm. Automated exposure control was utilized for the study. A dose lowering technique was utilized adhering to the principles of ALARA. CONTRAST: Patient received 90 ml optiray 320 of IV contrast COMPARISON: No relevant prior studies available. FINDINGS: Lungs: Scarring at the lung apices. Subsegmental right basilar atelectasis. Partial left lower lobe collapse. Some low-density endobronchial opacification noted in the left lower lobe suggesting mucous plugging or aspiration. Some peripheral ground-glass opacity anterior right middle lobe and lateral left upper lobe could represent mild pulmonary contusions in the setting of trauma. Lungs appear otherwise clear. Pleural space: No pneumothorax. Trace bilateral pleural effusions. Heart: Coronary artery atherosclerosis. No cardiomegaly or pericardial effusion. Mediastinum: Unremarkable. No mediastinal hematoma. Bones/joints: Acute mildly displaced fractures posterior right ribs 9-10. No dislocation. Soft tissues: Unremarkable. Vasculature: No traumatic aortic injury, aneurysm, or dissection. Lymph nodes: Unremarkable. No enlarged lymph nodes. IMPRESSION: 1. Acute mildly displaced fractures posterior right ribs 9-10. Subjacent pleural thickening reflecting extrapleural hematoma formation. 2. Partial left lower lobe collapse. Some low-density endobronchial opacification noted in the left lower lobe suggesting mucous plugging or aspiration. 3. Some peripheral ground-glass opacity anterior right middle lobe and lateral left upper lobe could represent mild pulmonary contusions in the setting of trauma. 4. Trace bilateral pleural effusions. Electronically signed by: Madison Mullen M.D. 06/03/24 23:[address] 06/03/24 21:33 Exam(s): CT HEAD Without Contrast EXAM: CT Head Without Intravenous Contrast CLINICAL HISTORY: Reason for exam: fall. TECHNIQUE: Axial computed tomography images of the head/brain without intravenous contrast. CTDI is 35.79 mGy and DLP is 624.41 mGy-cm. Automated exposure control was utilized for the study. A dose lowering technique was utilized adhering to the principles of ALARA. COMPARISON: No relevant prior studies available. FINDINGS: Brain: Age-related parenchymal volume loss. Mild chronic small vessel ischemic change. [place]-white matter differentiation maintained. No hemorrhage, mass effect, parenchymal edema, or midline shift. Ventricles: No hydrocephalus. Bones/joints: No acute fracture. Soft tissues: Unremarkable. Vasculature: Intracranial atherosclerosis. Sinuses: Unremarkable as visualized. Mastoid air cells: No significant mastoid effusion. IMPRESSION: No acute intracranial process. Electronically signed by: Madison Mullen M.D. 06/03/24 22:57 PM Chest X-Ray 06/06/24 10:21 XR chest 1V portable CLINICAL HISTORY: f/u COMPARISON STUDY: 06/05/2024 FINDINGS: Single view chest demonstrates slight clearing of a left basilar opacity. Persistent airspace opacity and discoid atelectasis are noted. The hazy opacity at the right lung base is unchanged. No new lesions have developed. No pneumothorax. Heart size and pulmonary vascularity are unremarkable. IMPRESSION: Slight improvement left basilar opacity; otherwise stable exam ACT 112: Negative or not required by law. Electronically signed by: Rosario Espinosa M.D. 06/06/2024 10:49 AM Pending Results Patient Have Any Pending Studies at Discharge: No Discharge Instructions Given to Patient (Per Discharging Provider) PLEASE REFER TO YOUR NEW MEDICATION LIST AND FOLLOW INSTRUCTIONS CAREFULLY. YOUR NEW MEDICATIONS INCLUDE: Oxycodone-narcotic as needed for severe pain, strictly no driving while taking this pain medication Tylenol-as needed for mild to moderate pain Anoro Ellipta-inhaler for COPD control Mucinex-to help with loosening up Mucus Please continue using your incentive spirometer and flutter valve at home. Please mention to your PCP regarding your episode of blood in the stools while in the hospital. PLEASE CALL YOUR PRIMARY CARE PHYSICIAN OR RETURN TO THE ER IF WITH WORSENING OF SYMPTOMS, INCLUDING Chest/rib pain, shortness of breath, cough, fevers or chills, bloody or black stools, etc FOLLOW UP WITH PRIMARY CARE PHYSICIAN OUTLINED ABOVE.Follow-up with customer insight analyst Dr. Dillon in 2 weeks. Please call his office for an appointment. Contact information outlined above. Total Time Total Time Spent Total Time Spent (In Minutes): 45 minutes
== END 2024-06-07 12:44 | disposition home or self-care (01) | DRG 184 ==
LOC: ED 21:08 → 2S 06-04 01:02 → SUATTDRO 06-04 02:03